=== PATIENT | male | born 1940 | race Caucasian/White ===

== ENCOUNTER 2018-10-19 05:28 | Observation (INO) ==
--- NOTE | 2018-09-23 09:39 | PAT Medication Instructions ---
Medication Instructions Date of Service September 23, 2018 Home Medications Red Raspberry Leaves 2 cap PO DAILY aspirin [Aspir-81] 162 mg PO DAILY finasteride 5 mg PO DAILY glipizide 20 mg PO DAILY lisinopril-hydrochlorothiazide 1 tab PO DAILY metformin 2,000 mg PO DAILY ASK your prescriber and surgeon aspirin [Aspir-81] 162 mg PO DAILY STOP taking 2 weeks before surgery Red Raspberry Leaves 2 cap PO DAILY DO NOT take the morning of surgery glipizide 20 mg PO DAILY lisinopril-hydrochlorothiazide 1 tab PO DAILY metformin 2,000 mg PO DAILY Take morning of surgery With a small sip of water, OTHERWISE NOTHING TO EAT OR DRINK AFTER MIDNIGHT: finasteride 5 mg PO DAILY Other Notes If you have any questions please call us at [phone] or [phone] or [phone] or [phone]
--- NOTE | 2018-09-23 12:35 | Anesthesiology Consultation ---
Date of Service September 23, 2018 Assessment & Plan (1) Encounter for pre-operative examination: - No previous anesthesia records re: intubation. -Patient does have concerns re: transportation. Uses a public medical transportation to get to appointments that would need to have 3 days notice p rior to bringing him to surgery. Explained that surgical schedule would not be ready at that point. Discussed with Maria Luisa Villanueva in Case Management and it was decided that, at patients request, patient would drive himself in the morning of surgery and park in a [employer] parking space. At that point he will call [phone] and notify the groover operator that he is here and someone will be sent to help get him out of his car and into a wheelchair. Patient will have family drive his car home later that day. Patient would like to be discharged to a rehab facility, but I told him this would need to be discussed with surgeon and case management after surgery. - Discussed with patient several times how to call the day before surgery to obtain what time he is to be here the day of surgery. Phone number [phone]) was highlighted for patient, along with the times that he is supposed to call (2-7pm) on 10/18/18. - Patient could be a possible difficult intubation due to thicker neck and shortened thyromental distance. Chart Review Chart Review: Acceptable Risk for Surgery and Patient seen in Pre Admission Testing Consults Requested medical (Dr. Brennan (09/05)) Patient was seen by his PCPs office on 09/05 for preoperative examination. Per note from that visit, patient is "medically cleared for surgery." Teaching & Discussion Pre-Anesthesia Teaching/Discussion Notes: Instructed NPO after midnight before surgery, except medications with 15 cc of water. Medication instructions provided according to the PAT guidelines. History Surgery Operation Date: 10/19/18 08:50 Proposed Procedures p Reconstruction of Right Chronic Quadriceps Rupture with Achilles Tendon Allograft - Jame Trevino MD Height/Weight Height: 5 ft 11 in Allergies Allergy/AdvReac Type Severity Reaction Status Date / Time No Known Allergies Allergy Unverified 09/21/18 10:25 Medications Home Medications Medication Instructions Recorded Confirmed Last Taken Red Armin Leaves 2 cap PO DAILY 09/21/18 09/21/18 Unknown aspirin [Aspir-81] 162 mg PO DAILY 09/21/18 09/21/18 Unknown finasteride 5 mg PO DAILY 09/21/18 09/21/18 Unknown glipizide 20 mg PO DAILY 09/21/18 09/21/18 Unknown lisinopril-hydrochlorothiazide 1 tab PO DAILY 09/21/18 09/21/18 Unknown metformin 2,000 mg PO DAILY 09/21/18 09/21/18 Unknown Past Medical History Medical History Diabetes History of asthma Hypertension Mobility impaired REASON FOR UPCOMING SURGERY Exercise / Class Metabolic Activity IV < 2 Limit ADL/Bedbound (Wheelchair bound. Can self transfer. ) Past Surgical History Surgical History History of appendectomy History of colonoscopy History of tonsillectomy History of total left knee replacement (TKR) Hx of foot surgery BOTH Past Anesthesia History No Hx of Anesthesia Complications and No Family Hx of Anesthesia Complications History of PONV No Hx of PONV and Hx of Motion Sickness Social History Smoking Status: Never smoker Do You Dip or Chew Tobacco: No Hx Alcohol Use: Yes Alcohol type: beer and hard liquor Alcohol Intake Frequency Comment: 1 BEER A WEEK Hx Substance Use: No substance use type: does not use Review of Systems Patient denies chest pain, shortness of breath, dyspnea on exertion, reflux, cough, wheezing, palpitations. +Joint Pain (Knees) Physical Exam Vital Signs BP: 144/89 P: 77 R: 16 T: 97.6 SPO2: 97% on RA Constitutional + morbidly obese ENMT Mouth: + dentures (Full Upper plate) and + poor dentition (on bottom with missing teeth) Thyromental Distance: < 3.5 Finger Breadths (2) Mallampati Class: I Neck normal visual inspection and + shortened thyromental distance Respiratory normal respiratory effort Auscultation: lungs clear to auscultation bilaterally Cardiovascular Rate/Rhythm: regular rate and regular rhythm Heart Sounds: no murmur Vessels: no carotid bruit Neurologic moves all extremities Psychiatric Orientation: alert and oriented x 3 Repeats self often. Easily confused. Testing Laboratory Results 09/23/18 13:23 PT 9.8 Seconds (9.0-12.0) 09/23/18 13:23 INR 1.0 (0.9-1.1) 09/23/18 13:23 APTT 25.2 Seconds (21.0-31.0) 09/23/18 13:23 [facility] 09/05/18 SODIUM: 140 POTASSIUM: 4.2 CHLORIDE: 105 CO2: 28.0 BUN: 16 CREATININE: 0.96 GLUCOSE: 102 H HgBA1C: 6.8 Electrocardiogram Date: 09/23/18 Findings: + NSR @ (75), + NSST changes and + no change from (05/22/15)
[2018-09-23 13:49] LABS: Basophils # (auto) 0.04 K/uL (0-0.2); Basophils % (auto) 0.6 %; Eosinophils # (auto) 0.25 K/uL (0-0.5); Eosinophils % (auto) 3.5 %; Hematocrit (blood only) 36.8 % (42-52); Hemoglobin 12.2 g/dL (14.0-18.0); Immature Granulocytes # (auto) 0.03 K/uL (0.00-0.02); Immature Granulocytes % (auto) 0.4 %; Lymphocytes # (auto) 1.95 K/uL (1.2-3.4); Lymphocytes % (auto) 27.5 %; Mean Corpuscular Hgb Conc 33.2 g/dL (32-36); Mean Corpuscular Volume 87.2 fL (80-100); Mean Platelet Volume 9.1 fL (7.4-10.4); Monocytes # (auto) 0.35 K/uL (0.11-0.59); Monocytes % (auto) 4.9 %; Neutrophils # (auto) 4.48 K/uL (1.4-6.5); Neutrophils % (auto) 63.1 %; Platelet Count 177 K/uL (130-400); RDW Coefficient of Variation 13.7 % (11.5-14.5); RDW Standard Deviation 43.4 fL (36.4-46.3); Red Blood Count 4.22 M/uL (4.7-6.1)
[2018-09-23 14:05] LABS: Partial Thromboplastin Ratio 0.9; Partial Thromboplastin Time 25.2 Seconds (21.0-31.0); Prothrombin Time 9.8 Seconds (9.0-12.0)
--- NOTE | 2018-09-28 19:18 | History and Physical Report ---
DATE OF ADMISSION: 10/19/2018 PATIENT OF: Jame Trevino MD. CHIEF COMPLAINT: Right quadriceps tendon chronic rupture. 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 His knee collapsed at that time and he reportedly had surgery by Dr. Fairchild at that time. He states he never got any better. He has weakness and cannot bear weight on the leg. He states he can drive with it. He has difficulty with motion. He previously spent several months at [facility] to rehabilitate his leg, but it did not get any better. He has been confined to a wheelchair for any significant distance. He is able to use a walker in his house for very short distances. He lives with his daughter and son-in-law. He has had cortisone injections in the past without improvement. He elects to proceed with right quadriceps reconstruction of chronic rupture with Achilles tendon allograft after being educated about the potential risks and outcomes. Preoperative imaging has been obtained. PAST MEDICAL HISTORY: Significant for osteoarthritis, diabetes, hypertension, known quadriceps tendon rupture, history of asthma. PREVIOUS SURGERIES: Tonsillectomy with adenoidectomy, appendectomy, foot surgery, left knee quadriceps tendon repair, right knee quadriceps tendon repair. CURRENT MEDICATIONS: Aspirin daily, finasteride unknown dose daily, glipizide unknown dose daily, lisinopril unknown dose daily, metformin 2 tablets daily unknown dose, red raspberry leaf concentrate daily. ALLERGIES: NKDA. SOCIAL HISTORY: The patient lives with his daughter and son-in-law. No tobacco use. Occasional ETOH use. Single. FAMILY HISTORY: Noncontributory. Parents are . REVIEW OF SYSTEMS: A total of 10 systems are reviewed and are significant only for the above-stated conditions. PHYSICAL EXAMINATION: VITAL SIGNS: Temperature 36.5, BP 150/80, heart rate 75, O2 sat 96% on room air. BMI of 32. GENERAL: A well-developed, well-nourished elderly white male in no acute distress. He is sitting in a wheelchair. Alert and oriented. Seems easily distracted. Conversation wanders. SKIN: Warm and dry with fair turgor. No rashes or lesions. No ecchymosis or erythema. Well-healed surgical scars present on both knees. No significant intraarticular effusion today. Palpable osteophytes. HEENT: Normocephalic, atraumatic. Eyes PERRLA, EOMI. Nares patent bilaterally without turbinate enlargement. Oropharynx without erythema or exudate. No lesions noted. Uvula midline. Oral mucosa moist. Fair dentition. Upper denture plate is noted. Lower fillings are noted. HEART: RRR. No MGR. LUNGS: Clear to auscultation bilaterally. No crackles, rhonchi or wheezing. Good air movement. ABDOMEN: Obese. Bowel sounds present x4, soft, nontender. No organomegaly. No masses. MUSCULOSKELETAL: Right knee has the above-stated scar as stated. Palpable defect in the right quadriceps. Superior migration of the distal quadriceps muscle. Passively, he is able to extend close to 0. Flexion to just past 90. No active extension against gravity. There is discomfort with palpation over the medial joint line. No lateral joint line discomfort. Stable collateral ligaments. NEUROLOGIC: Gross sensation is intact across both lower extremities by soft touch. DATA: Radiographic imaging previously obtained shows moderate medial compartment osteoarthritis of the knee as well as the patellofemoral joint. Periarticular osteophytes and joint space narrowing are present. He has a left total knee. Deficit is noted in the distal quadriceps tendon. IMPRESSION: Right quadriceps chronic rupture. PLAN: Postoperative prescriptions for Percocet and Coumadin will be provided at discharge from the hospital. Anticipate that this will be done under 23-hour observation. Preoperative lab work and EKG have been ordered. Medical clearance has been requested from his PCP. Anticipate discharge to either [facility] or to home. He already has a walker.
[2018-10-19] MEDS ORDERED: LR 15ML/HR IV SCH ×2 (06:00)
[2018-10-19] MEDS ORDERED: CEFAZOLIN 2000MG 2,000 MG/15 ML SYR IV SCH (06:00)
--- NOTE | 2018-10-19 06:31 | History & Physical Bridge Note ---
Date of Service October 19, 2018 History & Physical Bridge Note I have examined the patient, reviewed the History & Physical and in the interval since the performance of the History & Physical I have noted the following changes of clinical significance: consent obtained. no guarentees .no changes noted
[2018-10-19] MEDS ORDERED: ROPIVACAINE 0.5% 5 MG/ML 30 ML VIAL ONE (06:32)
[2018-10-19] MEDS ORDERED: MIDAZOLAM HCL 1 MG/ML 2ML VIAL ONE (07:37)
[2018-10-19] MEDS ORDERED: ATROPINE SULFATE 0.1 MG/ML 10ML SYR IV PRN (08:10)
[2018-10-19] MEDS ORDERED: ePHEDrine sulfate 50 MG/ML AMP IV PRN (08:10)
[2018-10-19] MEDS ORDERED: PROPOFOL IV EMULSION 10 MG/ML 20 ML VIAL IV ONE (08:14)
[2018-10-19] MEDS ORDERED: DEXAMETHASONE SOD INJ 4 MG/ML VIAL ONE (08:14)
[2018-10-19] MEDS ORDERED: fentaNYL citrate 100 MCG/2 ML VIAL ONE (08:14)
[2018-10-19] MEDS ORDERED: ONDANSETRON INJ 2 MG/ML 2 ML VIAL ONE ×2 (08:14→11:52)
[2018-10-19] MEDS ORDERED: LIDOCAINE HCL 2% 2 ML VIAL/AMP(20MG/ML) INFIL ONE (08:14)
[2018-10-19] MEDS ORDERED: BUPIVACAINE/EPINEPHRINE 0.5% MPF 1:200,000 30 ML VIAL ONE (09:22)
[2018-10-19] MEDS ORDERED: GLYCOPYRROLATE 0.2 MG/ML VIAL ONE (09:46)
[2018-10-19] MEDS ORDERED: ePHEDrine sulfate 50 MG/ML SYR ONE (09:46)
[2018-10-19] MEDS ORDERED: ALBUTEROL HFA INHALER 8.5 GM ONE (09:50)
--- NOTE | 2018-10-19 10:54 | Post Operative Brief Note ---
Immediate Post Op Note v1 Date of Surgery October 19, 2018 Pre & Post Diagnosis Operation Date: 10/19/18 08:50 Pre-Op Diagnosis: Right Quadriceps Tendon Chronic Rupture Post-Op Diagnosis: Right Quadriceps Tendon Chronic Rupture Procedure Operation Date: 10/19/18 08:50 Actual Procedures p Reconstruction of Right Chronic Quadriceps Rupture with Achilles Tendon Allograft(Right) - Jame Trevino MD Surgeon Jame Trevino MD Slag Skimmer stuart/tamara Estimated Blood Loss 50 Findings Consistent with Post-Op Diagnosis
--- NOTE | 2018-10-19 11:17 | Operative Report ---
Post Operative Report Pre & Post Diagnosis Operation Date: 10/19/18 08:50 Pre-Op Diagnosis: Right Quadriceps Tendon Chronic Rupture Post-Op Diagnosis: Right Quadriceps Tendon Chronic Rupture Procedure Operation Date: 10/19/18 08:50 Actual Procedures p Reconstruction of Right Chronic Quadriceps Rupture with Achilles Tendon Allograft(Right) - Jame Trevino MD Surgeon Jame Trevino MD Gameplay Engineer vi/tamara Estimated Blood Loss 50 Findings Consistent with Post-Op Diagnosis Specimens None Complications none Disposition Accompanied Patient To Recovery: Yes Disposition: Recovery Room Indications 78/M with failed quads rupture repair has elected to go for allograft reconstruction today Description of Procedure Supine position, standard prep and drape, time out for patient safety, exploration through old incision and quads reconstruction with achilles allograft + calcaneal bone block. Please see Dr Trevino's procedure notes for specific details. I was present throughout the case, assited in wound closure, application of splint and transferred the patient to PACU in stable condition. I attest to the content of the Intraoperative Record and any orders documented therein. Any exceptions are noted below.
[2018-10-19] MEDS: HYDROmorphone INJ 2 MG/ML SYR/VIAL IV PRN ×3 (11:30→11:45)
--- NOTE | 2018-10-19 11:31 | Operative Report ---
DATE OF OPERATION: 10/19/2018 SURGEON: Jame Trevino MD. ASSISTANTS: El is the fellow and Zac is second junior assistant manager PA. PREOPERATIVE DIAGNOSES: Chronic quadriceps rupture with marked deficiency and extensor lag of the right lower extremity, osteoarthritis of the right knee. POSTOPERATIVE DIAGNOSES: Chronic quadriceps rupture with marked deficiency and extensor lag of the right lower extremity, osteoarthritis of the right knee. OPERATION PERFORMED: Reconstruction of the extensor mechanism using Achilles allograft.Right knee. PERIOPERATIVE SITUATION: Medically cleared male who is limited basically to a wheelchair activity based on the fact he has bilateral chronic quadriceps ruptures on the left knee. He has a knee replacement. On the right knee, at this point in time, he wants to try to salvage his own knee by doing an extensor mechanism reconstruction. A fusion was offered to him. He denied that request. He understands that this may not work. DESCRIPTION OF PROCEDURE: The patient was appropriately identified, site verified, consent verified. Antibiotics were confirmed as being given. The right lower extremity was prepped and draped in usual routine fashion. There was no tourniquet applied or utilized. The midline exposure was blocked with 0.5% plain Marcaine and full thickness skin flaps raised. The area of the defect was quite obvious. There was actually a communication directly in the joint. All of this was excised, leaving about 3.5 to 4 cm gap. The adhesions on the undersurface of the quadriceps were then mobilized digitally and with scissors. Care taken to protect any neurovascular structures. Good mobilization was obtained. This got the defect down to about 3 cm once it was mobilized. The patella was then dissected subperiosteally on its dorsal surface anteriorly. A trough was then cut with a power bur and then 2 large JuggerKnot anchors were placed. They were double loaded. They were not palpable into the defect or into the intraarticular side of the joint. Once this was done, the graft was then trimmed to fit into the socket that was made in the dorsal surface of the patella with a power bur, it was roughly a centimeter squared area. This was then also tied in with a smaller JuggerKnot placed distally and then placed through the center of the graft, tied that down nicely and then the soft tissue over the top of the graft was sewn over with a stitch and additional sutures and then proximally, the graft was anchored with the JuggerKnots that were placed in the superior surface of the patella. This fixed the area very very nicely and was able to pull on that with no difficulty and no displacement. Once this was all completed, the graft was then placed and run superiorly with a Fate whipstitch and baseball stitches along the medial and lateral side and then the area was also closed with #2 Vicryl medially and laterally. The graft was then flapped down over itself and closed at the lateral defect lateral retinaculum and then was anchored back down the patella with multiple sutures. The 2 remaining sutures that were left on the double loaded anchors were then tied through all of this and created a tension band over the top of the dorsal surface of the area of the bone block inlay. This allowed excellent repair. The knee could then be placed through a range of motion of 0-40-50 degrees with no difficulty. There was good tension on the extensor mechanism. The wound was then irrigated. EBL was roughly 40-50 mL. Fluid per anesthesia. No pathology pending. Wound was then closed with 2-0 Vicryl and stainless steel clips. Appropriate dressing applied including a splint and a knee immobilizer. He will be kept full weightbearing with no range of motion of the knee for 4-6 weeks. DVT prophylaxis with Coumadin. Overall prognosis for this knee is very guarded. I attest to the content of the Intraoperative Record and any orders documented therein. Any exceptions are noted below. DEMETRIUS
--- NOTE | 2018-10-19 11:51 | XRay Report ---
XR knee RT 2V routine CLINICAL HISTORY: post op R knee COMPARISON STUDY: Right knee 05/24/2018. FINDINGS: Midline anterior skin arabella are in place. Soft tissue swelling and soft tissue gas anteri sami consistent with postoperative change. Moderate tricompartmental osteoarthritis. No erosive horton es identified. IMPRESSION: Anterior soft tissue swelling/gas with anterior skin arabella consistent with the recent postoperative change. Electronically signed by: Deuce Watts M.D. 10/19/2018 11:49 AM
[2018-10-19] MEDS ORDERED: ONDANSETRON INJ 2 MG/ML 2 ML VIAL IV PRN ×2 (11:53→14:02)
--- NOTE | 2018-10-19 11:53 | Progress Note ---
DATE: 10/19/2018 Status post quadriceps reconstruction of his right lower extremity. The patient is doing well, is awake, alert, has no chest pain, shortness of breath, fever, chills, nausea, vomiting or headache. Neurovascular check of right lower extremity reveals active extension and flexion of the toes, there is minimal discomfort. Wound dressing is clean, dry and intact. ASSESSMENT: Doing well status post quadriceps reconstruction. I will have case management see him for potential transfer versus home services. He will need to keep his leg straight without bending it for at least 4 weeks, maybe longer. Status post chronic quadriceps reconstruction procedure. He can be weightbearing, but no bending of the knee. He understands this. Deep venous thrombosis prophylaxis with Coumadin. DEMETRIUS
--- NOTE | 2018-10-19 12:02 | Operative Report ---
Post Operative Report Pre & Post Diagnosis Operation Date: 10/19/18 08:50 Pre-Op Diagnosis: Right Quadriceps Tendon Chronic Rupture Post-Op Diagnosis: Right Quadriceps Tendon Chronic Rupture Procedure Operation Date: 10/19/18 08:50 Actual Procedures p Reconstruction of Right Chronic Quadriceps Rupture with Achilles Tendon Allograft(Right) - Jame Trevino MD Surgeon ZE Trevino MD Clinical Applications Manager vi/tamara Estimated Blood Loss 50 Findings Consistent with Post-Op Diagnosis Specimens None Drains None Complications none Disposition Accompanied Patient To Recovery: Yes Disposition: Recovery Room Indications This 78-year-old white male presented to the office with complaints of right quadricep weakness and inability to ambulate due to his weakness. Patient previously had a quadriceps tendon rupture that was repaired. It has failed. He elected to proceed with surgical intervention after being educated about potential risks and outcomes. Preoperative imaging was obtained. Description of Procedure Patient was administered a regional block and then taken to the operating room where he was given general anesthesia. He was prepped and draped in the usual sterile fashion. Please see Dr. Trevino's operative report for specifics of the procedure. I was present for the entire case from initial patient positioning through final wound closure. Assistance was provided in tissue retraction, hemostasis, graft preparation, graft placement, and final wound closure. Patient was taken to the recovery room in satisfactory condition. I attest to the content of the Intraoperative Record and any orders documented therein. Any exceptions are noted below.
[2018-10-19] MEDS ORDERED: PROMETHAZINE HCL 6.25 MG in SODIUM CHLORIDE 0.9% 50 ML IV STA (12:07)
[2018-10-19] MEDS ORDERED: BISACODYL 10 MG SUPP PR PRN (14:02)
[2018-10-19] MEDS ORDERED: HYDROmorphone INJ 0.5 MG/0.5 ML SYR IV PRN (14:02)
[2018-10-19] MEDS ORDERED: MAGNESIUM HYDROXIDE SUSP 30 ML UDC PO PRN (14:02)
[2018-10-19] MEDS ORDERED: DiphenhydrAMINE HCL 50 MG/ML VIAL IV PRN (14:02)
[2018-10-19] MEDS ORDERED: TRAMADOL HCL 50 MG TABLET PO PRN (14:02)
[2018-10-19] MEDS ORDERED: SODIUM CHLORIDE 0.9% 1000ML 1,000 ML IV SCH (14:02)
[2018-10-19] MEDS ORDERED: TAMSULOSIN HCL 0.4 MG CAP PO PRN (14:02)
[2018-10-19] MEDS ORDERED: METOCLOPRAMIDE HCL INJ 5 MG/ML 2 ML VIAL IV PRN (14:02)
[2018-10-19] MEDS ORDERED: ALUMINUM/MAGNESIUM SUSP 30 ML UDC PO PRN (14:02)
[2018-10-19] MEDS ORDERED: NALOXONE HCL 0.4 MG/1 ML VIAL/CARP IV PRN (14:02)
[2018-10-19] MEDS ORDERED: CARBOHYDRATES FOR HYPOGLYCEMIA PO PRN (14:30)
[2018-10-19] MEDS ORDERED: GLUCAGON FOR INJ 1 MG VIAL IM PRN (14:30)
[2018-10-19] MEDS ORDERED: GLUCOSE 40% GEL 15 GM TUBE PO PRN (14:30)
[2018-10-19] MEDS ORDERED: DEXTROSE 50% 50 ML SYRINGE IV PRN (14:30)
[2018-10-19] MEDS ORDERED: GLUCOSE 10 TABS/TUBE PO PRN (14:30)
[2018-10-19] MEDS: ACETAMINOPHEN 500 MG TAB PO SCH ×2 (14:42→21:17)
[2018-10-19] MEDS: ORTHO WARFARIN NOMOGRAM SCH (14:46)
--- NOTE | 2018-10-19 15:36 | Anesthesiology Progress Note ---
Date of Service October 19, 2018 Anesthesia Post Procedure Vital Signs Vital Signs: Temp Pulse Pulse Pulse Resp BP BP 10/19/18 15:22 36.3 C L 79 16 145/67 H 10/19/18 14:03 36.4 C L 75 12 142/71 H 10/19/18 13:20 36.4 C L 80 8 L 148/73 H 10/19/18 12:57 36.2 C L 10/19/18 12:55 78 14 10/19/18 12:51 68 14 10/19/18 12:50 68 67 14 154/62 H 154/62 H 10/19/18 12:46 69 14 10/19/18 12:45 67 14 150/60 H 10/19/18 12:41 66 14 10/19/18 12:40 63 66 12 156/61 H 156/61 H 10/19/18 12:36 64 14 10/19/18 12:35 64 12 140/60 10/19/18 12:31 56 L 14 10/19/18 12:30 59 L 60 16 151/69 H 151/69 H 10/19/18 12:25 77 17 10/19/18 12:24 75 23 176/78 H 10/19/18 12:21 81 19 10/19/18 12:20 36.8 C 87 88 16 184/78 H 176/78 H 10/19/18 12:16 73 17 10/19/18 12:15 61 17 164/74 H 10/19/18 12:11 73 14 10/19/18 12:10 60 14 169/74 H 10/19/18 12:06 70 12 10/19/18 12:05 78 19 177/88 H 10/19/18 12:01 72 14 10/19/18 12:00 73 25 H 169/80 H 10/19/18 11:58 36.3 C L 10/19/18 11:56 59 L 14 10/19/18 11:55 64 14 164/66 H 10/19/18 11:51 71 13 10/19/18 11:50 75 17 157/88 H 10/19/18 11:46 81 20 10/19/18 11:45 79 19 164/76 H 10/19/18 11:41 77 23 10/19/18 11:40 74 19 159/69 H 10/19/18 11:36 73 14 10/19/18 11:35 77 13 161/73 H 10/19/18 11:31 77 18 10/19/18 11:30 76 13 161/78 H 10/19/18 11:26 80 13 10/19/18 11:25 78 19 156/80 H 10/19/18 11:21 79 18 10/19/18 11:20 80 20 152/72 H 10/19/18 11:16 88 18 10/19/18 11:15 88 17 159/72 H 10/19/18 11:14 36.1 C L 89 87 16 157/63 H 157/63 H 10/19/18 09:05 59 L 18 155/74 H 10/19/18 08:55 62 18 152/75 H 10/19/18 08:45 56 L 18 146/87 H 10/19/18 08:35 76 18 151/76 H 10/19/18 08:25 81 18 153/79 H 10/19/18 08:15 70 18 172/96 H 10/19/18 06:42 36.7 C 76 18 143/73 H Pulse Ox 10/19/18 15:22 96 10/19/18 14:03 97 10/19/18 13:20 97 10/19/18 12:57 98 10/19/18 12:55 94 10/19/18 12:51 95 10/19/18 12:50 96 10/19/18 12:46 97 10/19/18 12:45 96 10/19/18 12:41 98 10/19/18 12:40 98 10/19/18 12:36 98 10/19/18 12:35 98 10/19/18 12:31 98 10/19/18 12:30 98 10/19/18 12:25 96 10/19/18 12:24 95 10/19/18 12:21 96 10/19/18 12:20 96 10/19/18 12:16 96 10/19/18 12:15 95 10/19/18 12:11 95 10/19/18 12:10 95 10/19/18 12:06 94 10/19/18 12:05 96 10/19/18 12:01 98 10/19/18 12:00 98 10/19/18 11:58 99 10/19/18 11:56 94 10/19/18 11:55 93 10/19/18 11:51 95 10/19/18 11:50 90 10/19/18 11:46 95 10/19/18 11:45 95 10/19/18 11:41 100 10/19/18 11:40 100 10/19/18 11:36 100 10/19/18 11:35 100 10/19/18 11:31 100 10/19/18 11:30 99 10/19/18 11:26 100 10/19/18 11:25 99 10/19/18 11:21 100 10/19/18 11:20 100 10/19/18 11:16 91 10/19/18 11:15 93 10/19/18 11:14 93 10/19/18 09:05 100 10/19/18 08:55 100 10/19/18 08:45 100 10/19/18 08:35 100 10/19/18 08:25 100 10/19/18 08:15 99 10/19/18 06:42 93 Pain Intensity Right Upper Leg: Pain Intensity: 4 Transfer of Care Handoff Completed per policy Notes Mental Status: alert / awake / arousable Patient Amnestic to Procedure: Yes Nausea / Vomiting: adequately controlled Pain: adequately controlled Airway Patency, RR, SpO2: stable & adequate BP & HR: stable & adequate Hydration State: stable & adequate Anesthetic Complications: no major complications apparent and Pt Satisfied with anesthetic care
[2018-10-19] MEDS ORDERED: WARFARIN SOD 5 MG TAB PO ONE (16:00)
[2018-10-19] MEDS: KETOROLAC TROMETHAMINE 15 MG/ML VIAL IV SCH ×2 (16:40→22:30)
[2018-10-19] MEDS: CEFAZOLIN 2000MG 2,000 MG/15 ML SYR IV SCH (17:56)
[2018-10-19] MEDS: INSULIN ASPART 100 UNITS/ML 3 ML PEN SC SCH ×2 (18:39→21:20)
[2018-10-19] MEDS ORDERED: SENNA 8.6 MG TAB PO SCH (21:00)
[2018-10-19] MEDS: DOCUSATE SODIUM 100 MG CAP PO SCH (21:17)
[2018-10-20] MEDS: CEFAZOLIN 2000MG 2,000 MG/15 ML SYR IV SCH (02:01)
[2018-10-20] MEDS: KETOROLAC TROMETHAMINE 15 MG/ML VIAL IV SCH ×2 (05:02→09:04)
[2018-10-20 05:21] LABS: Hematocrit (blood only) 29.2 % (42-52); Hemoglobin 9.8 g/dL (14.0-18.0); Mean Corpuscular Hgb Conc 33.6 g/dL (32-36); Mean Corpuscular Volume 87.2 fL (80-100); Mean Platelet Volume 8.4 fL (7.4-10.4); Platelet Count 128 K/uL (130-400); RDW Coefficient of Variation 13.8 % (11.5-14.5); RDW Standard Deviation 43.9 fL (36.4-46.3); Red Blood Count 3.35 M/uL (4.7-6.1); White Blood Count 7.46 K/uL (4.8-10.8)
[2018-10-20 05:31] LABS: Prothrombin Time 10.4 Seconds (9.0-12.0)
[2018-10-20 05:50] LABS: BUN Creatinine Ratio 24.4 (10-20); Calcium 8.1 mg/dl (8.5-10.1); Est GFR (African American) 71.5; Est GFR (Non-African American) 61.7; Potassium 3.8 mmol/L (3.5-5.1)
[2018-10-20] MEDS: ACETAMINOPHEN 500 MG TAB PO SCH ×2 (06:38→12:58)
--- NOTE | 2018-10-20 07:41 | Progress Note ---
DATE: 10/20/2018 SUBJECTIVE: Status post extensor mechanism reconstruction, right lower extremity. At this point in time, the patient is doing well with no major issues. He was able to get up out of bed. He denies any severe pain. He is sitting up comfortably. He denies chest pain, shortness of breath, fever, chills, nausea, vomiting, or headache. OBJECTIVE: VITAL SIGNS: Stable. He is afebrile. NEUROLOGIC: Neurovascular check, femoral sciatic nerve is normal. LABORATORY DATA: Hematocrit stable at 29.2. White count 7.46. INR is 1.0. Glucoses are back down into the 90 range. ASSESSMENT AND PLAN: Doing well. At this point in time, he is stable medically to be discharged. He will need to be placed due to his poor orthopedic function of both lower extremities involvement and having a reconstruction of his extensor mechanism although still having a significant defect in his extensor mechanism. He is having some issues with understanding placement requirements. Case management is working with him diligently. Hopefully, they will be able to come to a mutually agreeable decision. He can be discharged again today. DEMETRIUS
--- NOTE | 2018-10-20 07:51 | Discharge Summary ---
CHIEF COMPLAINT: Right leg weakness. 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 He had a repair done over 3 years ago. At this point in time, options were discussed with the patient for potential knee fusion versus extensor mechanism disruption. He also has arthritis in that knee and was also requesting a knee replacement, but in the face of extensor mechanism deficiency that is not possible. At this point in time, he wants to try to give his knee the best shot possible and wants to have the extensor mechanism reconstructed that was performed yesterday. PAST MEDICAL HISTORY: Remarkable for osteoarthritis, diabetes, hypertension, chronic quad ruptures bilaterally, and history of asthma. PAST SURGICAL HISTORY: Includes tonsillectomy, adenoidectomy, appendectomy, foot surgery, left knee quadriceps tendon repair, right knee quadriceps tendon repair, left knee replacement. MEDICATIONS: Previous medications prior to admission include aspirin, finasteride, glipizide, lisinopril, metformin, red raspberry. ALLERGIES: None. SOCIAL HISTORY: Reveals he lives with his daughter and son-in-law. No tobacco or major alcohol use. He is single. FAMILY HISTORY: Noncontributory. Parents are . REVIEW OF SYSTEMS: Noncontributory. ASSESSMENT: Status post extensor mechanism rupture repair and reconstruction with Achilles allograft. At this point in time, the patient did well overnight. He has minimal pain. His neurovascular check of femoral sciatic nerve is normal. He can do a straight leg raise with his splint and his knee immobilizer on. He can do ankle pumps. He has been up out of bed with a walker. Main issue is going to be placement. He has a significant misunderstanding of what this process involves. Case management is working with him to have him understand. We hopefully get him placed today. He is ready for discharge from a medical perspective. He will need functional rehabilitation due to his general deconditioning of both lower extremities. His knee is to be made safe. Follow up with me in 2 weeks. Do not remove the right leg splint, dressing or knee immobilizer, which need to be on at all times / until further seen. We will keep him immobilized for probably 6 weeks.
--- NOTE | 2018-10-20 08:23 | Anesthesiology Progress Note ---
Date of Service October 20, 2018 Anesthesia Post Procedure Vital Signs Vital Signs: Temp Pulse Pulse Pulse Resp BP BP 10/20/18 07:04 36.5 C 79 18 146/71 H 10/20/18 03:49 36.5 C 72 16 123/71 10/19/18 23:16 36.5 C 89 16 158/71 H 10/19/18 19:48 36.4 C L 87 16 163/74 H 10/19/18 16:50 36.5 C 78 16 129/68 10/19/18 15:22 36.3 C L 79 16 145/67 H 10/19/18 14:03 36.4 C L 75 12 142/71 H 10/19/18 13:20 36.4 C L 80 8 L 148/73 H 10/19/18 12:57 36.2 C L 10/19/18 12:55 78 14 10/19/18 12:51 68 14 10/19/18 12:50 68 67 14 154/62 H 154/62 H 10/19/18 12:46 69 14 10/19/18 12:45 67 14 150/60 H 10/19/18 12:41 66 14 10/19/18 12:40 63 66 12 156/61 H 156/61 H 10/19/18 12:36 64 14 10/19/18 12:35 64 12 140/60 10/19/18 12:31 56 L 14 10/19/18 12:30 59 L 60 16 151/69 H 151/69 H 10/19/18 12:25 77 17 10/19/18 12:24 75 23 176/78 H 10/19/18 12:21 81 19 10/19/18 12:20 36.8 C 87 88 16 184/78 H 176/78 H 10/19/18 12:16 73 17 10/19/18 12:15 61 17 164/74 H 10/19/18 12:11 73 14 10/19/18 12:10 60 14 169/74 H 10/19/18 12:06 70 12 10/19/18 12:05 78 19 177/88 H 10/19/18 12:01 72 14 10/19/18 12:00 73 25 H 169/80 H 10/19/18 11:58 36.3 C L 10/19/18 11:56 59 L 14 10/19/18 11:55 64 14 164/66 H 10/19/18 11:51 71 13 10/19/18 11:50 75 17 157/88 H 10/19/18 11:46 81 20 10/19/18 11:45 79 19 164/76 H 10/19/18 11:41 77 23 10/19/18 11:40 74 19 159/69 H 10/19/18 11:36 73 14 10/19/18 11:35 77 13 161/73 H 10/19/18 11:31 77 18 10/19/18 11:30 76 13 161/78 H 10/19/18 11:26 80 13 10/19/18 11:25 78 19 156/80 H 10/19/18 11:21 79 18 10/19/18 11:20 80 20 152/72 H 10/19/18 11:16 88 18 10/19/18 11:15 88 17 159/72 H 10/19/18 11:14 36.1 C L 89 87 16 157/63 H 157/63 H 10/19/18 09:05 59 L 18 155/74 H 10/19/18 08:55 62 18 152/75 H 10/19/18 08:45 56 L 18 146/87 H 10/19/18 08:35 76 18 151/76 H 10/19/18 08:25 81 18 153/79 H Pulse Ox 10/20/18 07:04 95 10/20/18 03:49 97 10/19/18 23:16 96 10/19/18 19:48 97 10/19/18 16:50 93 10/19/18 15:22 96 10/19/18 14:03 97 10/19/18 13:20 97 10/19/18 12:57 98 10/19/18 12:55 94 10/19/18 12:51 95 10/19/18 12:50 96 10/19/18 12:46 97 10/19/18 12:45 96 10/19/18 12:41 98 10/19/18 12:40 98 10/19/18 12:36 98 10/19/18 12:35 98 10/19/18 12:31 98 10/19/18 12:30 98 10/19/18 12:25 96 10/19/18 12:24 95 08/28/19 12:21 96 10/19/18 12:20 96 10/19/18 12:16 96 10/19/18 12:15 95 10/19/18 12:11 95 10/19/18 12:10 95 10/19/18 12:06 94 10/19/18 12:05 96 10/19/18 12:01 98 10/19/18 12:00 98 10/19/18 11:58 99 10/19/18 11:56 94 10/19/18 11:55 93 10/19/18 11:51 95 10/19/18 11:50 90 10/19/18 11:46 95 10/19/18 11:45 95 10/19/18 11:41 100 10/19/18 11:40 100 10/19/18 11:36 100 10/19/18 11:35 100 10/19/18 11:31 100 10/19/18 11:30 99 10/19/18 11:26 100 10/19/18 11:25 99 10/19/18 11:21 100 10/19/18 11:20 100 10/19/18 11:16 91 10/19/18 11:15 93 10/19/18 11:14 93 10/19/18 09:05 100 10/19/18 08:55 100 10/19/18 08:45 100 10/19/18 08:35 100 10/19/18 08:25 100 Pain Intensity Right Upper Leg: Pain Intensity: 4 Right Leg: Pain Intensity: 2 Notes Mental Status: alert / awake / arousable and participated in evaluation Patient Amnestic to Procedure: Yes Nausea / Vomiting: adequately controlled Pain: adequately controlled Airway Patency, RR, SpO2: stable & adequate BP & HR: stable & adequate Hydration State: stable & adequate Neuraxial Anesthesia: sensory block resolved Anesthetic Complications: Pt Satisfied with anesthetic care
[2018-10-20] MEDS ORDERED: FINASTERIDE 5 MG TAB PO SCH (09:00)
[2018-10-20] MEDS ORDERED: LISINOPRIL/HCTZ 20/12.5MG 1 TAB TAB PO SCH (09:00)
[2018-10-20] MEDS ORDERED: MULTIVITAMIN TAB PO SCH (09:00)
[2018-10-20] MEDS ORDERED: ASPIRIN 81 MG ECTAB PO SCH (09:00)
[2018-10-20] MEDS: DOCUSATE SODIUM 100 MG CAP PO SCH (09:03)
[2018-10-20] MEDS: INSULIN ASPART 100 UNITS/ML 3 ML PEN SC SCH ×2 (09:05→12:58)
[2018-10-20] MEDS: ORTHO WARFARIN NOMOGRAM SCH (12:30)
[2018-10-20] MEDS ORDERED: WARFARIN SOD 5 MG TAB PO SCH (16:00)
== END 2018-10-20 16:15 ==
LOC: ASU 05:28 → 3E 05:28

== ENCOUNTER 2018-11-02 22:42 | Inpatient (IN) ==
[2018-11-02] MEDS ORDERED: SODIUM CHLORIDE 0.9% 500 ML IV SCH (23:00)
[2018-11-02] MEDS ORDERED: SODIUM CHLORIDE 0.9% 250 ML IV PRN (23:16)
[2018-11-02] MEDS ORDERED: SODIUM CHLORIDE 0.9% 1000ML 500 ML IV ONE (23:18)
[2018-11-02 23:23] LABS: iSTAT Creatinine 1.4 mg/dl (0.6-1.3); iSTAT Hemoglobin 6.1 g/dl (14.0-18.0); iSTAT Ionized Calcium 1.02 mmol/l (1.12-1.32); iSTAT Potassium 4.7 mEq/L (3.3-5.0)
--- NOTE | 2018-11-02 23:33 | Emergency Department Note ---
Entered by Grace Reardon acting as a scribe for History of Present Illness General Chief complaint: Syncope Stated complaint: FALL, HYPOTENSION, SYNCOPE Source: patient History of Present Illness Onset (ago): unknown Location: head, upper extremity and lower extremity Quality: + other (syncope) Associated symptoms: + other (Positive dizziness. Negative hx of stroke, hx of brain bleeds, prior blood transfusion, hx of a stomach bleed); no chest pain and no shortness of breath The patient is a 78 year old male who presents to the ED complaining of a syncopal episode with an unknown onset. He states he is dizzy and feels like the room is spinning. He states he has never had anything like this in the past. Pt denies any chest pain, SOB, hx of stroke, hx of brain bleeds, prior blood transfusion, hx of a stomach bleed. He is repeatedly stating he is "going to pass out." Pt is on coumadin. Home Medications Home Medications Medication Instructions Recorded Confirmed Type aspirin [Aspir-81] 162 mg PO QAM 09/21/18 11/02/18 History finasteride [Proscar] 5 mg PO QAM 09/21/18 11/02/18 History glipizide 20 mg PO QAM 09/21/18 11/02/18 History metformin 1,000 mg PO QAM 09/21/18 11/02/18 History oxycodone-acetaminophen [Percocet] 2 tab PO Q4H PRN #30 tab MDD 3GM 10/20/18 11/02/18 Rx APAP acetaminophen [Tylenol] 650 mg PO Q4H PRN MDD 3G 11/02/18 11/02/18 History ferrous sulfate 325 mg PO TID 11/02/18 11/02/18 History ondansetron HCl [Zofran] 4 mg PO Q6H PRN 11/02/18 11/02/18 History polyethylene glycol 3350 [Miralax] 17 g PO QAM 11/02/18 11/02/18 History warfarin 2 mg PO HS 11/02/18 11/02/18 History lisinopril-hydrochlorothiazide 1 tab PO QAM 11/03/18 11/03/18 History sennosides 8.6 mg PO QAM 11/03/18 11/03/18 History Allergies Allergy/AdvReac Type Severity Reaction Status Date / Time No Known Allergies Allergy Unverified 11/02/18 23:57 Past Med/Surg History Medical History Diabetes History of asthma Hypertension Mobility impaired REASON FOR UPCOMING SURGERY Surgical History History of appendectomy History of colonoscopy History of tonsillectomy History of total left knee replacement (TKR) Hx of foot surgery BOTH Family History Other Family history non-contributory Social History Preferred Language: Malian Communication Ability: Effective Flume Worker Required: No Beliefs That Will Affect Care: Sabianist Sabianist Beliefs: JAIN Current Living Situation: Family Feels Safe at Home: Yes Smoking Status: Never smoker Hx Alcohol Use: Yes Alcohol type: beer and hard liquor Hx Substance Use: No Review of Systems See HPI for pertinent positives & negatives. and A total of 10 systems reviewed and were otherwise negative Physical Exam Vital Signs Vital Signs - 24 hr 11/02/18 22:45 11/02/18 22:48 11/02/18 22:57 Temperature 36.5 C Temperature Source Oral Sepsis Recent Fever Within 48 Hours No Sepsis New/Unexplained Change in Mental Status No Sepsis Action Taken by Nursing No Action Required Pulse Rate 104 H 104 H 103 H Pulse Rate from SpO2 Sensor 104 H 105 H Respiratory Rate 29 H 23 23 Respiratory Effort / Characteristics Non-Labored Respiratory Depth Normal Respiratory Pattern Regular Blood Pressure 113/53 L 113/53 L Blood Pressure Mean 73 73 Pulse Oximetry 96 98 98 Oxygen Delivery Method Room Air Nasal Cannula Nasal Cannula Oxygen Flow Rate 4 4 11/02/18 23:00 11/02/18 23:05 11/02/18 23:10 Temperature Temperature Source Sepsis Recent Fever Within 48 Hours Sepsis New/Unexplained Change in Mental Status Sepsis Action Taken by Nursing Pulse Rate 102 H 104 H 100 H Pulse Rate from SpO2 Sensor 101 H 104 H 101 H Respiratory Rate 25 H 25 H 21 Respiratory Effort / Characteristics Respiratory Depth Respiratory Pattern Blood Pressure Blood Pressure Mean Pulse Oximetry 97 98 98 Oxygen Delivery Method Nasal Cannula Nasal Cannula Nasal Cannula Oxygen Flow Rate 4 4 4 11/02/18 23:15 11/02/18 23:20 11/02/18 23:25 Temperature Temperature Source Sepsis Recent Fever Within 48 Hours Sepsis New/Unexplained Change in Mental Status Sepsis Action Taken by Nursing Pulse Rate 100 H 100 H 98 H Pulse Rate from SpO2 Sensor 98 H 102 H 99 H Respiratory Rate 19 24 26 H Respiratory Effort / Characteristics Respiratory Depth Respiratory Pattern Blood Pressure Blood Pressure Mean Pulse Oximetry 93 96 98 Oxygen Delivery Method Nasal Cannula Nasal Cannula Nasal Cannula Oxygen Flow Rate 4 4 4 11/02/18 23:30 11/02/18 23:35 11/02/18 23:40 Temperature Temperature Source Sepsis Recent Fever Within 48 Hours Sepsis New/Unexplained Change in Mental Status Sepsis Action Taken by Nursing Pulse Rate 100 H 110 H 107 H Pulse Rate from SpO2 Sensor 100 H Respiratory Rate 29 H 16 24 Respiratory Effort / Characteristics Respiratory Depth Respiratory Pattern Blood Pressure Blood Pressure Mean Pulse Oximetry 95 Oxygen Delivery Method Nasal Cannula Nasal Cannula Nasal Cannula Oxygen Flow Rate 4 4 4 11/02/18 23:45 11/02/18 23:50 11/02/18 23:55 Temperature Temperature Source Sepsis Recent Fever Within 48 Hours Sepsis New/Unexplained Change in Mental Status Sepsis Action Taken by Nursing Pulse Rate 99 H 98 H 99 H Pulse Rate from SpO2 Sensor 97 H 98 H 98 H Respiratory Rate 28 H 27 H 22 Respiratory Effort / Characteristics Respiratory Depth Respiratory Pattern Blood Pressure 93/46 L Blood Pressure Mean 61 Pulse Oximetry 97 100 98 Oxygen Delivery Method Nasal Cannula Nasal Cannula Nasal Cannula Oxygen Flow Rate 4 4 4 11/03/18 00:00 11/03/18 00:01 11/03/18 00:05 Temperature Temperature Source Sepsis Recent Fever Within 48 Hours Sepsis New/Unexplained Change in Mental Status Sepsis Action Taken by Nursing Pulse Rate 100 H 106 H 102 H Pulse Rate from SpO2 Sensor 99 H 105 H 102 H Respiratory Rate 28 H 25 H 25 H Respiratory Effort / Characteristics Respiratory Depth Respiratory Pattern Blood Pressure 75/56 L Blood Pressure Mean 74 62 Pulse Oximetry 99 96 100 Oxygen Delivery Method Nasal Cannula Nasal Cannula Nasal Cannula Oxygen Flow Rate 4 4 4 11/03/18 00:18 11/03/18 00:19 11/03/18 00:20 Temperature 36.5 C Temperature Source Oral Sepsis Recent Fever Within 48 Hours Sepsis New/Unexplained Change in Mental Status Sepsis Action Taken by Nursing Pulse Rate 98 H 97 H 95 H Pulse Rate from SpO2 Sensor Respiratory Rate 22 22 24 Respiratory Effort / Characteristics Respiratory Depth Respiratory Pattern Blood Pressure 98/48 L 87/44 L 87/44 L Blood Pressure Mean 64 58 58 Pulse Oximetry 96 Oxygen Delivery Method Oxygen Flow Rate 4 11/03/18 00:25 11/03/18 00:30 11/03/18 00:31 Temperature Temperature Source Sepsis Recent Fever Within 48 Hours Sepsis New/Unexplained Change in Mental Status Sepsis Action Taken by Nursing Pulse Rate 94 H 102 H 102 H Pulse Rate from SpO2 Sensor 103 H Respiratory Rate 21 18 19 Respiratory Effort / Characteristics Respiratory Depth Respiratory Pattern Blood Pressure 84/52 L 81/67 L Blood Pressure Mean 62 71 Pulse Oximetry 100 Oxygen Delivery Method Nasal Cannula Oxygen Flow Rate 4 11/03/18 00:35 11/03/18 00:36 11/03/18 00:37 Temperature 36.4 C L Temperature Source Oral Sepsis Recent Fever Within 48 Hours Sepsis New/Unexplained Change in Mental Status Sepsis Action Taken by Nursing Pulse Rate 102 H 101 H 102 H Pulse Rate from SpO2 Sensor 104 H 101 H Respiratory Rate 24 15 24 Respiratory Effort / Characteristics Respiratory Depth Respiratory Pattern Blood Pressure 110/59 L 110/59 L Blood Pressure Mean 76 76 Pulse Oximetry 99 100 100 Oxygen Delivery Method Nasal Cannula Nasal Cannula Oxygen Flow Rate 4 4 11/03/18 00:40 11/03/18 00:46 11/03/18 00:50 Temperature Temperature Source Sepsis Recent Fever Within 48 Hours Sepsis New/Unexplained Change in Mental Status Sepsis Action Taken by Nursing Pulse Rate 102 H 102 H 103 H Pulse Rate from SpO2 Sensor 102 H 103 H 103 H Respiratory Rate 20 26 H 25 H Respiratory Effort / Characteristics Respiratory Depth Respiratory Pattern Blood Pressure 122/61 86/66 L 70/52 L Blood Pressure Mean 81 72 58 Pulse Oximetry 98 100 99 Oxygen Delivery Method Nasal Cannula Nasal Cannula Nasal Cannula Oxygen Flow Rate 4 4 4 11/03/18 00:52 11/03/18 00:55 Temperature 36.4 C L Temperature Source Oral Sepsis Recent Fever Within 48 Hours Sepsis New/Unexplained Change in Mental Status Sepsis Action Taken by Nursing Pulse Rate 101 H 100 H Pulse Rate from SpO2 Sensor 102 H Respiratory Rate 23 21 Respiratory Effort / Characteristics Respiratory Depth Respiratory Pattern Blood Pressure 110/54 L 110/54 L Blood Pressure Mean 72 72 Pulse Oximetry 100 100 Oxygen Delivery Method Nasal Cannula Oxygen Flow Rate 4 4 GENERAL: The patient is awake and alert. He is very anxious appearing and appears to be in moderate distress. EYES: The conjunctivae are pale. The pupils are round and reactive. EARS, NOSE, MOUTH AND THROAT: The nose is without any evidence of any deformity. Mucous membranes are dry NECK: The neck is nontender and supple. RESPIRATORY: Normal respiratory effort is noted there is no evidence of wheezing rhonchi or rales CARDIOVASCULAR: Tachycardic rate with regular rhythm was noted. There is no definite murmur. GASTROINTESTINAL: The abdomen is soft. Abdomen is nontender. Rectal exam revealed gross blood. MUSCULOSKELETAL/EXTREMITIES: There is an immobilizer in the right lower extremity consistent with patient's recent postoperative state. SKIN: Pedal edema was noted bilaterally right greater than left. NEUROLOGIC: Patient is awake to verbal commands and oriented to person place and situation. Course 2100: Past medical records reviewed. The patient was evaluated in room B5. A complete history and physical exam was performed. 0010: Discussed the patient's case with Dr. Rockwell, [facility] Hospitalist. The patient will be evaluated by him for further management. Administered Medications Pantoprazole Sodium 40 mg/ (Dextrose) 100 mls @ 20 mls/hr IV Q5H LES Stop: 12/03/18 01:59 Last Admin: 11/03/18 18:08 Dose: 20 mls/hr Documented by: [id number] Infusion: 11/03/18 17:28 Dose: 20 mls/hr Documented by: [id number] Admin: 11/03/18 12:28 Dose: 20 mls/hr Documented by: [id number] Infusion: 11/03/18 12:28 Dose: 20 mls/hr Documented by: [id number] Admin: 11/03/18 07:45 Dose: 20 mls/hr Documented by: [id number] Infusion: 11/03/18 07:45 Dose: 20 mls/hr Documented by: [id number] Admin: 11/03/18 02:50 Dose: 20 mls/hr Documented by: [id number] Parenteral Electrolytes (Normosol-R) 1,000 mls @ 125 mls/hr IV .Q8H LES Stop: 12/03/18 08:29 Last Admin: 11/03/18 08:54 Dose: 125 mls/hr Documented by: [id number] Discontinued Medications Fentanyl Citrate (Fentanyl Citrate) Confirm Administered Dose 100 mcg .ROUTE .STK-MED ONE Stop: 11/03/18 17:33 Last Increment: 11/03/18 18:04 Dose: 87.5 mcg Documented by: [id number] Sodium Chloride (Nss) 500 mls @ 999 mls/hr IV .Q31M LES Stop: 11/02/18 23:30 Last Infusion: 11/03/18 00:27 Dose: 0 mls/hr Documented by: [id number] Admin: 11/02/18 23:42 Dose: 999 mls/hr Documented by: [id number] Sodium Chloride (Nss 1000ml) 500 mls @ 999 mls/hr IV .Q31M ONE Stop: 11/02/18 23:48 Last Infusion: 11/03/18 01:13 Dose: 0 mls/hr Documented by: [id number] Admin: 11/03/18 00:07 Dose: 999 mls/hr Documented by: [id number] Piperacillin Sod/Tazobactam Sod (Zosyn) 4.5 gm in 120 mls @ 240 mls/hr IV NOW ONE Stop: 11/03/18 00:51 Last Infusion: 11/03/18 02:52 Dose: 0 mls/hr Documented by: [id number] Admin: 11/03/18 01:19 Dose: 240 mls/hr Documented by: [id number] Pantoprazole Sodium 80 mg/ (Dextrose) 120 mls @ 480 mls/hr IV NOW STA Stop: 11/03/18 02:01 Last Infusion: 11/03/18 02:49 Dose: 0 mls/hr Documented by: [id number] Admin: 11/03/18 02:25 Dose: 480 mls/hr Documented by: [id number] Piperacillin Sod/Tazobactam (Sod 3.375 gm/ Dextrose) 115 mls @ 28.75 mls/hr IV Q8H LES; Protocol Stop: 11/13/18 05:59 Last Infusion: 11/03/18 10:24 Dose: 0 mls/hr Documented by: [id number] Infusion: 11/03/18 09:17 Dose: 0 mls/hr Documented by: [id number] Admin: 11/03/18 05:35 Dose: 28.8 mls/hr Documented by: [id number] Calcium Gluconate 1,000 mg/ (Sodium Chloride) 60 mls @ 240 mls/hr IV NOW STA Stop: 11/03/18 05:07 Last Infusion: 11/03/18 06:10 Dose: 0 mls/hr Documented by: [id number] Admin: 11/03/18 05:26 Dose: 240 mls/hr Documented by: [id number] Calcium Gluconate 1,000 mg/ (Sodium Chloride) 60 mls @ 240 mls/hr IV NOW [facility] Stop: 11/03/18 07:19 Last Infusion: 11/03/18 07:46 Dose: 0 mls/hr Documented by: [id number] Admin: 11/03/18 07:31 Dose: 240 mls/hr Documented by: [id number] Sodium Chloride (Nss 1000ml) 1,000 mls @ 125 mls/hr IV .Q8H [facility] Stop: 12/03/18 08:14 Last Admin: 11/03/18 08:30 Dose: Not Given Documented by: [id number] Magnesium Sulfate/Dextrose (Magnesium Sulfate / D5w) 1 gm in 100 mls @ 100 mls/hr IV Q1H [facility] Stop: 11/03/18 10:59 Last Infusion: 11/03/18 11:15 Dose: 0 mls/hr Documented by: [id number] Admin: 11/03/18 10:14 Dose: 100 mls/hr Documented by: [id number] Infusion: 11/03/18 09:54 Dose: 100 mls/hr Documented by: [id number] Admin: 11/03/18 08:54 Dose: 100 mls/hr Documented by: [id number] Insulin Human Regular 250 (units/ Sodium Chloride) 250 mls @ 0 mls/hr IV .Q0M [facility]; Protocol Stop: 12/03/18 08:59 Last Titration: 11/03/18 12:34 Dose: 0 units/hr, 0 mls/hr Documented by: [id number] Cosigned by: [id number] Titration: 11/03/18 11:39 Dose: 2.3 units/hr, 2.3 mls/hr Documented by: [id number] Cosigned by: [id number] Titration: 11/03/18 10:11 Dose: 2.3 units/hr, 2.3 mls/hr Documented by: [id number] Cosigned by: [id number] Admin: 11/03/18 09:10 Dose: 2.3 units/hr, 2.3 mls/hr Documented by: [id number] Cosigned by: [id number] Phytonadione 2.5 mg/ Sodium (Chloride) 50.25 mls @ 100.5 mls/hr IV ONE ONE Stop: 11/03/18 09:14 Last Infusion: 11/03/18 09:23 Dose: 0 mls/hr Documented by: [id number] Admin: 11/03/18 08:53 Dose: 100.5 mls/hr Documented by: [id number] Insulin Aspart (Novolog Flexpen) 0 units SC ACHS LES Stop: 12/03/18 11:29 Last Admin: 11/03/18 18:07 Dose: Not Given Documented by: [id number] Cosigned by: [id number] Admin: 11/03/18 11:35 Dose: Not Given Documented by: [id number] Cosigned by: [id number] Miscellaneous (Insulin Protocol Goal Range) 1 ea N/A ONE ONE Stop: 11/03/18 08:34 Last Admin: 11/03/18 11:40 Dose: Not Given Documented by: [id number] Miscellaneous (Insulin Protocol Moderate Stress Level) 1 ea N/A ONE ONE Stop: 11/03/18 08:34 Last Admin: 11/03/18 11:40 Dose: Not Given Documented by: [id number] Ondansetron HCl (Zofran) 4 mg IV NOW STA Stop: 11/02/18 23:59 Last Admin: 11/03/18 00:01 Dose: 4 mg Documented by: [id number] Ondansetron HCl (Zofran) Confirm Administered Dose 4 mg .ROUTE .STK-MED ONE Stop: 11/03/18 02:12 Last Admin: 11/03/18 02:15 Dose: 4 mg Documented by: [id number] Ondansetron HCl (Zofran) Confirm Administered Dose 4 mg .ROUTE .STK-MED ONE Stop: 11/03/18 17:52 Last Admin: 11/03/18 18:03 Dose: 4 mg Documented by: [id number] Propofol (Diprivan) Confirm Administered Dose 1,000 mg IV .STK-MED ONE Stop: 11/03/18 16:28 Last Admin: 11/03/18 18:03 Dose: 80 mg Documented by: [id number] Cosigned by: [id number] Medical Decision Making Differential Diagnosis Differential diagnosis: Etiologies such as diverticulosis, AVM, coagulopathy, colitis, inflammatory bowel disease, malignancy, Rosamaria-Jackson tear, esophagitis, peptic ulcer disease, variceal bleed, gastritis, epistaxis, fissure, hemorrhoids, aswell as others were entertained. Medical Records Attestation: I reviewed the patient's medical records. Home Medications Current Medication List: was personally reviewed by me Laboratory Data Attestation: I reviewed the patient's lab results. Result diagrams: 11/03/18 19:47 11/03/18 03:33 Lab Results 11/02/18 11/02/18 11/02/18 Range/Units 22:57 22:57 22:57 WBC 24.70 H (4.8-10.8) K/uL RBC 2.22 L (4.7-6.1) M/uL Hgb 6.4 L* (14.0-18.0) g/dL POC Hgb (14.0-18.0) g/dl Hct 20.5 L* (42-52) % POC Hct (42-52) % MCV 92.3 (80-100) fL MCH 28.8 (25-34) pg MCHC 31.2 L (32-36) g/dL RDW Std Deviation 51.0 H (36.4-46.3) fL RDW Coeff of Dayo 15.4 H (11.5-14.5) % Plt Count 502 H (130-400) K/uL MPV 8.5 (7.4-10.4) fL Immature Gran % (Auto) 1.0 % Neut % (Auto) 88.4 % Lymph % (Auto) 7.9 % Edgar % (Auto) 2.5 % Eos % (Auto) 0.1 % Baso % (Auto) 0.1 % Immature Gran # (Auto) 0.24 H (0.00-0.02) K/uL Neut # (Auto) 21.85 H (1.4-6.5) K/uL Lymph # (Auto) 1.94 (1.2-3.4) K/uL Edgar # (Auto) 0.62 H (0.11-0.59) K/uL Eos # (Auto) 0.03 (0-0.5) K/uL Baso # (Auto) 0.02 (0-0.2) K/uL Polychromasia 1+ Ovalocytes 1+ Echinocytes 1+ PT 23.9 H (9.0-12.0) Seconds INR 2.5 H (0.9-1.1) APTT 32.5 H (21.0-31.0) Seconds PTT Ratio 1.2 POC Sodium (135-144) mEq/L Sodium 147 H (136-145) mmol/L POC Potassium (3.3-5.0) mEq/L Potassium 4.6 (3.5-5.1) mmol/L POC Chloride (101-112) mEq/L Chloride 113 H (98-107) mmol/L Carbon Dioxide 16 L (21-32) mmol/L POC Total CO2 (24-31) mEq/l Anion Gap 18.0 H (3-11) POC Anion Gap (16-25) mmol/L POC BUN (7-18) mg/dl BUN 66 H (7-18) mg/dl Creatinine 1.62 H (0.6-1.4) mg/dl POC Creatinine (0.6-1.3) mg/dl Est Cr Clr Drug Dosing 43.6 ml/min Est GFR ( Amer) 45.8 Est GFR (Non-Af Amer) 39.5 BUN/Creatinine Ratio 40.5 H (10-20) Glucose 245 H (70-99) mg/dl POC Glucose (other) (70-99) mg/dl Calcium 8.0 L (8.5-10.1) mg/dl POC Ioniz Calcium Asael (1.12-1.32) mmol/l Total Bilirubin 0.3 (0.2-1) mg/dl AST 22 (15-37) U/L ALT 38 (12-78) U/L Alkaline Phosphatase 87 (45-117) U/L Troponin I 0.037 (0-0.045) ng/ml Total Protein 5.8 L (6.4-8.2) gm/dl Albumin 2.6 L (3.4-5.0) gm/dl Globulin 3.2 (2.5-4.0) gm/dl Albumin/Globulin Ratio 0.8 L (0.9-2) Lipase 355 (73-393) U/L Blood Type Antibody Screen Crossmatch 11/02/18 11/02/18 Range/Units 22:57 23:07 WBC (4.8-10.8) K/uL RBC (4.7-6.1) M/uL Hgb (14.0-18.0) g/dL POC Hgb 6.1 L* (14.0-18.0) g/dl Hct (42-52) % POC Hct 18 L* (42-52) % MCV (80-100) fL MCH (25-34) pg MCHC (32-36) g/dL RDW Std Deviation (36.4-46.3) fL RDW Coeff of Dayo (11.5-14.5) % Plt Count (130-400) K/uL MPV (7.4-10.4) fL Immature Gran % (Auto) % Neut % (Auto) % Lymph % (Auto) % Edgar % (Auto) % Eos % (Auto) % Baso % (Auto) % Immature Gran # (Auto) (0.00-0.02) K/uL Neut # (Auto) (1.4-6.5) K/uL Lymph # (Auto) (1.2-3.4) K/uL Edgar # (Auto) (0.11-0.59) K/uL Eos # (Auto) (0-0.5) K/uL Baso # (Auto) (0-0.2) K/uL Polychromasia Ovalocytes Echinocytes PT (9.0-12.0) Seconds INR (0.9-1.1) APTT (21.0-31.0) Seconds PTT Ratio POC Sodium 141 (135-144) mEq/L Sodium (136-145) mmol/L POC Potassium 4.7 (3.3-5.0) mEq/L Potassium (3.5-5.1) mmol/L POC Chloride 113 H (101-112) mEq/L Chloride (98-107) mmol/L Carbon Dioxide (21-32) mmol/L POC Total CO2 15 L (24-31) mEq/l Anion Gap (3-11) POC Anion Gap 19.0 (16-25) mmol/L POC BUN 71 H (7-18) mg/dl BUN (7-18) mg/dl Creatinine (0.6-1.4) mg/dl POC Creatinine 1.4 H (0.6-1.3) mg/dl Est Cr Clr Drug Dosing ml/min Est GFR ( Amer) Est GFR (Non-Af Amer) BUN/Creatinine Ratio (10-20) Glucose (70-99) mg/dl POC Glucose (other) 245 H (70-99) mg/dl Calcium (8.5-10.1) mg/dl POC Ioniz Calcium Asael 1.02 L (1.12-1.32) mmol/l Total Bilirubin (0.2-1) mg/dl AST (15-37) U/L ALT (12-78) U/L Alkaline Phosphatase (45-117) U/L Troponin I (0-0.045) ng/ml Total Protein (6.4-8.2) gm/dl Albumin (3.4-5.0) gm/dl Globulin (2.5-4.0) gm/dl Albumin/Globulin Ratio (0.9-2) Lipase (73-393) U/L Blood Type A Negative Antibody Screen NEGATIVE Crossmatch See Detail Imaging Data Attestation: I personally reviewed and interpreted this imaging study as follows: My Impression: Radiology results as stated below per my review and interpretation: CHEST XRAY Cardiomegaly. Small right pleural effusion is suggested. No definite infiltrate. No acute disease. Blunting of the right costophrenic angle. No change when compared to 05/22/15 ECG Data Attestation: I personally reviewed and interpreted this ECG as follows: Indication: syncope Rate (beats per minute): 98 Rhythm: sinus rhythm Findings: + ST depression (Lateral, inferior ); no ectopy Comparison ECG Date: from (09/23/18) Change: no significant change Blood Pressure Blood Pressure Findings: Low blood pressure Blood Pressure Disposition: further management by hospitalist [facility] Narrative The patient is an 78-year-old male who presented to the emergency department for an evaluation of weakness and dizziness. The patient was pale and appeared very unstable. Rectal exam revealed gross blood per rectum and maroon stool. The patient was immediately typed and crossed and started on a blood transfusion. The patient was also given fresh frozen plasma. He was also given a small fluid bolus. I discussed the patient's laboratory and radiographic studies with him. I also discussed his case with the on-call [facility] hospitalist group. They have agreed to evaluate the patient in the emergency department for further management disposition. The patient was reevaluated multiple times. His condition slowly improved. Impression & Plan Near syncope, Dizziness, Lower gastrointestinal bleeding, Anemia, Adequate anticoagulation on anticoagulant therapy Critical Care Time Critical Care Time: Yes Total Critical Care Time: 65 I have personally spent greater than 65 minutes of critical care time in the direct management of this patient. This includes bedside care, interpretation o f diagnostic studies, and testing, discussion with consultants, patient, and family members, and other required patient management activities. This 65 minutes is in excess of all separately billable procedures. Discharge Plan Visit Data *Final* Discharge Date/Time: 11/03/18 01:35 Chief Complaint: Syncope Stated Complaint: FALL, HYPOTENSION, SYNCOPE ED Provider: Binu Olivera Discharge Problem: Near syncope, Dizziness, Lower gastrointestinal bleeding, Anemia, Adequate anticoagulation on anticoagulant therapy Patient Disposition: Admitted As Inpatient Discharge Instructions Interventions: ED Discharge Assessment Last Done: 11/03/18 01:35 Discharge Problem: Anemia Qualifiers: Anemia type: unspecified type Qualified Code(s): D64.9 - Anemia, unspecified The scribe's documentation has been prepared under my direction and personally reviewed by me in its entirety. I confirm that the note above accurately reflects all work, treatment, procedures, and medical decision making performed by me.
[2018-11-02 23:34] LABS: INR 2.5 (0.9-1.1); Partial Thromboplastin Ratio 1.2; Partial Thromboplastin Time 32.5 Seconds (21.0-31.0); Prothrombin Time 23.9 Seconds (9.0-12.0)
[2018-11-02 23:42] LABS: Hematocrit (blood only) 20.5 % (42-52); Hemoglobin 6.4 g/dL (14.0-18.0); Mean Corpuscular Hemoglobin 28.8 pg (25-34); Mean Corpuscular Hgb Conc 31.2 g/dL (32-36); Mean Corpuscular Volume 92.3 fL (80-100); Mean Platelet Volume 8.5 fL (7.4-10.4); Platelet Count 502 K/uL (130-400); RDW Coefficient of Variation 15.4 % (11.5-14.5); Red Blood Count 2.22 M/uL (4.7-6.1)
[2018-11-02 23:44] LABS: Albumin Level 2.6 gm/dl (3.4-5.0); BUN Creatinine Ratio 40.5 (10-20); Creatinine Clr Calc Pharmacy 43.6 ml/min; Est GFR (African American) 45.8; Est GFR (Non-African American) 39.5; Potassium 4.6 mmol/L (3.5-5.1)
[2018-11-02 23:49] LABS: Albumin Globulin Ratio 0.8 (0.9-2); Basophils # (auto) 0.02 K/uL (0-0.2); Basophils % (auto) 0.1 %; Bilirubin,Total 0.3 mg/dl (0.2-1); Echinocytes 1+; Eosinophils # (auto) 0.03 K/uL (0-0.5); Eosinophils % (auto) 0.1 %; Globulin 3.2 gm/dl (2.5-4.0); Immature Granulocytes # (auto) 0.24 K/uL (0.00-0.02); Lymphocytes # (auto) 1.94 K/uL (1.2-3.4); Lymphocytes % (auto) 7.9 %; Monocytes # (auto) 0.62 K/uL (0.11-0.59); Monocytes % (auto) 2.5 %; Neutrophils # (auto) 21.85 K/uL (1.4-6.5); Neutrophils % (auto) 88.4 %; Ovalocytes 1+; Polychromasia 1+; Total Protein 5.8 gm/dl (6.4-8.2); Troponin I 0.037 ng/ml (0-0.045)
[2018-11-02] MEDS ORDERED: ONDANSETRON INJ 2 MG/ML 2 ML VIAL IV STA (23:58)
[2018-11-03] MEDS ORDERED: PIPERACILL/TAZOBAC CONSULT ACTIVE PRN (00:22)
[2018-11-03] MEDS ORDERED: PIPERACILLIN/TAZOBACTAM 4.5 GM/120 ML BAG IV ONE (00:22)
--- NOTE | 2018-11-03 01:01 | History & Physical Report ---
Date of Service November 03, 2018 Assessment & Plan (1) Syncope: Mr. Carlson is an 78 year old male with a past medical history of type 2 diabetes mellitus, hypertension, asthma, recent surgery on 10/11 (a right leg quadriceps repair) who presents to the emergency department from [facility] after a syncopal episode. In addition, he has had a 1 day history of abdominal pain, and bloody diarrhea. On presentation to the ED, he was found to be confused, tachycardic, hypotensive and mottled. ED course: 1 L normal saline bolus, 4.5 g IV Zosyn, 4 mg IV Zofran, 2 units packed red blood cells Sepsis -Patient meets criteria for sepsis with tachycardia, tachypnea, elevated white cell count, with unconfirmed source at this time - presumed to be GI -bcx ordered x 2 and pending -UA ordered -CXR w/out evidence of infection -pt significantly hypotensive on arrival, with BPs as low as 70s/40s - receiving NS boluses -received a dose of IV Zosyn in the ER - further abx per ICU Lower GI Bleeding -pt with several bloody BMs whilst in ED, no hx of prior GI bleeding. Past colonoscopies normal. -CT abdomen & pelvis ordered -INR 2.5 on admission (secondary to warfarin usage) - 2 units FFP ordered & transfused -hold warfarin - pt does not know why he is on it. No record in notes - potentially for DVT prophylaxis given recent surgery? -GI consulted, thank you for assistance Acute Blood Loss Anemia -secondary to lower GI bleed -Hgb 6.4 on admission, a significant drop from 9.8 on 10/20 -transfused 2 units of prbcs -trend CBC Acute kidney injury -Creatinine elevated at 1.62, baseline appears to be approx 1 -Suspect prerenal etiology, continue IVF -trend BMP Hypertension -hold home antihypertensives Diabetes Mellitus -hold home metformin and glipizide -BSG and ISS per ICU protocol Code status: FULL DVT Prophylaxis: contraindicated in the setting of a GI bleed Disposition: admitted to ICU (2) Lower gastrointestinal bleeding: (3) Anemia: (4) Sepsis: (5) Hypertension: (6) Diabetes mellitus: History of Present Illness Chief Complaint: Lower GI Bleed Primary Care Provider: Glynn Brennan Mr. Carlson is an 78 year old male with a past medical history of type 2 diabetes mellitus, hypertension, asthma, recent surgery on 10/11 (a right leg quadriceps repair) who presents to the emergency department from [facility] after a syncopal episode. Since yesterday, he reports he has not been feeling well. He has been nauseous, with an episode of vomiting. He endorses abdominal pain that began today, and has been having several bloody bowel movements. He states that his syncopal episode occurred while he was on the commode. He states his abdominal pain was severe, and is now down to a 6/10. He denies fever, chills, chest pain, cough, or shortness of breath. He reports that he is on Coumadin, but is unsure why. He states that he does not have a history of atrial fibrillation or DVT/PE. He reports that he does not have a history of blood in his bowel movements, and states that all of his prior colonoscopies have been normal. He does state his last colonoscopy was 10 years ago. Past medical history: Hypertension, type 2 diabetes mellitus, asthma, osteoarthritis Past surgical history: Appendectomy, foot surgery, tonsillectomy, left total knee replacement, right leg quadriceps repair Medications: Aspirin, ferrous sulfate, finasteride, glipizide, lisinoprilhydrochlorothiazide, metformin, Percocet, warfarin Allergies: No known drug allergies Social history: Currently living at [facility]. No tobacco use, occasional alcohol use. Allergies Allergy/AdvReac Type Severity Reaction Status Date / Time No Known Allergies Allergy Unverified 11/02/18 23:57 Home Medications Home Medications Medication Instructions Recorded Confirmed Type aspirin [Aspir-81] 162 mg PO QAM 09/21/18 11/02/18 History finasteride [Proscar] 5 mg PO QAM 09/21/18 11/02/18 History glipizide 20 mg PO QAM 09/21/18 11/02/18 History metformin 1,000 mg PO QAM 09/21/18 11/02/18 History oxycodone-acetaminophen [Percocet] 2 tab PO Q4H PRN #30 tab MDD 3GM 10/20/18 11/02/18 Rx APAP acetaminophen [Tylenol] 650 mg PO Q4H PRN MDD 3G 11/02/18 11/02/18 History ferrous sulfate 325 mg PO TID 11/02/18 11/02/18 History ondansetron HCl [Zofran] 4 mg PO Q6H PRN 11/02/18 11/02/18 History polyethylene glycol 3350 [Miralax] 17 g PO QAM 11/02/18 11/02/18 History warfarin 2 mg PO HS 11/02/18 11/02/18 History lisinopril-hydrochlorothiazide 1 tab PO QAM 11/03/18 11/03/18 History sennosides 8.6 mg PO QAM 11/03/18 11/03/18 History Past Med/Surg History Medical History Diabetes History of asthma Hypertension Mobility impaired REASON FOR UPCOMING SURGERY Surgical History History of appendectomy History of colonoscopy History of tonsillectomy History of total left knee replacement (TKR) Hx of foot surgery BOTH Family History Other Family history non-contributory Social History Preferred Language: Upper Sorbian Communication Ability: Effective Molded Goods Operator Required: No Beliefs That Will Affect Care: Evangelical Evangelical Beliefs: NONDENOMINATIONAL Current Living Situation: Family Feels Safe at Home: Yes Smoking Status: Never smoker Hx Alcohol Use: Yes Alcohol type: beer and hard liquor Hx Substance Use: No Review of Systems Constitutional: + fatigue and + weakness; no fever and no chills Respiratory: no cough, no dyspnea and no wheezing Cardiovascular: + lightheadedness and + syncope; no chest pain, no palpitations, no edema and no calf pain Gastrointestinal: + abdominal pain, + nausea, + vomiting, + change in bowel habits, + diarrhea/loose stools and + blood in stools Genitourinary: no dysuria, no difficulty urinating, no urinary frequency and no urinary incontinence Integumentary: no rash Physical Exam Constitutional: WD/WN, vitals as above pale, mottled (noted throughout abdomen and b/l legs) Eyes: PERRL, conjunctivae normal, anicteric sclerae ENMT: external ear and nose normal, oropharynx normal Respiratory: normal respiratory effort, lungs clear to auscultation Cardiovascular: Rate/Rhythm: regular rhythm and + tachycardic Extremities: no calf tenderness and no pedal edema Gastrointestinal (Abdomen): Percussion/Palpation: + abdomen tender (tender throughout abdomen, worst in LLQ) and abdomen soft; no guarding and abdomen not rigid Musculoskeletal: right leg immobilized Skin: + mottling Neurologic: patellar DTR's 2+ bilat, sensation intact and PERRL, EOMI, accommodation nl, no face palsy, no dysarthria power 5/5 in UE and LE Psychiatric: A+Ox3, euthymic affect Genitourinary: no flank tenderness Results & Data Vital Signs (Past 12 Hours) Vital Signs Temp Pulse Resp BP Pulse Ox 11/03/18 00:52 36.4 C L 101 H 23 110/54 L 100 11/03/18 00:37 36.4 C L 102 H 24 110/59 L 100 11/03/18 00:19 36.5 C 97 H 22 87/44 L 96 11/02/18 22:45 36.5 C 104 H 29 H 113/53 L 96 Code Status & VTE Plan VTE Prophylaxis Plan VTE Prophylaxis will be ordered: No Supervising Physician Co-Signing Physician Notes Patient was seen and examined by me personally. I reviewed the chart, the orders and discussed the case in detail with Dr. Tom Dey MD. . I read this H&P and agree with its contents to entirety. PG Care Time/CCT Total # of Minutes Spent Total Time Spent with Patient: Total time spent is greater than 50% in coordination of care (as documented) at patient's floor/unit and/or counseling patient: Resident Activity Tracking Resident Involvement: Resident Care Provided Care Provided: Adult Hospital Medicine (1) Anemia Anemia type: unspecified type Qualified Code(s): D64.9 - Anemia, unspecified
[2018-11-03] MEDS ORDERED: ICU PROTOCOL FOR HYPERGLYCEMIA PRN (01:44)
[2018-11-03] MEDS ORDERED: PANTOprazole 80 MG in DEXTROSE 5% 100 ML IV STA (01:47)
[2018-11-03] MEDS ORDERED: ONDANSETRON INJ 2 MG/ML 2 ML VIAL ONE ×2 (02:11→17:51)
[2018-11-03 02:48] LABS: Gastric Occult Blood Positive (Negative); pH Gastric Fluid 2
[2018-11-03] MEDS ORDERED: SODIUM CHLORIDE 0.9% 250 ML IV PRN ×2 (02:50→13:41)
[2018-11-03] MEDS: PANTOprazole 40 MG in DEXTROSE 5% 100 ML IV SCH ×5 (02:50→23:07)
--- NOTE | 2018-11-03 02:56 | Critical Care Consultation ---
Date of Consultation November 03, 2018 Assessment & Plan (1) Admitted to intensive care unit: Reason Critically Ill: 78-year-old male with symptomatic anemia in the setting of GI bleed requiring close hemodynamic monitoring and need for transfusion of multiple blood products. NEURO - * CAM ICU: NEGATIVE * Pain: Consider PRN IV dosing for RIGHT lower extremity pain in the setting of n.p.o. status. CARDIAC/VASCULAR - * Hypotension and tachycardia: * In the setting of profound anemia. * We will continue to trend troponins as we really expect troponin leaking in the setting of global ischemia. * EKG without concerning findings, thankfully. * Hold antihypertensives at this time. * Support with blood products. * Pressors if needed. * EKG: SR@98bmp. No ST/T-Wave changes. QTc 441ms. * Monitor on telemetry. RESPIRATORY - * No history of pulmonary disease. * Monitor closely for signs/symptoms of transfusion related pulmonary injuries. GI/NUTRITION - * GI bleed: * While initially presumed to be lower alone, patient did have gastric occult positive vomiting upon arrival in ICU. * Given his recent administration of Coumadin in the setting of chronic aspirin therapy, and concern for possible upper GI source at this time. * No reported zack red blood per rectum. * Received Protonix bolus followed by drip. * Appreciate GI recommendations. * Follow-up with CT of abdomen/pelvis. * N.p.o. status RENAL/LYTES - * BENEDICT: * Likely in the setting of poor perfusion with hypotension on arrival. * Continue to support with blood products as well as fluids. * IVF: NSS at 125mL/hr - * No concerns at this time. ENDO - * DMII * BSGs per unit protocol. ISS --> gtt per unit policy. HEME - * Acute blood loss anemia/Symptomatic anemia: * In the setting of GIB. * Received 2U PRBCs. * Received 2U FFP - patient currently on Coumadin for DVT prophylaxis for extended postoperative immobilization. * Repeat INR. * Transfused products as needed. * Will trend Lactate. ID - * ??Infectious diarrheal illness: * Presented w/ abd pain, hypotension, tachycardia. * Covered w/ Zosyn. * Stool cultures/C. diff ordered. LINES/IV ACCESS - * PIVs x3 DVT PROPHYLAXIS - * Hold in the setting of symptomatic anemia and GIB. * SCDs I have personally spent 60 minutes of critical care time in the direct management of this patient. This is a life/limb threatening event. This includes time spent evaluating patient, direct bedside care, chart review, placing orders, interpretation of diagnostic studies, discussion with consultants, patient, and family members, as well as other required patient management activities. This time is exclusive of all separately billable procedures, and teaching time and separate from and in addition to any other critical care service time. Thank you for allowing us to participate in the care of this patient. Please refer to my attending physician's documentation for any further recommendations. (2) GI bleeding: (3) Symptomatic anemia: (4) Adequate anticoagulation on anticoagulant therapy: (5) Hypertension: (6) Diabetes mellitus: (7) Anemia: (8) Near syncope: (9) Dizziness: Supervising Physician Co-Signing Physician Notes I have personally evaluated and examined this patient. I agree with assessment and plan of Vidya Reis PA-C. Care was transitioned to ut at 7 AM, I personally evaluated the patient he was without significant complaint beyond wanting to sleep as he was awoken several times through the night. He is unclear why he is on systemic anticoagulation, he does not ever heard of atrial fibrillation and denies having a blood clot. We are operating under the working diagnosis of acute blood loss anemia secondary to stress gastritis with gastropathy secondary to systemic anticoagulation. At this time he is required 1/3 unit of packed red blood cells, he is coagulopathy was corrected with FFP but that is transitory so we are giving 2.5 mg of IV vitamin K. I will be attempting to contact orthopedic surgery later to reevaluate his anticoagulation needs however at this time I believe anticoagulation risks outweigh the benefits of ongoing blood loss. I discussed with GI possibility of a EGD which would certainly be beneficial if the patient requires ongoing systemic anticoagulation. This time the patient is nonweightbearing and has a significant knee immobilizer of the right lower extremity. With regards to concerns for sepsis, certainly the patient can have loose stools from gastrointestinal bleeding, cultures are pending, the lactic acidosis resolved and again I believe the lactic acidosis was secondary to hypoperfusion due to acute blood loss anemia secondary to GI losses. At this time we will discontinue the Zosyn as I feel the clinical scenario is most consistent with rapid GI transit secondary to blood loss, the CT scan did not show significant colonic thickening suggestive of infectious diarrhea. Patient does carry the diagnosis of diabetes he is on oral agents, his repeat blood glucoses have been rather elevated and he has not received steroids. We will check a hemoglobin A1c and start an insulin infusion to better control his blood sugars as certainly he has risk factors for infections. A C. difficile was sent however he was not currently receiving therapy. Patient will be n.p.o. until his EGD. I have personally spent 30 minutes of critical care time in the direct management of this patient. This is a life/limb threatening event. This includes time spent evaluating patient, direct bedside care, chart review, placing orders, interpretation of diagnostic studies, discussion with consultants, patient, and/or family members regarding treatment decisions, as well as other required patient management activities. This time is exclusive of all separately billable procedures, and teaching time and separate from and in addition to any other critical care service time. 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 Surgery was uneventful. The patient was subsequently sent to a rehabilitation facility. He had been doing well up until this past week. He was complaining of waxing and waning abdominal pain as well as diarrheal illness. Over the last 72 to 48 hours, he reports that there is been darkening of his stool. Over the last 24 hours, however, he had worsening black stools and a near syncope episode which prompted transfer to the emergency department. Upon arrival, the patient was hypotensive and tachycardic. He received IV fluids. He was found to be moderately anemic with a hemoglobin of 6.4 and hematocrit of 20.5. He received 2 units PRBCs as well as 1 unit FFP prior to arrival in the ICU. The patient is on Coumadin as well as aspirin. Coumadin is for DVT prophylaxis status post surgical intervention. Aspirin is a daily medication. Upon arrival in the ICU, the patient is awake, alert, and oriented. Shortly after arrival, he complained of intense nausea followed by dark brown watery vomiting. He denies abdominal pain with this, but does report a sensation of epigastric discomfort. He denies any chest pain at this time. The patient felt much better after vomiting. At this point, he denies any headaches, dizziness, chest pain, palpitations, pleuritic pain, or abdominal pain. Allergies Allergy/AdvReac Type Severity Reaction Status Date / Time No Known Allergies Allergy Unverified 11/02/18 23:57 Home Medications Home Medications Medication Instructions Recorded Confirmed Type aspirin [Aspir-81] 162 mg PO QAM 09/21/18 11/02/18 History finasteride [Proscar] 5 mg PO QAM 09/21/18 11/02/18 History glipizide 20 mg PO QAM 09/21/18 11/02/18 History metformin 1,000 mg PO QAM 09/21/18 11/02/18 History oxycodone-acetaminophen [Percocet] 2 tab PO Q4H PRN #30 tab MDD 3GM 10/20/18 11/02/18 Rx APAP acetaminophen [Tylenol] 650 mg PO Q4H PRN MDD 3G 11/02/18 11/02/18 History ferrous sulfate 325 mg PO TID 11/02/18 11/02/18 History ondansetron HCl [Zofran] 4 mg PO Q6H PRN 11/02/18 11/02/18 History polyethylene glycol 3350 [Miralax] 17 g PO QAM 11/02/18 11/02/18 History warfarin 2 mg PO HS 11/02/18 11/02/18 History lisinopril-hydrochlorothiazide 1 tab PO QAM 11/03/18 11/03/18 History sennosides 8.6 mg PO QAM 11/03/18 11/03/18 History Patient History Medical History Diabetes History of asthma Hypertension Mobility impaired REASON FOR UPCOMING SURGERY Surgical History History of appendectomy History of colonoscopy History of tonsillectomy History of total left knee replacement (TKR) Hx of foot surgery BOTH Family History Other Family history non-contributory Social History Preferred Language: Urdu Communication Ability: Effective Network Engineer Administrator Required: No Beliefs That Will Affect Care: Episcopalian Episcopalian Beliefs: CAODAISM Current Living Situation: Family Feels Safe at Home: Yes Smoking Status: Never smoker Hx Alcohol Use: Yes Alcohol type: beer and hard liquor Hx Substance Use: No Review of Systems Review of Systems: A complete 10 point review of systems was reviewed with the patient with pertinent positives and negatives as per history of present illness. All else were negative. Physical Exam Physical Exam: VITAL SIGNS - Vital signs and nursing notes were reviewed. GENERAL - 78-year-old male appearing his stated age who is in no acute distress. Communicates well with provider and answers questions appropriately. SKIN - Pale appearing. HEAD - NC/AT. EYES - PERRL with EOMI bilaterally. Sclera anicteric. Palpebral conjunctiva pink and moist. Pale conjunctiva. EARS - No deformities of external structures noted on gross examination bilaterally. NOSE - Midline and without cyanosis. No epistaxis or purulent drainage noted. MOUTH/OROPHARYNX - Without perioral cyanosis. Buccal mucosa pink and moist and without leukoplakia. Tongue midline with equal elevation of palate bilaterally. NECK - Neck with FROM. Supple to palpation. No nuchal rigidity. LUNGS - Chest wall symmetric without accessory muscle use, intercostals retractions, or central cyanosis. Normal vesicular breath sounds CTA B/L. No wheezes, rales, or rhonchi appreciated. CARDIAC - RRR with S1/S2. No murmur, rubs, or gallops appreciated. ABDOMEN - Abdominal contour flat without pulsations or visible masses. Negative Musselshell's or Monten[place]ro Valdovinos's Signs. BS normoactive all four quadrants. Mild tenderness to palpation appreciated throughout the lower abdomen. No guarding. No Rebound Tenderness. Negative Vovsing's. Negative Cool's. No palpable masses, hepatosplenomegaly, or ascites noted. EXTREMITIES - Splint in place to the RIGHT lower extremity. No pretibial edema present. +3/5 radial and dorsalis pedis pulses palpated throughout. NEUROLOGIC - Cranial nerves II through XII grossly intact. Sensory intact to light touch throughout. PSYCH - A&Ox3 and cooperates fully with examiner. Pt is very pleasant and interacts well with examiner. Results & Data Vital Signs (Past 12 Hours) Vital Signs Temp Pulse Resp BP Pulse Ox 11/03/18 01:36 36.7 C 102 H 23 127/73 100 11/03/18 01:23 36.8 C 99 H 17 107/67 100 11/03/18 01:22 99 H 24 107/67 11/03/18 01:21 36.8 C 97 H 19 107/67 98 11/03/18 01:15 99 H 19 120/72 100 11/03/18 01:10 98 H 20 132/78 95 11/03/18 01:06 101 H 21 110/46 L 100 11/03/18 01:05 98 H 18 97 11/03/18 01:03 36.5 C 99 H 21 93/61 L 95 11/03/18 01:00 100 H 15 93/61 L 100 11/03/18 00:55 100 H 21 110/54 L 100 11/03/18 00:52 36.4 C L 101 H 23 110/54 L 100 11/03/18 00:50 103 H 25 H 70/52 L 99 11/03/18 00:46 102 H 26 H 86/66 L 100 11/03/18 00:40 102 H 20 122/61 98 11/03/18 00:37 36.4 C L 102 H 24 110/59 L 100 11/03/18 00:36 101 H 15 110/59 L 100 11/03/18 00:35 102 H 24 99 11/03/18 00:31 102 H 19 81/67 L 100 11/03/18 00:30 102 H 18 11/03/18 00:25 94 H 21 84/52 L 11/03/18 00:20 95 H 24 87/44 L 11/03/18 00:19 36.5 C 97 H 22 87/44 L 96 11/03/18 00:18 98 H 22 98/48 L 11/03/18 00:05 102 H 25 H 75/56 L 100 11/03/18 00:01 106 H 25 H 96 11/03/18 00:00 100 H 28 H 99 11/02/18 23:55 99 H 22 98 11/02/18 23:50 98 H 27 H 100 11/02/18 23:45 99 H 28 H 93/46 L 97 11/02/18 23:40 107 H 24 11/02/18 23:35 110 H 16 11/02/18 23:30 100 H 29 H 95 11/02/18 23:25 98 H 26 H 98 11/02/18 23:20 100 H 24 96 11/02/18 23:15 100 H 19 93 11/02/18 23:10 100 H 21 98 11/02/18 23:05 104 H 25 H 98 11/02/18 23:00 102 H 25 H 97 11/02/18 22:57 103 H 23 98 11/02/18 22:48 104 H 23 113/53 L 98 11/02/18 22:45 36.5 C 104 H 29 H 113/53 L 96 PG Care Time/CCT Total # of Minutes Spent Total Time Spent with Patient: Total time spent is greater than 50% in coordination of care (as documented) at patient's floor/unit and/or counseling patient: Critical Care Time: Yes Total Critical Care Time: 60 (1) Anemia Anemia type: unspecified type Qualified Code(s): D64.9 - Anemia, unspecified
--- NOTE | 2018-11-03 02:57 | Procedure Note ---
Procedure Note Date of Service November 03, 2018 Procedure: Second Cutter Indwelling Peripherally Inserted IV Catheter Placement Attending: Dr. Ruggiero APC: Sánchez Reis PA-C Indication: Need for IV Access, Poor Vascular Access Anesthesia: None Verbal consent was obtained from patient prior to performing the procedure. A time-out was completed verifying correct patient, procedure, site, positioning, and implant(s) or special equipment if applicable. Utilizing bedside ultrasound, vascularity of the RIGHT upper extremity was assessed. Vessel size was noted for appropriate catheter selection and skin was marked with gentle pressure. Patients RIGHT upper extremity was prepped and draped in the usual sterile fashion utilizing chlorhexidine. Ultrasound guidance was used to aid needle placement. A 20 g Endurance Catheter was introduced into the RIGHT Brachial vein under direct ultrasound guidance. Guide wire was easily deployed without resistance. Catheter was threaded over the guide wire without resistance and the entire apparatus was removed intact. Good venous blood return was noted in the catheter. The IV catheter was easily flushed with sterile saline flush. Sterile clave was attached to the end of the catheter and good blood return was again noted. Tourniquet was released. StatLock device and sterile dressing were applied. The patient tolerated the procedure well. Blood Loss: Minimal Complications: None Procedural Ultrasound Guidance: Procedure Date: 11/03/2018 Indication: Poor Vascular Access Attending: Dr. Ruggiero APC: Sánchez Reis PA-C Artery/Veins Identified: YES Access confirmed in Vein with ultrasound: YES Complications: NONE Patient tolerated procedure: WELL Coding
[2018-11-03 04:18] LABS: Hematocrit (blood only) 24.3 % (42-52); Mean Corpuscular Hemoglobin 28.7 pg (25-34); Mean Corpuscular Hgb Conc 32.9 g/dL (32-36); Mean Corpuscular Volume 87.1 fL (80-100); Mean Platelet Volume 8.2 fL (7.4-10.4); Platelet Count 268 K/uL (130-400); RDW Standard Deviation 54.1 fL (36.4-46.3); Red Blood Count 2.79 M/uL (4.7-6.1)
[2018-11-03 04:19] LABS: Basophils # (auto) 0.01 K/uL (0-0.2); Basophils % (auto) 0.1 %; Immature Granulocytes # (auto) 0.09 K/uL (0.00-0.02); Immature Granulocytes % (auto) 0.7 %; Lymphocytes # (auto) 1.11 K/uL (1.2-3.4); Lymphocytes % (auto) 8.1 %; Monocytes # (auto) 0.52 K/uL (0.11-0.59); Monocytes % (auto) 3.8 %; Neutrophils # (auto) 11.97 K/uL (1.4-6.5); Neutrophils % (auto) 87.3 %; Polychromasia 1+
[2018-11-03 04:32] LABS: Albumin Globulin Ratio 0.8 (0.9-2); Albumin Level 2.2 gm/dl (3.4-5.0); BUN Creatinine Ratio 38.9 (10-20); Bilirubin,Total 0.8 mg/dl (0.2-1); Calcium 6.5 mg/dl (8.5-10.1); Creatinine Clr Calc Pharmacy 44.2 ml/min; Est GFR (African American) 46.5; Est GFR (Non-African American) 40.1; Globulin 2.7 gm/dl (2.5-4.0); Magnesium 1.7 mg/dl (1.8-2.4); Phosphorus 3.6 mg/dl (2.5-4.9); Total Protein 4.9 gm/dl (6.4-8.2); Troponin I 0.067 ng/ml (0-0.045)
[2018-11-03] MEDS ORDERED: PNEUMOCOCCAL POLYSACCHARIDES 25 MCG/0.5 ML VIAL/SYR IM ONE (04:45)
[2018-11-03] MEDS ORDERED: PNEUMOCOCCAL ADMINISTRATION CHARGE ONE (04:45)
[2018-11-03] MEDS ORDERED: CALCIUM GLUCONATE 10% 1,000 MG in SODIUM CHLORIDE 0.9% 50 ML IV STA ×2 (04:53→07:05)
[2018-11-03] MEDS ORDERED: PIPERACILLIN/TAZOBACTAM 3.375 GM in DEXTROSE 5% 100 ML IV SCH (06:00)
[2018-11-03 06:24] LABS: Appearance Urine Turbid (Clear); Bacteria Urine Automated Negative (Negative); Bilirubin Urine Negative (Negative); Blood Urine Trace (Negative); Color Urine Yellow; Epithelial Cell Urine Auto >30 /lpf (0-5); Glucose Urine UA Negative (Negative); Ketones Urine Negative (Negative); Leukocyte Esterase Urine Negative (Negative); Nitrite Urine Negative (Negative); Protein Urine Trace (Negative); Specific Gravity Urine 1.027 (1.000-1.030); Urobilinogen Urine Negative (Negative)
[2018-11-03 06:34] LABS: Calcium Oxalate Crystals Urine Present (None Prsent); RBC Urine Automated 0-4 /hpf (0-4)
--- NOTE | 2018-11-03 06:51 | XRay Report ---
XR chest 1V portable CLINICAL HISTORY: weakness COMPARISON STUDY: 05/22/2015 FINDINGS: The heart is the upper limits of normal in size. There is no failure. There is no focal pul monary consolidation. There are no pleural effusions.[ IMPRESSION: No active disease in the chest. Electronically signed by: Chase Hernandez M.D. 11/03/2018 6:50 AM
--- NOTE | 2018-11-03 07:11 | CT Scan Report ---
CT OF THE ABDOMEN AND PELVIS WITHOUT CONTRAST CLINICAL HISTORY: Blood in stools, LLQ abdominal pain, septic. COMPARISON STUDY: No previous studies for comparison. TECHNIQUE: Axial images of the abdomen and pelvis were obtained without IV contrast. Images were revi ewed in the axial, sagittal, and coronal planes. Automated exposure control was utilized for the cathy dy. A dose lowering technique was utilized adhering to the principles of ALARA. FINDINGS: A small hiatal hernia is noted. There is a trace pericardial effusion. Stomach is mildly di stended. No pneumatosis, free air or portal venous gas is present. Evaluation of the abdomen and pelv is is suboptimal on this unenhanced exam. A lateral segment hepatic lesion measures water attenuation and favors a cyst. Unenhanced images of the spleen, adrenal glands and right kidney are unremarkable . There are several left-sided parapelvic cysts and a 4 mm calculus within lower pole of the left kid jose luis. There are no ureteral calculi. There is no hydronephrosis or hydroureter. No evidence for a breanna l obstruction. Colonic diverticulosis is noted without evidence for acute diverticulitis. No bowel wa ll thickening is identified on this unenhanced exam. There is no lymphadenopathy. No suspicious osseo us lesions are noted. IMPRESSION: 1. No bowel obstruction. No bowel wall thickening. Decreased sensitivity for detection mucosal lesion s given CT technique. 2. 4 mm left renal calculus. No ureteral calculi. 3. Small hiatal hernia. Mildly distended stomach. 4. Mild colonic diverticulosis without evidence for acute diverticulitis. Electronically signed by: Wai Alvares M.D. 11/03/2018 7:09 AM
[2018-11-03 07:46] LABS: Hematocrit (blood only) 22.1 % (42-52); Hemoglobin 7.2 g/dL (14.0-18.0)
[2018-11-03 08:02] LABS: INR 1.8 (0.9-1.1); Prothrombin Time 17.5 Seconds (9.0-12.0)
[2018-11-03] MEDS ORDERED: SODIUM CHLORIDE 0.9% 1000ML 1,000 ML IV SCH (08:15)
[2018-11-03] MEDS ORDERED: MODERATE STRESS LEVEL ONE (08:33)
[2018-11-03] MEDS ORDERED: INSULIN PROTOCOL GOAL RANGE ONE (08:33)
[2018-11-03] MEDS ORDERED: GLUCOSE 10 TABS/TUBE PO PRN ×2 (08:45→18:42)
[2018-11-03] MEDS ORDERED: PHYTONADIONE 2.5 MG in SODIUM CHLORIDE 0.9% 50 ML IV ONE (08:45)
[2018-11-03] MEDS ORDERED: CARBOHYDRATES FOR HYPOGLYCEMIA PO PRN ×2 (08:45→18:42)
[2018-11-03] MEDS ORDERED: DEXTROSE 50% 50 ML SYRINGE IV PRN ×2 (08:45→18:42)
[2018-11-03] MEDS ORDERED: GLUCOSE 40% GEL 15 GM TUBE PO PRN ×2 (08:45→18:42)
[2018-11-03] MEDS ORDERED: GLUCAGON FOR INJ 1 MG VIAL IM PRN (08:45)
[2018-11-03] MEDS: NORMOSOL-R 1,000 ML IV SCH ×2 (08:54→20:58)
[2018-11-03] MEDS: MAGNESIUM SULFATE / D5W 1 GM/100 ML BAG IV SCH ×2 (08:54→10:14)
[2018-11-03] MEDS ORDERED: INSULIN REGULAR 250 UNITS in SODIUM CHLORIDE 0.9% 247.5 ML IV SCH (09:00)
--- NOTE | 2018-11-03 09:14 | Gastrointestinal Consultation ---
Date of Consultation November 03, 2018 Assessment & Plan (1) GI bleeding: (2) Symptomatic anemia: Pt is a 78 y/o male admitted presented w syncopal episode and noted to have acute anemia, and symptoms of coffee ground emesis, dark stools. He was on Coumadin, INR 2.5 on admission. Overnight given PPI bolus and gtt, 2U PRBC transfusion - Keep NPO - Continue PPI gtt - Plan for EGD evaluation today by Dr. Rico - Monitor H/H and transfuse prn Supervising Physician Co-Signing Physician Notes I performed a history and physical examination of the patient, including specifically on physical exam - soft, nontender abdomen. I have discussed the patient's management with Duyen. Please refer to the nurse practitioner's note for the documented findings and plan of care. 78 years old male patient s/p recent orthopedic surgery, now admitted with drop in H/H and melena, concern for UGI bleed. Plan: EGD today. IV PPI. History of Present Illness Reason for Consultation: GI bleeding Requesting Physician: Dr. Brian Ruggiero Attending Physician: Dr. Jessica Rico History of Present Illness Pt is a 78 y/o male, resident of [facility] who presented yesterday after a syncopal episode. He is s/p R leg quadriceps repair. Was on Coumadin. He was noted to have syncopal episode while on commode. Had been c/o abd pain, n/v. Stools been dark and emesis w coffee grounds. He tested guaiac positive. Upon eval, noted to be anemic. Hgb 7, baseline 12. INR 2.5 on admission. BUN up 62. He was given PPI bolus and gtt, 2U PRBC transfusion. Unsure when his last colonoscopy or EGD. He denies tobaacco, ETOH abuse, regular uses of NSAIDs Allergies Allergy/AdvReac Type Severity Reaction Status Date / Time No Known Allergies Allergy Unverified 11/02/18 23:57 Home Medications Home Medications Medication Instructions Recorded Confirmed Type aspirin [Aspir-81] 162 mg PO QAM 09/21/18 11/02/18 History finasteride [Proscar] 5 mg PO QAM 09/21/18 11/02/18 History glipizide 20 mg PO QAM 09/21/18 11/02/18 History metformin 1,000 mg PO QAM 09/21/18 11/02/18 History oxycodone-acetaminophen [Percocet] 2 tab PO Q4H PRN #30 tab MDD 3GM 10/20/18 11/02/18 Rx APAP acetaminophen [Tylenol] 650 mg PO Q4H PRN MDD 3G 11/02/18 11/02/18 History ferrous sulfate 325 mg PO TID 11/02/18 11/02/18 History ondansetron HCl [Zofran] 4 mg PO Q6H PRN 11/02/18 11/02/18 History polyethylene glycol 3350 [Miralax] 17 g PO QAM 11/02/18 11/02/18 History warfarin 2 mg PO HS 11/02/18 11/02/18 History lisinopril-hydrochlorothiazide 1 tab PO QAM 11/03/18 11/03/18 History sennosides 8.6 mg PO QAM 11/03/18 11/03/18 History Patient History Medical History Diabetes History of asthma Hypertension Mobility impaired REASON FOR UPCOMING SURGERY Surgical History History of appendectomy History of colonoscopy History of tonsillectomy History of total left knee replacement (TKR) Hx of foot surgery BOTH Family History Other Family history non-contributory Social History Preferred Language: Faroese Communication Ability: Effective Plumbing Service Technician Required: No Beliefs That Will Affect Care: Sikhism Sikhism Beliefs: MUSLIM Current Living Situation: Family Feels Safe at Home: Yes Smoking Status: Never smoker Hx Alcohol Use: Yes Alcohol type: beer and hard liquor Hx Substance Use: No Review of Systems Review of Systems: All systems reviewed & are unremarkable except as noted in HPI & below Physical Exam Constitutional: WD/WN, vitals as above well groomed, cooperative and comfortable Eyes: PERRL, conjunctivae normal, anicteric sclerae ENMT: external ear and nose normal, oropharynx normal Respiratory: no respiratory distress and does not use accessory muscles Auscultation: + diminished lung sounds Cardiovascular: RRR, no murmur, no edema Gastrointestinal (Abdomen): Inspection/Auscultation: + hypoactive bowel sounds Percussion/Palpation: abdomen soft; abdomen nontender Skin: no rashes, warm and dry no jaundice Psychiatric: A+Ox3, euthymic affect Results & Data Vital Signs (Past 12 Hours) Vital Signs Temp Pulse Pulse Resp BP BP Pulse Ox 11/03/18 06:20 78 22 121/46 L 100 11/03/18 06:15 80 25 H 132/47 L 100 11/03/18 06:10 78 21 121/48 L 100 11/03/18 06:05 76 20 132/49 L 100 11/03/18 06:00 77 17 138/51 L 100 11/03/18 05:55 78 20 154/54 H 100 11/03/18 05:50 81 18 156/62 H 100 11/03/18 05:48 78 17 146/49 H 100 11/03/18 05:45 78 19 146/49 H 100 11/03/18 05:40 82 16 168/71 H 100 11/03/18 05:35 82 19 150/54 H 100 11/03/18 05:34 36.8 C 80 22 151/60 H 100 11/03/18 05:30 86 22 151/60 H 100 11/03/18 05:25 76 18 141/70 H 100 11/03/18 05:20 86 130/53 L 100 11/03/18 05:16 87 123/69 100 11/03/18 05:10 87 131/60 100 11/03/18 05:05 88 148/83 H 100 11/03/18 05:00 90 127/75 76 L 11/03/18 04:56 92 H 134/67 100 11/03/18 04:50 92 H 109/42 L 100 11/03/18 04:45 91 H 134/55 L 100 11/03/18 04:35 36.6 C 91 H 125/59 L 100 11/03/18 04:30 92 H 137/53 L 100 11/03/18 04:25 92 H 132/50 L 100 11/03/18 04:22 91 H 145/36 H 100 11/03/18 04:15 90 12 129/62 100 11/03/18 04:10 89 19 119/49 L 100 11/03/18 04:05 36.7 C 88 21 119/48 L 100 11/03/18 04:00 89 20 94/54 L 100 11/03/18 03:55 92 H 17 131/57 L 100 11/03/18 03:50 36.8 C 91 H 20 132/49 L 100 11/03/18 03:45 92 H 19 112/53 L 100 11/03/18 03:40 93 H 21 132/57 L 100 11/03/18 03:35 90 20 118/57 L 100 11/03/18 03:30 90 14 116/56 L 100 11/03/18 03:29 36.7 C 22 115/59 L 100 11/03/18 03:25 93 H 19 115/59 L 99 11/03/18 03:20 94 H 22 115/57 L 97 11/03/18 03:15 95 H 19 122/49 L 99 11/03/18 03:10 97 H 13 132/67 100 11/03/18 03:07 100 H 25 H 118/72 100 11/03/18 02:57 98 H 21 104/65 11/03/18 02:50 36.7 C 93 H 99 H 20 118/62 113/79 99 11/03/18 02:46 97 H 23 110/54 L 100 11/03/18 02:40 95 H 20 132/43 L 100 11/03/18 02:35 96 H 22 115/53 L 100 11/03/18 02:31 97 H 16 134/75 100 11/03/18 02:26 97 H 20 144/99 H 100 11/03/18 02:21 99 H 19 113/79 100 11/03/18 02:17 99 H 29 H 72/62 L 100 11/03/18 01:36 36.7 C 102 H 23 127/73 100 11/03/18 01:23 36.8 C 99 H 17 107/67 100 11/03/18 01:22 99 H 24 107/67 11/03/18 01:21 36.8 C 97 H 19 107/67 98 11/03/18 01:15 99 H 19 120/72 100 11/03/18 01:10 98 H 20 132/78 95 11/03/18 01:06 101 H 21 110/46 L 100 11/03/18 01:05 98 H 18 97 09/12/19 01:03 36.5 C 99 H 21 93/61 L 95 11/03/18 01:00 100 H 15 93/61 L 100 11/03/18 00:55 100 H 21 110/54 L 100 11/03/18 00:52 36.4 C L 101 H 23 110/54 L 100 11/03/18 00:50 103 H 25 H 70/52 L 99 11/03/18 00:46 102 H 26 H 86/66 L 100 11/03/18 00:40 102 H 20 122/61 98 11/03/18 00:37 36.4 C L 102 H 24 110/59 L 100 11/03/18 00:36 101 H 15 110/59 L 100 11/03/18 00:35 102 H 24 99 11/03/18 00:31 102 H 19 81/67 L 100 11/03/18 00:30 102 H 18 11/03/18 00:25 94 H 21 84/52 L 11/03/18 00:20 95 H 24 87/44 L 11/03/18 00:19 36.5 C 97 H 22 87/44 L 96 11/03/18 00:18 98 H 22 98/48 L 11/03/18 00:05 102 H 25 H 75/56 L 100 11/03/18 00:01 106 H 25 H 96 11/03/18 00:00 100 H 28 H 99 11/02/18 23:55 99 H 22 98 11/02/18 23:50 98 H 27 H 100 11/02/18 23:45 99 H 28 H 93/46 L 97 11/02/18 23:40 107 H 24 11/02/18 23:35 110 H 16 11/02/18 23:30 100 H 29 H 95 11/02/18 23:25 98 H 26 H 98 11/02/18 23:20 100 H 24 96 11/02/18 23:15 100 H 19 93 11/02/18 23:10 100 H 21 98 11/02/18 23:05 104 H 25 H 98 11/02/18 23:00 102 H 25 H 97 11/02/18 22:57 103 H 23 98 11/02/18 22:48 104 H 23 113/53 L 98 11/02/18 22:45 36.5 C 104 H 29 H 113/53 L 96
[2018-11-03 09:54] LABS: Estimated Average Glucose 120 mg/dl; Hemoglobin A1C 5.8 % (4.5-5.6)
--- NOTE | 2018-11-03 11:12 | Pre Anesthesia Assessment ---
Date of Service November 03, 2018 Pre Sedation Assessment Vital Signs Temp Pulse Pulse Resp BP BP Pulse Ox 11/03/18 06:20 78 22 121/46 L 100 11/03/18 06:15 80 25 H 132/47 L 100 11/03/18 06:10 78 21 121/48 L 100 11/03/18 06:05 76 20 132/49 L 100 11/03/18 06:00 77 17 138/51 L 100 11/03/18 05:55 78 20 154/54 H 100 11/03/18 05:50 81 18 156/62 H 100 11/03/18 05:48 78 17 146/49 H 100 11/03/18 05:45 78 19 146/49 H 100 11/03/18 05:40 82 16 168/71 H 100 11/03/18 05:35 82 19 150/54 H 100 11/03/18 05:34 36.8 C 80 22 151/60 H 100 11/03/18 05:30 86 22 151/60 H 100 11/03/18 05:25 76 18 141/70 H 100 11/03/18 05:20 86 130/53 L 100 11/03/18 05:16 87 123/69 100 11/03/18 05:10 87 131/60 100 11/03/18 05:05 88 148/83 H 100 11/03/18 05:00 90 127/75 76 L 11/03/18 04:56 92 H 134/67 100 11/03/18 04:50 92 H 109/42 L 100 11/03/18 04:45 91 H 134/55 L 100 11/03/18 04:35 36.6 C 91 H 125/59 L 100 11/03/18 04:30 92 H 137/53 L 100 11/03/18 04:25 92 H 132/50 L 100 11/03/18 04:22 91 H 145/36 H 100 11/03/18 04:15 90 12 129/62 100 11/03/18 04:10 89 19 119/49 L 100 11/03/18 04:05 36.7 C 88 21 119/48 L 100 11/03/18 04:00 89 20 94/54 L 100 11/03/18 03:55 92 H 17 131/57 L 100 11/03/18 03:50 36.8 C 91 H 20 132/49 L 100 11/03/18 03:45 92 H 19 112/53 L 100 11/03/18 03:40 93 H 21 132/57 L 100 11/03/18 03:35 90 20 118/57 L 100 11/03/18 03:30 90 14 116/56 L 100 11/03/18 03:29 36.7 C 22 115/59 L 100 11/03/18 03:25 93 H 19 115/59 L 99 11/03/18 03:20 94 H 22 115/57 L 97 11/03/18 03:15 95 H 19 122/49 L 99 11/03/18 03:10 97 H 13 132/67 100 11/03/18 03:07 100 H 25 H 118/72 100 11/03/18 02:57 98 H 21 104/65 11/03/18 02:50 36.7 C 93 H 99 H 20 118/62 113/79 99 11/03/18 02:46 97 H 23 110/54 L 100 11/03/18 02:40 95 H 20 132/43 L 100 11/03/18 02:35 96 H 22 115/53 L 100 11/03/18 02:31 97 H 16 134/75 100 11/03/18 02:26 97 H 20 144/99 H 100 11/03/18 02:21 99 H 19 113/79 100 11/03/18 02:17 99 H 29 H 72/62 L 100 11/03/18 01:36 36.7 C 102 H 23 127/73 100 11/03/18 01:23 36.8 C 99 H 17 107/67 100 11/03/18 01:22 99 H 24 107/67 11/03/18 01:21 36.8 C 97 H 19 107/67 98 11/03/18 01:15 99 H 19 120/72 100 11/03/18 01:10 98 H 20 132/78 95 11/03/18 01:06 101 H 21 110/46 L 100 11/03/18 01:05 98 H 18 97 11/03/18 01:03 36.5 C 99 H 21 93/61 L 95 11/03/18 01:00 100 H 15 93/61 L 100 11/03/18 00:55 100 H 21 110/54 L 100 11/03/18 00:52 36.4 C L 101 H 23 110/54 L 100 11/03/18 00:50 103 H 25 H 70/52 L 99 11/03/18 00:46 102 H 26 H 86/66 L 100 11/03/18 00:40 102 H 20 122/61 98 11/03/18 00:37 36.4 C L 102 H 24 110/59 L 100 11/03/18 00:36 101 H 15 110/59 L 100 11/03/18 00:35 102 H 24 99 11/03/18 00:31 102 H 19 81/67 L 100 11/03/18 00:30 102 H 18 11/03/18 00:25 94 H 21 84/52 L 11/03/18 00:20 95 H 24 87/44 L 11/03/18 00:19 36.5 C 97 H 22 87/44 L 96 11/03/18 00:18 98 H 22 98/48 L 11/03/18 00:05 102 H 25 H 75/56 L 100 11/03/18 00:01 106 H 25 H 96 11/03/18 00:00 100 H 28 H 99 11/02/18 23:55 99 H 22 98 11/02/18 23:50 98 H 27 H 100 11/02/18 23:45 99 H 28 H 93/46 L 97 11/02/18 23:40 107 H 24 11/02/18 23:35 110 H 16 11/02/18 23:30 100 H 29 H 95 11/02/18 23:25 98 H 26 H 98 11/02/18 23:20 100 H 24 96 11/02/18 23:15 100 H 19 93 11/02/18 23:10 100 H 21 98 11/02/18 23:05 104 H 25 H 98 11/02/18 23:00 102 H 25 H 97 11/02/18 22:57 103 H 23 98 11/02/18 22:48 104 H 23 113/53 L 98 11/02/18 22:45 36.5 C 104 H 29 H 113/53 L 96 Cardiovascular RRR, no murmur, no edema Respiratory normal respiratory effort, lungs clear to auscultation Pre-Sedation Airway Assessment Smoking Status: Never smoker Hx Sleep Apnea: No Hx Difficult Intubation: No Short, Thick Neck: No Thyromental Distance: > or= 3.5 Finger Breadths Oral Cavity: + Dental Abnormalities (partial in mouth) Mallampati Class: II ASA: ASA2 NPO Status Date of Last Intake of Fluids: 11/02/18 Date of Last Intake of Solid Food: 11/02/18 Procedure Planning Contraindications for Sedation: none Current Medications Reviewed: Yes Notes The planned sedation has been discussed with the patient. Informed Consent was obtained. I have identified the patient, determined the appropriateness of sedation and have assessed the patient immediately prior to the procedure. All medicine(s) and interventions are by my order. Plan moderate sedation during upper endoscopy.
[2018-11-03] MEDS: INSULIN ASPART 100 UNITS/ML 3 ML PEN SC SCH ×3 (11:35→20:58)
[2018-11-03 13:34] LABS: Hematocrit (blood only) 20.7 % (42-52); Hemoglobin 6.9 g/dL (14.0-18.0)
[2018-11-03] MEDS ORDERED: PROPOFOL IV EMULSION 10 MG/ML 100 ML VIAL IV ONE (16:27)
[2018-11-03] MEDS ORDERED: fentaNYL citrate 100 MCG/2 ML VIAL ONE (17:32)
[2018-11-03] MEDS ORDERED: fentaNYL citrate 100 MCG/2 ML VIAL IV STA (17:56)
--- NOTE | 2018-11-03 18:03 | Post Anesthesia Assessment ---
Date of Service November 03, 2018 Post Sedation Assessment Vital Signs Temp Pulse Pulse Resp BP BP Pulse Ox 11/03/18 17:29 81 16 126/85 98 11/03/18 16:23 36.7 C 67 17 154/55 H 96 11/03/18 15:21 36.7 C 67 17 154/55 H 96 11/03/18 14:36 36.7 C 73 22 129/60 100 11/03/18 14:13 81 25 H 143/55 H 92 11/03/18 06:20 78 22 121/46 L 100 11/03/18 06:15 80 25 H 132/47 L 100 11/03/18 06:10 78 21 121/48 L 100 11/03/18 06:05 76 20 132/49 L 100 11/03/18 06:00 77 17 138/51 L 100 11/03/18 05:55 78 20 154/54 H 100 11/03/18 05:50 81 18 156/62 H 100 11/03/18 05:48 78 17 146/49 H 100 11/03/18 05:45 78 19 146/49 H 100 11/03/18 05:40 82 16 168/71 H 100 11/03/18 05:35 82 19 150/54 H 100 11/03/18 05:34 36.8 C 80 22 151/60 H 100 11/03/18 05:30 86 22 151/60 H 100 11/03/18 05:25 76 18 141/70 H 100 11/03/18 05:20 86 130/53 L 100 11/03/18 05:16 87 123/69 100 11/03/18 05:10 87 131/60 100 11/03/18 05:05 88 148/83 H 100 11/03/18 05:00 90 127/75 76 L 11/03/18 04:56 92 H 134/67 100 11/03/18 04:50 92 H 109/42 L 100 11/03/18 04:45 91 H 134/55 L 100 11/03/18 04:35 36.6 C 91 H 125/59 L 100 11/03/18 04:30 92 H 137/53 L 100 11/03/18 04:25 92 H 132/50 L 100 11/03/18 04:22 91 H 145/36 H 100 11/03/18 04:15 90 12 129/62 100 11/03/18 04:10 89 19 119/49 L 100 11/03/18 04:05 36.7 C 88 21 119/48 L 100 11/03/18 04:00 89 20 94/54 L 100 11/03/18 03:55 92 H 17 131/57 L 100 11/03/18 03:50 36.8 C 91 H 20 132/49 L 100 11/03/18 03:45 92 H 19 112/53 L 100 11/03/18 03:40 93 H 21 132/57 L 100 11/03/18 03:35 90 20 118/57 L 100 11/03/18 03:30 90 14 116/56 L 100 11/03/18 03:29 36.7 C 22 115/59 L 100 11/03/18 03:25 93 H 19 115/59 L 99 11/03/18 03:20 94 H 22 115/57 L 97 11/03/18 03:15 95 H 19 122/49 L 99 11/03/18 03:10 97 H 13 132/67 100 11/03/18 03:07 100 H 25 H 118/72 100 11/03/18 02:57 98 H 21 104/65 11/03/18 02:50 36.7 C 93 H 99 H 20 118/62 113/79 99 11/03/18 02:46 97 H 23 110/54 L 100 11/03/18 02:40 95 H 20 132/43 L 100 11/03/18 02:35 96 H 22 115/53 L 100 11/03/18 02:31 97 H 16 134/75 100 11/03/18 02:26 97 H 20 144/99 H 100 11/03/18 02:21 99 H 19 113/79 100 11/03/18 02:17 99 H 29 H 72/62 L 100 11/03/18 01:36 36.7 C 102 H 23 127/73 100 11/03/18 01:23 36.8 C 99 H 17 107/67 100 11/03/18 01:22 99 H 24 107/67 11/03/18 01:21 36.8 C 97 H 19 107/67 98 11/03/18 01:15 99 H 19 120/72 100 11/03/18 01:10 98 H 20 132/78 95 11/03/18 01:06 101 H 21 110/46 L 100 11/03/18 01:05 98 H 18 97 11/03/18 01:03 36.5 C 99 H 21 93/61 L 95 11/03/18 01:00 100 H 15 93/61 L 100 11/03/18 00:55 100 H 21 110/54 L 100 11/03/18 00:52 36.4 C L 101 H 23 110/54 L 100 11/03/18 00:50 103 H 25 H 70/52 L 99 11/03/18 00:46 102 H 26 H 86/66 L 100 11/03/18 00:40 102 H 20 122/61 98 11/03/18 00:37 36.4 C L 102 H 24 110/59 L 100 11/03/18 00:36 101 H 15 110/59 L 100 11/03/18 00:35 102 H 24 99 11/03/18 00:31 102 H 19 81/67 L 100 11/03/18 00:30 102 H 18 11/03/18 00:25 94 H 21 84/52 L 11/03/18 00:20 95 H 24 87/44 L 11/03/18 00:19 36.5 C 97 H 22 87/44 L 96 11/03/18 00:18 98 H 22 98/48 L 11/03/18 00:05 102 H 25 H 75/56 L 100 11/03/18 00:01 106 H 25 H 96 11/03/18 00:00 100 H 28 H 99 11/02/18 23:55 99 H 22 98 11/02/18 23:50 98 H 27 H 100 11/02/18 23:45 99 H 28 H 93/46 L 97 11/02/18 23:40 107 H 24 11/02/18 23:35 110 H 16 11/02/18 23:30 100 H 29 H 95 11/02/18 23:25 98 H 26 H 98 11/02/18 23:20 100 H 24 96 11/02/18 23:15 100 H 19 93 11/02/18 23:10 100 H 21 98 11/02/18 23:05 104 H 25 H 98 11/02/18 23:00 102 H 25 H 97 11/02/18 22:57 103 H 23 98 11/02/18 22:48 104 H 23 113/53 L 98 11/02/18 22:45 36.5 C 104 H 29 H 113/53 L 96 Recovery Score Activity: Moves 0 extremities Respiration: Dyspnea/Limited Breathing Circulation: +/-50% PreAnes Value Consciousness: Arouseable (by name) Oxygen Saturation: O2 needed for >90% Post Anesthesia Score: 3 Post Sedation Plan On clinical assessment, the patient appears to have tolerated the sedation without complications. Patient is recovering as anticipated. Patient will remain in ICU. Procedural start time: 1730 Procedural end time: 1750 Total propofol given: 80 mg via 10 mg aliquots Total fentanyl given: 87.5 mcg via 25 mcg aliquots with a single 12.5 mcg aliquot near the end of the procedure I personally administered the medications. Patient's blood pressure mildly elevated during the procedure if this is clinically consistent with epinephrine given into gastric ulcer base.
[2018-11-03] MEDS ORDERED: GLUCAGON FOR INJ 1 MG VIAL SQ PRN (18:42)
--- NOTE | 2018-11-03 19:38 | GI REPORT ---
Patient Name: Zana Carlson Procedure Date: 11/03/2018 5:34 PM Date of : 1940 Admit Type: Inpatient Age: 78 Gender: Male Attending MD: Jessica Rico MD Procedure: Upper GI endoscopy Providers: Jessica Rico MD Referring MD: Brian De La Fuente d.o., Dennis S. Probst Indications: Melena Medicines: Monitored Anesthesia Care Complications: No immediate complications. Estimated Blood Loss: Estimated blood loss: none. Procedure: Pre-Anesthesia Assessment: - Prior to the procedure, a History and Physical was performed, and patient medications and allergies were reviewed. The patient is competent. The risks and benefits of the procedure and the sedation options and risks were discussed with the patient. All questions were answered and informed consent was obtained. Patient identification and proposed procedure were verified by the physician and the nurse in the procedure room. Mental Status Examination: alert and oriented. Airway Examination: normal oropharyngeal airway and neck mobility. Respiratory Examination: clear to auscultation. CV Examination: normal. ASA Grade Assessment: III - A patient with severe systemic disease. After reviewing the risks and benefits, the patient was deemed in satisfactory condition to undergo the procedure. The anesthesia plan was to use monitored anesthesia care (MAC). Immediately prior to administration of medications, the patient was re-assessed for adequacy to receive sedatives. The heart rate, respiratory rate, oxygen saturations, blood pressure, adequacy of pulmonary ventilation, and response to care were monitored throughout the procedure. The physical status of the patient was re-assessed after the procedure. After obtaining informed consent, the endoscope was passed under direct vision. Throughout the procedure, the patient's blood pressure, pulse, and oxygen saturations were monitored continuously. The Endoscope was introduced through the mouth, and advanced to the second part of duodenum. The upper GI endoscopy was accomplished without difficulty. The patient tolerated the procedure well. Findings: LA Grade A (one or more mucosal breaks less than 5 mm, not extending between tops of 2 mucosal folds) esophagitis with no bleeding was found at the gastroesophageal junction. Five non-bleeding cratered gastric ulcers, two of them with a visible vessel were found in the gastric body and in the gastric antrum. The largest lesion was 15 mm in largest dimension. Area was successfully injected with 5 mL of a 1:10,000 solution of epinephrine for hemostasis. Coagulation for hemostasis using bipolar probe was successful. Multipel superficial gastric ulcers seen with no bleeding. The duodenal bulb and second portion of the duodenum were normal. Impression: - LA Grade A reflux esophagitis. - Multiple non-bleeding gastric ulcers with a visible vessel. Injected. Treated with bipolar cautery. - Normal duodenal bulb and second portion of the duodenum. - No specimens collected. Recommendation: - Clear liquid diet. - Follow an antireflux regimen. - Use a proton pump inhibitor IV daily for 2 days then switch to a proton pump inhibitor 40 mg PO BID for 2 months. - Repeat upper endoscopy in 2 months to check healing. - Check stool H.Pylori Ag. - Avoid NSAIDs. - Monitor H/H. - Can resume anticoagulation in 2 days if no evidence of rebleeding. Jessica Rico MD 11/03/2018 7:38:02 PM This report has been signed electronically. Note Initiated On: 11/03/2018 5:34 PM Number of Addenda: 0 I attest to the content of the Intraoperative Record and orders documented therein, exceptions below {[id number]}
[2018-11-03 20:09] LABS: Hematocrit (blood only) 24.8 % (42-52); Hemoglobin 8.1 g/dL (14.0-18.0)
[2018-11-03] MEDS: SUCRALFATE 1 GM/10 ML UDC PO SCH (20:58)
--- NOTE | 2018-11-03 21:04 | Hospitalist Progress Note ---
Date of Service November 03, 2018 Assessment & Plan (1) Upper GI bleeding: Pt with syncope due to severe acute blood loss anemia due to upper GI bleeding. s/p EGD today with multiple gastric ulcers (including 1 with visible vessel) and esophagitis. This is in the setting of recent asa and coumadin use s/p right quadriceps tendon repair in late September. s/p 3 units PRBCs since admission and 2 units FFP due to therapeutic INR from coumadin at presentation. Cont PPI drip. Serial H/H's. Defer diet to GI. Appreciate GI/critical care assistance. (2) Acute kidney injury: likely 2nd to hypotension/acute GI bleeding. Supportive care. BMP am. (3) Acute blood loss anemia: 2nd to upper GI bleeding/ulcers/esophagitis. Serial H/H's. Will need Fe at discharge. (4) Gastric ulcer with hemorrhage: PPI drip x 48 hours then PPI BID. Send h pylori stool ag. (5) Esophagitis: (6) Hypotension: resolved. last 2-3 hours at admission then normalized. 2nd to acute bleeding. (7) Syncope: 2nd to hypotension in setting of GI bleeding. (8) Hypertension: Holding home meds (9) Diabetes mellitus: pharmacy glycemic management appreciated (10) Patellar tendon rupture: s/p repair - Dr Trevino - September 2018. (11) BPH (benign prostatic hyperplasia): no issues (12) DVT prophylaxis: SCDs chemical means contraindicated in light of above encouraged patient to focus on acute issues (GI bleeding, etc) and will figure out disposition as time goes on Subjective saw patient post-EGD; he was resting in the ICU during my assessment. easily awoke. he did not want to talk about anything except his disposition. he recently underwent right knee quadriceps tendon repair and following such went to [facility]. he used curse words to describe his experience and stated "I'm going home; I'm not going back to rehab." he lives w/ his daughter in [place]. she apparently had told him today that he "couldn't go home" [following this hospital stay] and this makes him upset. denied any abd pain, nausea, emesis. Review of Systems Constitutional: no fever Respiratory: no cough and no dyspnea Cardiovascular: no chest pain Gastrointestinal: no abdominal pain Physical Exam Constitutional: no acute distress and no altered mental status ENMT: external ear and nose normal, oropharynx normal Respiratory: normal respiratory effort, lungs clear to auscultation Cardiovascular: Rate/Rhythm: regular rate and regular rhythm Heart Sounds: normal S1 and normal S2; no murmur Vessels: posterior tibial pulses present and dorsalis pedis pulses present; no JVD Extremities: no edema Gastrointestinal (Abdomen): normal bowel sounds, soft, nontender, no hepatosplenomegaly Musculoskeletal: right leg in large splint Psychiatric: Orientation: alert and oriented x 3 Affect: + irritable affect Results & Data Vital Signs (Past 12 Hours) Vital Signs Temp Pulse Pulse Resp BP BP Pulse Ox 11/03/18 17:55 77 23 188/78 H 99 11/03/18 17:50 75 22 177/76 H 100 11/03/18 17:46 85 20 174/76 H 100 11/03/18 17:45 73 21 174/75 H 100 11/03/18 17:40 76 17 158/59 H 100 11/03/18 17:35 73 18 116/76 100 11/03/18 17:30 81 20 154/95 H 98 11/03/18 17:29 81 16 126/85 98 11/03/18 17:00 76 20 99 11/03/18 16:23 36.7 C 67 17 154/55 H 96 11/03/18 16:00 36.7 C 77 23 151/55 H 97 11/03/18 15:21 36.7 C 67 17 154/55 H 96 11/03/18 15:00 68 18 131/46 L 99 11/03/18 14:36 36.7 C 73 22 129/60 100 11/03/18 14:13 81 25 H 143/55 H 92 11/03/18 14:00 77 20 143/55 H 100 11/03/18 13:00 72 21 133/44 L 98 11/03/18 12:00 36.7 C 70 21 135/53 L 100 11/03/18 11:00 74 20 127/54 L 100 11/03/18 10:00 73 20 130/45 L 100 Laboratory Results Laboratory Results - last 24 hr 11/02/18 11/02/18 11/02/18 22:57 22:57 22:57 WBC 24.70 H RBC 2.22 L Hgb 6.4 L* POC Hgb Hct 20.5 L* POC Hct MCV 92.3 MCH 28.8 MCHC 31.2 L RDW Std Deviation 51.0 H RDW Coeff of Dayo 15.4 H Plt Count 502 H MPV 8.5 Immature Gran % (Auto) 1.0 Neut % (Auto) 88.4 Lymph % (Auto) 7.9 [place] % (Auto) 2.5 Eos % (Auto) 0.1 Baso % (Auto) 0.1 Immature Gran # (Auto) 0.24 H Neut # (Auto) 21.85 H Lymph # (Auto) 1.94 [place] # (Auto) 0.62 H Eos # (Auto) 0.03 Baso # (Auto) 0.02 Polychromasia 1+ Ovalocytes 1+ Echinocytes 1+ PT 23.9 H INR 2.5 H APTT 32.5 H PTT Ratio 1.2 POC Sodium Sodium 147 H POC Potassium Potassium 4.6 POC Chloride Chloride 113 H Carbon Dioxide 16 L POC Total CO2 Anion Gap 18.0 H POC Anion Gap POC BUN BUN 66 H Creatinine 1.62 H POC Creatinine Est Cr Clr Drug Dosing 43.6 Est GFR ( Amer) 45.8 Est GFR (Non-Af Amer) 39.5 BUN/Creatinine Ratio 40.5 H Glucose 245 H POC Glucose POC Glucose (other) Estimat Average Glucose Hemoglobin A1c Lactate Calcium 8.0 L POC Ioniz Calcium Asael Phosphorus Magnesium Total Bilirubin 0.3 AST 22 ALT 38 Alkaline Phosphatase 87 Troponin I 0.037 Total Protein 5.8 L Albumin 2.6 L Globulin 3.2 Albumin/Globulin Ratio 0.8 L Lipase 355 Urine Color Urine Appearance Urine pH Ur Specific [place] Urine Protein Urine Glucose (UA) Urine Ketones Urine Blood Urine Nitrite Urine Bilirubin Urine Urobilinogen Ur Leukocyte Esterase Urine WBC (Auto) Urine RBC (Auto) U Hyaline Cast (Auto) U Epithel Cells (Auto) Urine Bacteria (Auto) Calcium Oxalate [place] Urine Yeast Nasal Screen MRSA (PCR) Gastric Fluid pH Gastric Occult Blood Stl C. diff Tox B Gene Blood Type Blood Type Recheck Antibody Screen Crossmatch 11/02/18 11/02/18 11/03/18 22:57 23:07 02:10 WBC RBC Hgb POC Hgb 6.1 L* Hct POC Hct 18 L* MCV MCH MCHC RDW Std Deviation RDW Coeff of Dayo Plt Count MPV Immature Gran % (Auto) Neut % (Auto) Lymph % (Auto) [place] % (Auto) Eos % (Auto) Baso % (Auto) Immature Gran # (Auto) Neut # (Auto) Lymph # (Auto) [place] # (Auto) Eos # (Auto) Baso # (Auto) Polychromasia Ovalocytes Echinocytes PT INR APTT PTT Ratio POC Sodium 141 Sodium POC Potassium 4.7 Potassium POC Chloride 113 H Chloride Carbon Dioxide POC Total CO2 15 L Anion Gap POC Anion Gap 19.0 POC BUN 71 H BUN Creatinine POC Creatinine 1.4 H Est Cr Clr Drug Dosing Est GFR ( Amer) Est GFR (Non-Af Amer) BUN/Creatinine Ratio Glucose POC Glucose POC Glucose (other) 245 H Estimat Average Glucose Hemoglobin A1c Lactate Calcium POC Ioniz Calcium Asael 1.02 L Phosphorus Magnesium Total Bilirubin AST ALT Alkaline Phosphatase Troponin I Total Protein Albumin Globulin Albumin/Globulin Ratio Lipase Urine Color Urine Appearance Urine pH Ur Specific [place] Urine Protein Urine Glucose (UA) Urine Ketones Urine Blood Urine Nitrite Urine Bilirubin Urine Urobilinogen Ur Leukocyte Esterase Urine WBC (Auto) Urine RBC (Auto) U Hyaline Cast (Auto) U Epithel Cells (Auto) Urine Bacteria (Auto) Calcium Oxalate [place] Urine Yeast Nasal Screen MRSA (PCR) Gastric Fluid pH 2 Gastric Occult Blood Positive A Stl C. diff Tox B Gene Blood Type A Negative Blood Type Recheck Antibody Screen NEGATIVE Crossmatch See Detail 11/03/18 11/03/18 11/03/18 02:15 02:40 03:29 WBC 13.70 H D RBC 2.79 L Hgb 8.0 L POC Hgb Hct 24.3 L POC Hct MCV 87.1 D MCH 28.7 MCHC 32.9 RDW Std Deviation 54.1 H RDW Coeff of Dayo 17.0 H Plt Count 268 MPV 8.2 Immature Gran % (Auto) 0.7 Neut % (Auto) 87.3 Lymph % (Auto) 8.1 [place] % (Auto) 3.8 Eos % (Auto) 0.0 Baso % (Auto) 0.1 Immature Gran # (Auto) 0.09 H Neut # (Auto) 11.97 H Lymph # (Auto) 1.11 L [place] # (Auto) 0.52 Eos # (Auto) 0.00 Baso # (Auto) 0.01 Polychromasia 1+ Ovalocytes Echinocytes PT INR APTT PTT Ratio POC Sodium Sodium POC Potassium Potassium POC Chloride Chloride Carbon Dioxide POC Total CO2 Anion Gap POC Anion Gap POC BUN BUN Creatinine POC Creatinine Est Cr Clr Drug Dosing Est GFR ( Amer) Est GFR (Non-Af Amer) BUN/Creatinine Ratio Glucose POC Glucose POC Glucose (other) Estimat Average Glucose Hemoglobin A1c Lactate 4.5 H* Calcium POC Ioniz Calcium Asael Phosphorus Magnesium Total Bilirubin AST ALT Alkaline Phosphatase Troponin I Total Protein Albumin Globulin Albumin/Globulin Ratio Lipase Urine Color Urine Appearance Urine pH Ur Specific [place] Urine Protein Urine Glucose (UA) Urine Ketones Urine Blood Urine Nitrite Urine Bilirubin Urine Urobilinogen Ur Leukocyte Esterase Urine WBC (Auto) Urine RBC (Auto) U Hyaline Cast (Auto) U Epithel Cells (Auto) Urine Bacteria (Auto) Calcium Oxalate [place] Urine Yeast Nasal Screen MRSA (PCR) Negative Gastric Fluid pH Gastric Occult Blood Stl C. diff Tox B Gene Blood Type Blood Type Recheck Antibody Screen Crossmatch 11/03/18 11/03/18 11/03/18 03:29 03:33 05:10 WBC RBC Hgb POC Hgb Hct POC Hct MCV MCH MCHC RDW Std Deviation RDW Coeff of Dayo Plt Count MPV Immature Gran % (Auto) Neut % (Auto) Lymph % (Auto) [place] % (Auto) Eos % (Auto) Baso % (Auto) Immature Gran # (Auto) Neut # (Auto) Lymph # (Auto) [place] # (Auto) Eos # (Auto) Baso # (Auto) Polychromasia Ovalocytes Echinocytes PT INR APTT PTT Ratio POC Sodium Sodium 148 H POC Potassium Potassium 4.0 POC Chloride Chloride 116 H Carbon Dioxide 22 POC Total CO2 Anion Gap 10.0 POC Anion Gap POC BUN BUN 62 H Creatinine 1.60 H POC Creatinine Est Cr Clr Drug Dosing 44.2 Est GFR ( Amer) 46.5 Est GFR (Non-Af Amer) 40.1 BUN/Creatinine Ratio 38.9 H Glucose 250 H POC Glucose POC Glucose (other) Estimat Average Glucose 120 Hemoglobin A1c 5.8 H Lactate Calcium 6.5 L D POC Ioniz Calcium Asael Phosphorus 3.6 Magnesium 1.7 L Total Bilirubin 0.8 D AST 25 ALT 31 Alkaline Phosphatase 66 Troponin I 0.067 H* Total Protein 4.9 L Albumin 2.2 L Globulin 2.7 Albumin/Globulin Ratio 0.8 L Lipase Urine Color Yellow Urine Appearance Turbid A Urine pH 5.0 Ur Specific [place] 1.027 Urine Protein Trace H Urine Glucose (UA) Negative Urine Ketones Negative Urine Blood Trace H Urine Nitrite Negative Urine Bilirubin Negative Urine Urobilinogen Negative Ur Leukocyte Esterase Negative Urine WBC (Auto) 10-30 H Urine RBC (Auto) 0-4 U Hyaline Cast (Auto) 1-5 U Epithel Cells (Auto) >30 H Urine Bacteria (Auto) Negative Calcium Oxalate [place] Present A Urine Yeast Not Reportable Nasal Screen MRSA (PCR) Gastric Fluid pH Gastric Occult Blood Stl C. diff Tox B Gene Blood Type Blood Type Recheck Antibody Screen Crossmatch 11/03/18 11/03/18 11/03/18 07:32 07:32 07:38 WBC RBC Hgb 7.2 L POC Hgb Hct 22.1 L POC Hct MCV MCH MCHC RDW Std Deviation RDW Coeff of Dayo Plt Count MPV Immature Gran % (Auto) Neut % (Auto) Lymph % (Auto) [place] % (Auto) Eos % (Auto) Baso % (Auto) Immature Gran # (Auto) Neut # (Auto) Lymph # (Auto) [place] # (Auto) Eos # (Auto) Baso # (Auto) Polychromasia Ovalocytes Echinocytes PT 17.5 H INR 1.8 H APTT PTT Ratio POC Sodium Sodium POC Potassium Potassium POC Chloride Chloride Carbon Dioxide POC Total CO2 Anion Gap POC Anion Gap POC BUN BUN Creatinine POC Creatinine Est Cr Clr Drug Dosing Est GFR ( Amer) Est GFR (Non-Af Amer) BUN/Creatinine Ratio Glucose POC Glucose POC Glucose (other) Estimat Average Glucose Hemoglobin A1c Lactate 2.0 Calcium POC Ioniz Calcium Asael Phosphorus Magnesium Total Bilirubin AST ALT Alkaline Phosphatase Troponin I Total Protein Albumin Globulin Albumin/Globulin Ratio Lipase Urine Color Urine Appearance Urine pH Ur Specific [place] Urine Protein Urine Glucose (UA) Urine Ketones Urine Blood Urine Nitrite Urine Bilirubin Urine Urobilinogen Ur Leukocyte Esterase Urine WBC (Auto) Urine RBC (Auto) U Hyaline Cast (Auto) U Epithel Cells (Auto) Urine Bacteria (Auto) Calcium Oxalate [place] Urine Yeast Nasal Screen MRSA (PCR) Gastric Fluid pH Gastric Occult Blood Stl C. diff Tox B Gene Blood Type Blood Type Recheck Antibody Screen Crossmatch 11/03/18 11/03/18 11/03/18 08:06 09:07 09:25 WBC RBC Hgb POC Hgb Hct POC Hct MCV MCH MCHC RDW Std Deviation RDW Coeff of Dayo Plt Count MPV Immature Gran % (Auto) Neut % (Auto) Lymph % (Auto) [place] % (Auto) Eos % (Auto) Baso % (Auto) Immature Gran # (Auto) Neut # (Auto) Lymph # (Auto) [place] # (Auto) Eos # (Auto) Baso # (Auto) Polychromasia Ovalocytes Echinocytes PT INR APTT PTT Ratio POC Sodium Sodium POC Potassium Potassium POC Chloride Chloride Carbon Dioxide POC Total CO2 Anion Gap POC Anion Gap POC BUN BUN Creatinine POC Creatinine Est Cr Clr Drug Dosing Est GFR ( Amer) Est GFR (Non-Af Amer) BUN/Creatinine Ratio Glucose POC Glucose 236 H 216 H POC Glucose (other) Estimat Average Glucose Hemoglobin A1c Lactate Calcium POC Ioniz Calcium Asael Phosphorus Magnesium Total Bilirubin AST ALT Alkaline Phosphatase Troponin I Total Protein Albumin Globulin Albumin/Globulin Ratio Lipase Urine Color Urine Appearance Urine pH Ur Specific [place] Urine Protein Urine Glucose (UA) Urine Ketones Urine Blood Urine Nitrite Urine Bilirubin Urine Urobilinogen Ur Leukocyte Esterase Urine WBC (Auto) Urine RBC (Auto) U Hyaline Cast (Auto) U Epithel Cells (Auto) Urine Bacteria (Auto) Calcium Oxalate [place] Urine Yeast Nasal Screen MRSA (PCR) Gastric Fluid pH Gastric Occult Blood Stl C. diff Tox B Gene Negative Cdiff Gene Blood Type Blood Type Recheck Antibody Screen Crossmatch 11/03/18 11/03/18 11/03/18 10:10 10:59 11:31 WBC RBC Hgb POC Hgb Hct POC Hct MCV MCH MCHC RDW Std Deviation RDW Coeff of Dayo Plt Count MPV Immature Gran % (Auto) Neut % (Auto) Lymph % (Auto) [place] % (Auto) Eos % (Auto) Baso % (Auto) Immature Gran # (Auto) Neut # (Auto) Lymph # (Auto) [place] # (Auto) Eos # (Auto) Baso # (Auto) Polychromasia Ovalocytes Echinocytes PT INR APTT PTT Ratio POC Sodium Sodium POC Potassium Potassium POC Chloride Chloride Carbon Dioxide POC Total CO2 Anion Gap POC Anion Gap POC BUN BUN Creatinine POC Creatinine Est Cr Clr Drug Dosing Est GFR ( Amer) Est GFR (Non-Af Amer) BUN/Creatinine Ratio Glucose POC Glucose 191 H 161 H POC Glucose (other) Estimat Average Glucose Hemoglobin A1c Lactate Calcium POC Ioniz Calcium Asael Phosphorus Magnesium Total Bilirubin AST ALT Alkaline Phosphatase Troponin I 0.147 H* Total Protein Albumin Globulin Albumin/Globulin Ratio Lipase Urine Color Urine Appearance Urine pH Ur Specific [place] Urine Protein Urine Glucose (UA) Urine Ketones Urine Blood Urine Nitrite Urine Bilirubin Urine Urobilinogen Ur Leukocyte Esterase Urine WBC (Auto) Urine RBC (Auto) U Hyaline Cast (Auto) U Epithel Cells (Auto) Urine Bacteria (Auto) Calcium Oxalate [place] Urine Yeast Nasal Screen MRSA (PCR) Gastric Fluid pH Gastric Occult Blood Stl C. diff Tox B Gene Blood Type Blood Type Recheck Antibody Screen Crossmatch 11/03/18 11/03/18 11/03/18 12:30 12:49 13:03 WBC RBC Hgb POC Hgb Hct POC Hct MCV MCH MCHC RDW Std Deviation RDW Coeff of Dayo Plt Count MPV Immature Gran % (Auto) Neut % (Auto) Lymph % (Auto) [place] % (Auto) Eos % (Auto) Baso % (Auto) Immature Gran # (Auto) Neut # (Auto) Lymph # (Auto) [place] # (Auto) Eos # (Auto) Baso # (Auto) Polychromasia Ovalocytes Echinocytes PT INR APTT PTT Ratio POC Sodium Sodium POC Potassium Potassium POC Chloride Chloride Carbon Dioxide POC Total CO2 Anion Gap POC Anion Gap POC BUN BUN Creatinine POC Creatinine Est Cr Clr Drug Dosing Est GFR ( Amer) Est GFR (Non-Af Amer) BUN/Creatinine Ratio Glucose POC Glucose 98 90 84 POC Glucose (other) Estimat Average Glucose Hemoglobin A1c Lactate Calcium POC Ioniz Calcium Asael Phosphorus Magnesium Total Bilirubin AST ALT Alkaline Phosphatase Troponin I Total Protein Albumin Globulin Albumin/Globulin Ratio Lipase Urine Color Urine Appearance Urine pH Ur Specific [place] Urine Protein Urine Glucose (UA) Urine Ketones Urine Blood Urine Nitrite Urine Bilirubin Urine Urobilinogen Ur Leukocyte Esterase Urine WBC (Auto) Urine RBC (Auto) U Hyaline Cast (Auto) U Epithel Cells (Auto) Urine Bacteria (Auto) Calcium Oxalate [place] Urine Yeast Nasal Screen MRSA (PCR) Gastric Fluid pH Gastric Occult Blood Stl C. diff Tox B Gene Blood Type Blood Type Recheck Antibody Screen Crossmatch 11/03/18 11/03/18 11/03/18 13:17 13:17 13:20 WBC RBC Hgb 6.9 L* POC Hgb Hct 20.7 L* POC Hct MCV MCH MCHC RDW Std Deviation RDW Coeff of Dayo Plt Count MPV Immature Gran % (Auto) Neut % (Auto) Lymph % (Auto) [place] % (Auto) Eos % (Auto) Baso % (Auto) Immature Gran # (Auto) Neut # (Auto) Lymph # (Auto) [place] # (Auto) Eos # (Auto) Baso # (Auto) Polychromasia Ovalocytes Echinocytes PT INR APTT PTT Ratio POC Sodium Sodium POC Potassium Potassium POC Chloride Chloride Carbon Dioxide POC Total CO2 Anion Gap POC Anion Gap POC BUN BUN Creatinine POC Creatinine Est Cr Clr Drug Dosing Est GFR ( Amer) Est GFR (Non-Af Amer) BUN/Creatinine Ratio Glucose POC Glucose 94 POC Glucose (other) Estimat Average Glucose Hemoglobin A1c Lactate Calcium POC Ioniz Calcium Asael Phosphorus Magnesium Total Bilirubin AST ALT Alkaline Phosphatase Troponin I Total Protein Albumin Globulin Albumin/Globulin Ratio Lipase Urine Color Urine Appearance Urine pH Ur Specific [place] Urine Protein Urine Glucose (UA) Urine Ketones Urine Blood Urine Nitrite Urine Bilirubin Urine Urobilinogen Ur Leukocyte Esterase Urine WBC (Auto) Urine RBC (Auto) U Hyaline Cast (Auto) U Epithel Cells (Auto) Urine Bacteria (Auto) Calcium Oxalate [place] Urine Yeast Nasal Screen MRSA (PCR) Gastric Fluid pH Gastric Occult Blood Stl C. diff Tox B Gene Blood Type Blood Type Recheck A Negative Antibody Screen Crossmatch 11/03/18 11/03/18 11/03/18 13:40 14:02 14:24 WBC RBC Hgb POC Hgb Hct POC Hct MCV MCH MCHC RDW Std Deviation RDW Coeff of Dayo Plt Count MPV Immature Gran % (Auto) Neut % (Auto) Lymph % (Auto) [place] % (Auto) Eos % (Auto) Baso % (Auto) Immature Gran # (Auto) Neut # (Auto) Lymph # (Auto) [place] # (Auto) Eos # (Auto) Baso # (Auto) Polychromasia Ovalocytes Echinocytes PT INR APTT PTT Ratio POC Sodium Sodium POC Potassium Potassium POC Chloride Chloride Carbon Dioxide POC Total CO2 Anion Gap POC Anion Gap POC BUN BUN Creatinine POC Creatinine Est Cr Clr Drug Dosing Est GFR ( Amer) Est GFR (Non-Af Amer) BUN/Creatinine Ratio Glucose POC Glucose 83 92 87 POC Glucose (other) Estimat Average Glucose Hemoglobin A1c Lactate Calcium POC Ioniz Calcium Asael Phosphorus Magnesium Total Bilirubin AST ALT Alkaline Phosphatase Troponin I Total Protein Albumin Globulin Albumin/Globulin Ratio Lipase Urine Color Urine Appearance Urine pH Ur Specific [place] Urine Protein Urine Glucose (UA) Urine Ketones Urine Blood Urine Nitrite Urine Bilirubin Urine Urobilinogen Ur Leukocyte Esterase Urine WBC (Auto) Urine RBC (Auto) U Hyaline Cast (Auto) U Epithel Cells (Auto) Urine Bacteria (Auto) Calcium Oxalate [place] Urine Yeast Nasal Screen MRSA (PCR) Gastric Fluid pH Gastric Occult Blood Stl C. diff Tox B Gene Blood Type Blood Type Recheck Antibody Screen Crossmatch 11/03/18 11/03/18 11/03/18 14:44 17:01 17:23 WBC RBC Hgb POC Hgb Hct POC Hct MCV MCH MCHC RDW Std Deviation RDW Coeff of Dayo Plt Count MPV Immature Gran % (Auto) Neut % (Auto) Lymph % (Auto) [place] % (Auto) Eos % (Auto) Baso % (Auto) Immature Gran # (Auto) Neut # (Auto) Lymph # (Auto) [place] # (Auto) Eos # (Auto) Baso # (Auto) Polychromasia Ovalocytes Echinocytes PT INR APTT PTT Ratio POC Sodium Sodium POC Potassium Potassium POC Chloride Chloride Carbon Dioxide POC Total CO2 Anion Gap POC Anion Gap POC BUN BUN Creatinine POC Creatinine Est Cr Clr Drug Dosing Est GFR ( Amer) Est GFR (Non-Af Amer) BUN/Creatinine Ratio Glucose POC Glucose 90 91 POC Glucose (other) Estimat Average Glucose Hemoglobin A1c Lactate Calcium POC Ioniz Calcium Asael Phosphorus Magnesium Total Bilirubin AST ALT Alkaline Phosphatase Troponin I 0.134 H* Total Protein Albumin Globulin Albumin/Globulin Ratio Lipase Urine Color Urine Appearance Urine pH Ur Specific [place] Urine Protein Urine Glucose (UA) Urine Ketones Urine Blood Urine Nitrite Urine Bilirubin Urine Urobilinogen Ur Leukocyte Esterase Urine WBC (Auto) Urine RBC (Auto) U Hyaline Cast (Auto) U Epithel Cells (Auto) Urine Bacteria (Auto) Calcium Oxalate [place] Urine Yeast Nasal Screen MRSA (PCR) Gastric Fluid pH Gastric Occult Blood Stl C. diff Tox B Gene Blood Type Blood Type Recheck Antibody Screen Crossmatch 11/03/18 11/03/18 19:47 20:56 WBC RBC Hgb 8.1 L POC Hgb Hct 24.8 L POC Hct MCV MCH MCHC RDW Std Deviation RDW Coeff of Dayo Plt Count MPV Immature Gran % (Auto) Neut % (Auto) Lymph % (Auto) [place] % (Auto) Eos % (Auto) Baso % (Auto) Immature Gran # (Auto) Neut # (Auto) Lymph # (Auto) [place] # (Auto) Eos # (Auto) Baso # (Auto) Polychromasia Ovalocytes Echinocytes PT INR APTT PTT Ratio POC Sodium Sodium POC Potassium Potassium POC Chloride Chloride Carbon Dioxide POC Total CO2 Anion Gap POC Anion Gap POC BUN BUN Creatinine POC Creatinine Est Cr Clr Drug Dosing Est GFR ( Amer) Est GFR (Non-Af Amer) BUN/Creatinine Ratio Glucose POC Glucose 125 H POC Glucose (other) Estimat Average Glucose Hemoglobin A1c Lactate Calcium POC Ioniz Calcium Asael Phosphorus Magnesium Total Bilirubin AST ALT Alkaline Phosphatase Troponin I Total Protein Albumin Globulin Albumin/Globulin Ratio Lipase Urine Color Urine Appearance Urine pH Ur Specific [place] Urine Protein Urine Glucose (UA) Urine Ketones Urine Blood Urine Nitrite Urine Bilirubin Urine Urobilinogen Ur Leukocyte Esterase Urine WBC (Auto) Urine RBC (Auto) U Hyaline Cast (Auto) U Epithel Cells (Auto) Urine Bacteria (Auto) Calcium Oxalate [place] Urine Yeast Nasal Screen MRSA (PCR) Gastric Fluid pH Gastric Occult Blood Stl C. diff Tox B Gene Blood Type Blood Type Recheck Antibody Screen Crossmatch PG Care Time/CCT Total # of Minutes Spent Total Time Spent with Patient: Total time spent is greater than 50% in coordination of care (as documented) at patient's floor/unit and/or counseling patient: (1) Diabetes mellitus Diabetes mellitus type: type 2 Diabetes mellitus correction insulin use: without tank terminal gauger use Diabetes mellitus complication status: without complication Qualified Code(s): E11.9 - Type 2 diabetes mellitus without complications (2) Syncope Syncope type: unspecified Qualified Code(s): R55 - Syncope and collapse (3) Hypertension Hypertension type: essential hypertension Qualified Code(s): I10 - Essential (primary) hypertension (4) Patellar tendon rupture Encounter type: subsequent encounter Laterality: right Qualified Code(s): S86.811D - Strain of other muscle(s) and tendon(s) at lower leg level, right leg, subsequent encounter (5) Hypotension Hypotension type: other hypotension type Qualified Code(s): I95.89 - Other hypotension (6) Gastric ulcer with hemorrhage Gastric ulcer chronicity: acute Qualified Code(s): K25.0 - Acute gastric ulcer with hemorrhage (7) BPH (benign prostatic hyperplasia) Lower urinary tract symptom presence: symptoms absent Qualified Code(s): N40.0 - Benign prostatic hyperplasia without lower urinary tract symptoms
[2018-11-04 04:07] LABS: Hematocrit (blood only) 22.5 % (42-52); Hemoglobin 7.4 g/dL (14.0-18.0); Mean Corpuscular Hgb Conc 32.9 g/dL (32-36); Mean Corpuscular Volume 88.2 fL (80-100); Mean Platelet Volume 7.6 fL (7.4-10.4); Platelet Count 207 K/uL (130-400); RDW Coefficient of Variation 17.2 % (11.5-14.5); RDW Standard Deviation 55.3 fL (36.4-46.3); Red Blood Count 2.55 M/uL (4.7-6.1); White Blood Count 8.78 K/uL (4.8-10.8)
[2018-11-04] MEDS: PANTOprazole 40 MG in DEXTROSE 5% 100 ML IV SCH ×4 (04:16→21:05)
[2018-11-04 04:32] LABS: Magnesium 2.8 mg/dl (1.8-2.4); Phosphorus 2.8 mg/dl (2.5-4.9)
[2018-11-04] MEDS: NORMOSOL-R 1,000 ML IV SCH ×2 (04:54→12:40)
[2018-11-04] MEDS: INSULIN ASPART 100 UNITS/ML 3 ML PEN SC SCH ×4 (05:52→21:08)
[2018-11-04] MEDS: SUCRALFATE 1 GM/10 ML UDC PO SCH ×4 (08:51→21:09)
[2018-11-04 09:10] LABS: INR 1.2 (0.9-1.1); Prothrombin Time 11.9 Seconds (9.0-12.0)
[2018-11-04 09:28] LABS: BUN Creatinine Ratio 36.1 (10-20); Calcium 7.6 mg/dl (8.5-10.1); Creatinine Clr Calc Pharmacy 49.4 ml/min; Est GFR (African American) 55.6; Est GFR (Non-African American) 47.9
--- NOTE | 2018-11-04 09:35 | Gastroenterology Progress Note ---
Date of Service November 04, 2018 Assessment & Plan (1) GI bleeding: (2) Symptomatic anemia: Pt is a 78 y/o male admitted presented w syncopal episode and noted to have acute anemia, and symptoms of coffee ground emesis, dark stools. He was on Coumadin, INR 2.5 on admission. He has received total of 3U PRBC transfusion during this admission. EGD on 11/03 showed LA Grade A reflux esophagitis, multiple non bleeding gastric ulcers w visible vessels (injected and treated w bipolar cautery). Duodenum normal. No BMs overnight but this AM had one episode of melena. H/H dropped slightly from overnight - Keep on CL diet - PPI gtt x 1 more day then can convert to PO BID dose x 2 months then once daily - Repeat EGD in 2 months' time to eval for ulcer healing - Avoid NSAIDs - Check stool Hpylori Ag. - Continue to monitor for s/s of GI bleeding and serial H/H checks. If no further s/s of bleeding may resume anticoagulation in 2 day's time. Supervising Physician Co-Signing Physician Notes I performed a history and physical examination of the patient, including specifically on physical exam - soft, nontender abdomen. I have discussed the patient's management with Duyen. Please refer to the nurse practitioner's note for the documented findings and plan of care. Max dose PPI. Avoid NSAIDs. Repeat EGD in 2 months. Can start AC tomorrow. Recall GI if any evidence of rebleeding. Subjective Pt had no BMs overnight but this AM had melena. Feels well, denies any abd pain, n/v, CP, SOB. H/H w mild drop from overnight. Review of Systems Review of Systems: All systems reviewed & are unremarkable except as noted in HPI & below Physical Exam Constitutional: WD/WN, vitals as above well groomed, cooperative and comfortable Eyes: PERRL, conjunctivae normal, anicteric sclerae ENMT: external ear and nose normal, oropharynx normal Respiratory: normal respiratory effort, lungs clear to auscultation Cardiovascular: RRR, no murmur, no edema Gastrointestinal (Abdomen): Inspection/Auscultation: normal bowel sounds Percussion/Palpation: abdomen soft; abdomen nontender Skin: no rashes, warm and dry no jaundice Psychiatric: A+Ox3, euthymic affect Results & Data Vital Signs (Past 12 Hours) Vital Signs Temp Pulse Pulse Resp BP BP Pulse Ox 11/04/18 06:00 72 23 146/62 H 99 11/04/18 05:09 73 75 23 136/58 L 136/58 L 97 11/04/18 04:01 78 18 144/52 H 98 11/04/18 04:00 37.2 C 79 17 90 11/04/18 03:00 68 19 119/51 L 98 11/04/18 02:00 75 19 100/46 L 96 11/04/18 01:00 85 20 136/53 L 69 L 11/04/18 00:00 36.4 C L 126/50 L 99 11/03/18 23:00 125/49 L 96 11/03/18 22:25 77 21 110/53 L 98 11/03/18 22:20 128/52 L 97 11/03/18 22:15 132/53 L 96 11/03/18 22:10 77 19 126/53 L 96 11/03/18 22:05 76 126/63 96 11/03/18 22:00 74 28 H 123/54 L 98 11/03/18 21:55 76 20 130/56 L 96 11/03/18 21:50 67 19 102/45 L 96 11/03/18 21:45 65 22 117/49 L 95 11/03/18 21:40 65 19 113/47 L 96 11/03/18 21:35 67 19 116/48 L 95
--- NOTE | 2018-11-04 10:23 | Hospitalist Progress Note ---
Date of Service November 04, 2018 Assessment & Plan (1) Upper GI bleeding: Pt with syncope due to severe acute blood loss anemia due to upper GI bleeding. s/p EGD with multiple gastric ulcers (including 1 with visible vessel) and esophagitis. This is in the setting of recent asa and coumadin use s/p right quadriceps tendon repair in late September. s/p 3 units PRBCs since admission and 2 units FFP due to therapeutic INR from coumadin at presentation. Cont PPI drip another 24 hours -- then oral PPI twice daily thereafter. Serial H/H's. Defer diet to GI. Appreciate GI/critical care assistance. (2) Acute kidney injury: likely 2nd to hypotension/acute GI bleeding. resolving. BMP am. (3) Acute blood loss anemia: 2nd to upper GI bleeding/ulcers/esophagitis. Serial H/H's. Will need Fe at discharge. H/H stable today. Tx if Hb <7. (4) Gastric ulcer with hemorrhage: PPI drip x another 24 hours then PPI BID. Send h pylori stool ag. (5) Esophagitis: PPI (6) Hypotension: resolved. (7) Syncope: 2nd to hypotension in setting of GI bleeding. (8) Hypertension: Holding home meds (9) Diabetes mellitus: pharmacy glycemic management appreciated defer management to them (10) Patellar tendon rupture: RIGHT. s/p repair - Dr Trevino - September 2018. cont immobilizer WBAT to RLE with immobilizer on at all times (11) BPH (benign prostatic hyperplasia): no issues (12) DVT prophylaxis: SCDs cautiously starting SC heparin due to high risk of DVT in setting of recent ortho surgery spoke with Madonna Carlson from case management -- dispo planning Pt, Ot evals transfer to tele today Subjective pt denies any abd pain, nausea tolerating clears staff report patient desatted during the night-time - mouth breathing noted patient still quite upset about his disposition stating "I'm going home - I'm not going to any alf" he lives with his daughter but states that "she won't tell me what to do" denies dyspnea Review of Systems Constitutional: no fever and no chills Respiratory: no cough and no dyspnea Cardiovascular: no chest pain Gastrointestinal: no abdominal pain, no nausea and no vomiting Physical Exam Constitutional: no acute distress and no altered mental status ENMT: external ear and nose normal, oropharynx normal Respiratory: normal respiratory effort, lungs clear to auscultation Cardiovascular: Rate/Rhythm: regular rate and regular rhythm Heart Sounds: normal S1 and normal S2; no murmur Vessels: posterior tibial pulses present and dorsalis pedis pulses present; no JVD Extremities: no edema Gastrointestinal (Abdomen): normal bowel sounds, soft, nontender, no hepatosplenomegaly Musculoskeletal: right knee/leg in immobilizer Skin: + pallor Psychiatric: Orientation: alert and oriented x 3 Affect: + irritable affect Results & Data Vital Signs (Past 12 Hours) Vital Signs Temp Pulse Pulse Resp BP BP Pulse Ox 11/04/18 06:00 72 23 146/62 H 99 11/04/18 05:09 73 75 23 136/58 L 136/58 L 97 11/04/18 04:01 78 18 144/52 H 98 11/04/18 04:00 37.2 C 79 17 90 11/04/18 03:00 68 19 119/51 L 98 11/04/18 02:00 75 19 100/46 L 96 11/04/18 01:00 85 20 136/53 L 69 L 11/04/18 00:00 36.4 C L 126/50 L 99 11/03/18 23:00 125/49 L 96 11/03/18 22:25 77 21 110/53 L 98 Laboratory Results Laboratory Results - last 24 hr 11/02/18 11/03/18 11/03/18 22:57 09:25 10:10 WBC RBC Hgb Hct MCV MCH MCHC RDW Std Deviation RDW Coeff of Dayo Plt Count MPV PT INR Sodium Potassium Chloride Carbon Dioxide Anion Gap BUN Creatinine Est Cr Clr Drug Dosing Est GFR ( Amer) Est GFR (Non-Af Amer) BUN/Creatinine Ratio Glucose POC Glucose 191 H Calcium Phosphorus Magnesium Troponin I Stl C. diff Tox B Gene Negative Cdiff Gene Blood Type A Negative Blood Type Recheck Antibody Screen NEGATIVE Crossmatch See Detail 11/03/18 11/03/18 11/03/18 10:59 11:31 12:30 WBC RBC Hgb Hct MCV MCH MCHC RDW Std Deviation RDW Coeff of Dayo Plt Count MPV PT INR Sodium Potassium Chloride Carbon Dioxide Anion Gap BUN Creatinine Est Cr Clr Drug Dosing Est GFR ( Amer) Est GFR (Non-Af Amer) BUN/Creatinine Ratio Glucose POC Glucose 161 H 98 Calcium Phosphorus Magnesium Troponin I 0.147 H* Stl C. diff Tox B Gene Blood Type Blood Type Recheck Antibody Screen Crossmatch 11/03/18 11/03/18 11/03/18 12:49 13:03 13:17 WBC RBC Hgb 6.9 L* Hct 20.7 L* MCV MCH MCHC RDW Std Deviation RDW Coeff of Dayo Plt Count MPV PT INR Sodium Potassium Chloride Carbon Dioxide Anion Gap BUN Creatinine Est Cr Clr Drug Dosing Est GFR ( Amer) Est GFR (Non-Af Amer) BUN/Creatinine Ratio Glucose POC Glucose 90 84 Calcium Phosphorus Magnesium Troponin I Stl C. diff Tox B Gene Blood Type Blood Type Recheck Antibody Screen Crossmatch 11/03/18 11/03/18 11/03/18 13:17 13:20 13:40 WBC RBC Hgb Hct MCV MCH MCHC RDW Std Deviation RDW Coeff of Dayo Plt Count MPV PT INR Sodium Potassium Chloride Carbon Dioxide Anion Gap BUN Creatinine Est Cr Clr Drug Dosing Est GFR ( Amer) Est GFR (Non-Af Amer) BUN/Creatinine Ratio Glucose POC Glucose 94 83 Calcium Phosphorus Magnesium Troponin I Stl C. diff Tox B Gene Blood Type Blood Type Recheck A Negative Antibody Screen Crossmatch 11/03/18 11/03/18 11/03/18 14:02 14:24 14:44 WBC RBC Hgb Hct MCV MCH MCHC RDW Std Deviation RDW Coeff of Dayo Plt Count MPV PT INR Sodium Potassium Chloride Carbon Dioxide Anion Gap BUN Creatinine Est Cr Clr Drug Dosing Est GFR ( Amer) Est GFR (Non-Af Amer) BUN/Creatinine Ratio Glucose POC Glucose 92 87 90 Calcium Phosphorus Magnesium Troponin I Stl C. diff Tox B Gene Blood Type Blood Type Recheck Antibody Screen Crossmatch 11/03/18 11/03/18 11/03/18 17:01 17:23 19:47 WBC RBC Hgb 8.1 L Hct 24.8 L MCV MCH MCHC RDW Std Deviation RDW Coeff of Dayo Plt Count MPV PT INR Sodium Potassium Chloride Carbon Dioxide Anion Gap BUN Creatinine Est Cr Clr Drug Dosing Est GFR ( Amer) Est GFR (Non-Af Amer) BUN/Creatinine Ratio Glucose POC Glucose 91 Calcium Phosphorus Magnesium Troponin I 0.134 H* Stl C. diff Tox B Gene Blood Type Blood Type Recheck Antibody Screen Crossmatch 11/03/18 11/04/18 11/04/18 20:56 03:58 03:58 WBC 8.78 RBC 2.55 L Hgb 7.4 L Hct 22.5 L MCV 88.2 MCH 29.0 MCHC 32.9 RDW Std Deviation 55.3 H RDW Coeff of Dayo 17.2 H Plt Count 207 MPV 7.6 PT INR Sodium Potassium Chloride Carbon Dioxide Anion Gap BUN Creatinine Est Cr Clr Drug Dosing Est GFR ( Amer) Est GFR (Non-Af Amer) BUN/Creatinine Ratio Glucose POC Glucose 125 H Calcium Phosphorus 2.8 Magnesium 2.8 H Troponin I Stl C. diff Tox B Gene Blood Type Blood Type Recheck Antibody Screen Crossmatch 11/04/18 11/04/18 11/04/18 05:50 08:44 08:44 WBC RBC Hgb Hct MCV MCH MCHC RDW Std Deviation RDW Coeff of Dayo Plt Count MPV PT 11.9 INR 1.2 H Sodium 147 H Potassium 4.0 Chloride 115 H Carbon Dioxide 28 Anion Gap 4.0 BUN 50 H Creatinine 1.38 Est Cr Clr Drug Dosing 49.4 Est GFR ( Amer) 55.6 Est GFR (Non-Af Amer) 47.9 BUN/Creatinine Ratio 36.1 H Glucose 136 H POC Glucose 150 H Calcium 7.6 L D Phosphorus Magnesium Troponin I Stl C. diff Tox B Gene Blood Type Blood Type Recheck Antibody Screen Crossmatch 11/04/18 08:48 WBC RBC Hgb Hct MCV MCH MCHC RDW Std Deviation RDW Coeff of Dayo Plt Count MPV PT INR Sodium Potassium Chloride Carbon Dioxide Anion Gap BUN Creatinine Est Cr Clr Drug Dosing Est GFR ( Amer) Est GFR (Non-Af Amer) BUN/Creatinine Ratio Glucose POC Glucose 149 H Calcium Phosphorus Magnesium Troponin I Stl C. diff Tox B Gene Blood Type Blood Type Recheck Antibody Screen Crossmatch PG Care Time/CCT Total # of Minutes Spent Total Time Spent with Patient: Total time spent is greater than 50% in coordination of care (as documented) at patient's floor/unit and/or counseling patient: (1) BPH (benign prostatic hyperplasia) Lower urinary tract symptom presence: symptoms absent Qualified Code(s): N40.0 - Benign prostatic hyperplasia without lower urinary tract symptoms (2) Diabetes mellitus Diabetes mellitus complication status: without complication Diabetes mellitus termite treater insulin use: without [place] [facility] use Diabetes mellitus type: type 2 Qualified Code(s): E11.9 - Type 2 diabetes mellitus without complications (3) Syncope Syncope type: unspecified Qualified Code(s): R55 - Syncope and collapse (4) Gastric ulcer with hemorrhage Gastric ulcer chronicity: acute Qualified Code(s): K25.0 - Acute gastric ulcer with hemorrhage (5) Hypertension Hypertension type: essential hypertension Qualified Code(s): I10 - Essential (primary) hypertension (6) Hypotension Hypotension type: other hypotension type Qualified Code(s): I95.89 - Other hypotension (7) Patellar tendon rupture Encounter type: subsequent encounter Laterality: right Qualified Code(s): S86.811D - Strain of other muscle(s) and tendon(s) at lower leg level, right leg, subsequent encounter
--- NOTE | 2018-11-04 10:47 | Critical Care Progress Note ---
Date of Service November 04, 2018 Assessment & Plan (1) Admitted to intensive care unit: Reason Critically Ill: 78-year-old male with symptomatic anemia in the setting of GI bleed requiring close hemodynamic monitoring and need for transfusion of multiple blood products. NEURO - CAM ICU: NEGATIVE Pain: Well-controlled consider PRN IV dosing for RIGHT lower extremity pain in the setting of n.p.o. status. CARDIAC/VASCULAR - Hypotension and tachycardia:In the setting of profound anemia. Resolved status post transfusion -Patient has a normal heart rate, slightly hypertensive. Anti-hypertensive will be resumed per the primary team On telemetry monitoring No concerns at present RESPIRATORY - No history of pulmonary disease. Monitor closely for signs/symptoms of transfusion related pulmonary injuries. GI/NUTRITION - GI bleed: While initially presumed to be lower alone, patient did have gastric occult positive vomiting upon arrival in ICU.Given his recent administration of Coumadin in the setting of chronic aspirin therapy, and concern for possible upper GI source at this time. No reported zack red blood per rectum. Had an episode of hematemesis in the early hours of 11/03 with Gastroccult positive. Was given a port Protonix bolus and placed on a drip. CT abdomen pelvis demonstrated mild colonic diverticulosis without acute evidence of diverticulitis. Patient received an EGD on 11/03 that demonstrated esophagitis with no bleeding, nonbleeding cratered gastric ulcers, 2 with a visible vessel in the gastric body in the gastric antrum there was successfully injected with 5 mils of epinephrine, electrocautery was used for hemostasis. -Consulted GI following recommendations -Clear liquid diet with antireflux regimen -Use PPI IV daily for 2 days then switch to PPI 40 mg p.o. twice daily for 2 months -Repeat upper Endo in 2 months -Follow H&H RENAL/LYTES - BENEDICT: Likely in the setting of poor perfusion with hypotension on arrival. Support with blood products as well as fluids. -Currently resolving creatinine today 1.34 - No concerns at this time. ENDO - DMII BSGs per unit protocol. On sliding scale HEME - Acute blood loss anemia/Symptomatic anemia: In the setting of GIB while on Coumadin for DVT prevention status post quadriceps repair. Received 2U PRBCs. Received 2U FFP on admission -Hemoglobin is stable at 7.4 -Follow-up coags -Resume heparin 5000 units 3 times daily ID - Infectious diarrheal illness: Presented w/ abd pain, hypotension, tachycardia. Unlikely as the patient has been afebrile, does not have a white count, and does not appear to be sick. Diarrhea likely secondary to GI bleed DC'd Zosyn Stool cultures C. difficile negative H. pylori pending LINES/IV ACCESS - PIVs x3 DVT PROPHYLAXIS - -Resumed heparin today 5000 3 times daily -Follow-up coags -Assuming patient continues on current progress would resume warfarin tomorrow -SCDs Disposition: Transfer to [facility] with telemetry Thank you for allowing me to participate in this patient's care. For additional documentation please see my attending Dr. Ruggiero's accompanying documentation Supervising Physician Co-Signing Physician Notes Dr. Fairchild was resident physician during care of patient. I separately evaluated patient for brooks portions of the history and the exam. I was present during the critical portion of medical decision making, and I discussed the case with the resident. I generally agree with the findings and plan. Patient was discussed in multidisciplinary rounds. I confirmed weightbearing status: Full with wearing splint 14/[address] Trevino. I also discussed the case with the hospitalist service. We will add chemical prophylaxis for DVT today with heparin 5000 3 times daily, he is continuing his acid suppression treatment starting on Carafate. We will progress his diet to clears. Hopefully the next 24 to 48 hours we will be able to slowly let his INR uptrend as orthopedics is hoping to maintain the splint for an additional 10 days and goal INR per orthopedics recommendations would be 1.8-2.2. Certainly this is balancing his gastrointestinal bleeding risk. Stable for downgrade out of the ICU to remote telemetry. Of note overnight he had several desaturations and loud snoring, he likely has undiagnosed COPD we will order a overnight pulse oximetry test. Subjective Patient doing well this morning, no acute distress. Has no pains or complaints. Tolerated procedure well yesterday,Hemoglobin has remained stable status post procedure. Patient is voiding, stooling, advance his diet to clear liquids, and sleeping without issue. Answered all questions, no acute concerns. Plan downgrade to [facility] with telemetry Physical Exam Physical Exam: General: In no acute distress, laying in bed HEENT: Normocephalic atraumatic Neck: Normal visual inspection Cardiac: Regular rate and rhythm, normal S1, normal S2, I did not appreciate any murmurs rubs or gallops negative pedal edema Respiratory: Clear to auscultation bilaterally without wheezes rales or rhonchi GI: Normal bowel sounds tender to palpation MSK: Right lower extremity in cast Skin: Normal visual inspection, warm, dry, intact Neuro: Alert and oriented x4 Psych: Cooperates with examiner a bit talkative Results & Data Vital Signs (Past 12 Hours) Vital Signs Temp Pulse Pulse Resp BP BP Pulse Ox 11/04/18 06:00 72 23 146/62 H 99 11/04/18 05:09 73 75 23 136/58 L 136/58 L 97 11/04/18 04:01 78 18 144/52 H 98 11/04/18 04:00 37.2 C 79 17 90 11/04/18 03:00 68 19 119/51 L 98 11/04/18 02:00 75 19 100/46 L 96 11/04/18 01:00 85 20 136/53 L 69 L 11/04/18 00:00 36.4 C L 126/50 L 99 11/03/18 23:00 125/49 L 96 11/03/18 22:25 77 21 110/53 L 98 11/03/18 22:20 128/52 L 97 11/03/18 22:15 132/53 L 96 11/03/18 22:10 77 19 126/53 L 96 11/03/18 22:05 76 126/63 96 11/03/18 22:00 74 28 H 123/54 L 98 11/03/18 21:55 76 20 130/56 L 96 11/03/18 21:50 67 19 102/45 L 96 11/03/18 21:45 65 22 117/49 L 95 11/03/18 21:40 65 19 113/47 L 96 11/03/18 21:35 67 19 116/48 L 95 11/03/18 21:30 68 19 122/53 L 95 11/03/18 21:25 72 21 130/54 L 96 11/03/18 21:20 73 20 133/56 L 97 11/03/18 21:16 72 21 125/48 L 92 11/03/18 21:10 75 21 124/53 L 99 11/03/18 21:05 77 18 132/59 L 98 11/03/18 21:00 75 24 132/57 L 98 11/03/18 20:55 73 19 133/57 L 98 11/03/18 20:51 76 22 117/78 97 11/03/18 20:36 77 24 103/58 L 100 11/03/18 20:30 77 23 121/75 100 11/03/18 20:25 76 20 123/55 L 100 Laboratory Results 11/04/18 11/04/18 11/04/18 Range/Units 08:48 08:44 08:44 WBC (4.8-10.8) K/uL RBC (4.7-6.1) M/uL Hgb (14.0-18.0) g/dL Hct (42-52) % MCV (80-100) fL MCH (25-34) pg MCHC (32-36) g/dL RDW Std Deviation (36.4-46.3) fL RDW Coeff of Dayo (11.5-14.5) % Plt Count (130-400) K/uL MPV (7.4-10.4) fL PT 11.9 (9.0-12.0) Seconds INR 1.2 H (0.9-1.1) Sodium 147 H (136-145) mmol/L Potassium 4.0 (3.5-5.1) mmol/L Chloride 115 H (98-107) mmol/L Carbon Dioxide 28 (21-32) mmol/L Anion Gap 4.0 (3-11) BUN 50 H (7-18) mg/dl Creatinine 1.38 (0.6-1.4) mg/dl Est Cr Clr Drug Dosing 49.4 ml/min Est GFR ( Amer) 55.6 Est GFR (Non-Af Amer) 47.9 BUN/Creatinine Ratio 36.1 H (10-20) Glucose 136 H (70-99) mg/dl POC Glucose 149 H (70-99) Calcium 7.6 L D (8.5-10.1) mg/dl Phosphorus (2.5-4.9) mg/dl Magnesium (1.8-2.4) mg/dl Troponin I (0-0.045) ng/ml Stl C. diff Tox B Gene (Neg) Blood Type Blood Type Recheck Antibody Screen Crossmatch 11/04/18 11/04/18 11/04/18 Range/Units 05:50 03:58 03:58 WBC 8.78 (4.8-10.8) K/uL RBC 2.55 L (4.7-6.1) M/uL Hgb 7.4 L (14.0-18.0) g/dL Hct 22.5 L (42-52) % MCV 88.2 (80-100) fL MCH 29.0 (25-34) pg MCHC 32.9 (32-36) g/dL RDW Std Deviation 55.3 H (36.4-46.3) fL RDW Coeff of Dayo 17.2 H (11.5-14.5) % Plt Count 207 (130-400) K/uL MPV 7.6 (7.4-10.4) fL PT (9.0-12.0) Seconds INR (0.9-1.1) Sodium (136-145) mmol/L Potassium (3.5-5.1) mmol/L Chloride (98-107) mmol/L Carbon Dioxide (21-32) mmol/L Anion Gap (3-11) BUN (7-18) mg/dl Creatinine (0.6-1.4) mg/dl Est Cr Clr Drug Dosing ml/min Est GFR ( Amer) Est GFR (Non-Af Amer) BUN/Creatinine Ratio (10-20) Glucose (70-99) mg/dl POC Glucose 150 H (70-99) Calcium (8.5-10.1) mg/dl Phosphorus 2.8 (2.5-4.9) mg/dl Magnesium 2.8 H (1.8-2.4) mg/dl Troponin I (0-0.045) ng/ml Stl C. diff Tox B Gene (Neg) Blood Type Blood Type Recheck Antibody Screen Crossmatch 11/03/18 11/03/18 11/03/18 Range/Units 20:56 19:47 17:23 WBC (4.8-10.8) K/uL RBC (4.7-6.1) M/uL Hgb 8.1 L (14.0-18.0) g/dL Hct 24.8 L (42-52) % MCV (80-100) fL MCH (25-34) pg MCHC (32-36) g/dL RDW Std Deviation (36.4-46.3) fL RDW Coeff of Dayo (11.5-14.5) % Plt Count (130-400) K/uL MPV (7.4-10.4) fL PT (9.0-12.0) Seconds INR (0.9-1.1) Sodium (136-145) mmol/L Potassium (3.5-5.1) mmol/L Chloride (98-107) mmol/L Carbon Dioxide (21-32) mmol/L Anion Gap (3-11) BUN (7-18) mg/dl Creatinine (0.6-1.4) mg/dl Est Cr Clr Drug Dosing ml/min Est GFR ( Amer) Est GFR (Non-Af Amer) BUN/Creatinine Ratio (10-20) Glucose (70-99) mg/dl POC Glucose 125 H (70-99) Calcium (8.5-10.1) mg/dl Phosphorus (2.5-4.9) mg/dl Magnesium (1.8-2.4) mg/dl Troponin I 0.134 H* (0-0.045) ng/ml Stl C. diff Tox B Gene (Neg) Blood Type Blood Type Recheck Antibody Screen Crossmatch 11/03/18 11/03/18 11/03/18 Range/Units 17:01 14:44 14:24 WBC (4.8-10.8) K/uL RBC (4.7-6.1) M/uL Hgb (14.0-18.0) g/dL Hct (42-52) % MCV (80-100) fL MCH (25-34) pg MCHC (32-36) g/dL RDW Std Deviation (36.4-46.3) fL RDW Coeff of Dayo (11.5-14.5) % Plt Count (130-400) K/uL MPV (7.4-10.4) fL PT (9.0-12.0) Seconds INR (0.9-1.1) Sodium (136-145) mmol/L Potassium (3.5-5.1) mmol/L Chloride (98-107) mmol/L Carbon Dioxide (21-32) mmol/L Anion Gap (3-11) BUN (7-18) mg/dl Creatinine (0.6-1.4) mg/dl Est Cr Clr Drug Dosing ml/min Est GFR ( Amer) Est GFR (Non-Af Amer) BUN/Creatinine Ratio (10-20) Glucose (70-99) mg/dl POC Glucose 91 90 87 (70-99) Calcium (8.5-10.1) mg/dl Phosphorus (2.5-4.9) mg/dl Magnesium (1.8-2.4) mg/dl Troponin I (0-0.045) ng/ml Stl C. diff Tox B Gene (Neg) Blood Type Blood Type Recheck Antibody Screen Crossmatch 11/03/18 11/03/18 11/03/18 Range/Units 14:02 13:40 13:20 WBC (4.8-10.8) K/uL RBC (4.7-6.1) M/uL Hgb (14.0-18.0) g/dL Hct (42-52) % MCV (80-100) fL MCH (25-34) pg MCHC (32-36) g/dL RDW Std Deviation (36.4-46.3) fL RDW Coeff of Dayo (11.5-14.5) % Plt Count (130-400) K/uL MPV (7.4-10.4) fL PT (9.0-12.0) Seconds INR (0.9-1.1) Sodium (136-145) mmol/L Potassium (3.5-5.1) mmol/L Chloride (98-107) mmol/L Carbon Dioxide (21-32) mmol/L Anion Gap (3-11) BUN (7-18) mg/dl Creatinine (0.6-1.4) mg/dl Est Cr Clr Drug Dosing ml/min Est GFR ( Amer) Est GFR (Non-Af Amer) BUN/Creatinine Ratio (10-20) Glucose (70-99) mg/dl POC Glucose 92 83 94 (70-99) Calcium (8.5-10.1) mg/dl Phosphorus (2.5-4.9) mg/dl Magnesium (1.8-2.4) mg/dl Troponin I (0-0.045) ng/ml Stl C. diff Tox B Gene (Neg) Blood Type Blood Type Recheck Antibody Screen Crossmatch 11/03/18 11/03/18 11/03/18 Range/Units 13:17 13:17 13:03 WBC (4.8-10.8) K/uL RBC (4.7-6.1) M/uL Hgb 6.9 L* (14.0-18.0) g/dL Hct 20.7 L* (42-52) % MCV (80-100) fL MCH (25-34) pg MCHC (32-36) g/dL RDW Std Deviation (36.4-46.3) fL RDW Coeff of Dayo (11.5-14.5) % Plt Count (130-400) K/uL MPV (7.4-10.4) fL PT (9.0-12.0) Seconds INR (0.9-1.1) Sodium (136-145) mmol/L Potassium (3.5-5.1) mmol/L Chloride (98-107) mmol/L Carbon Dioxide (21-32) mmol/L Anion Gap (3-11) BUN (7-18) mg/dl Creatinine (0.6-1.4) mg/dl Est Cr Clr Drug Dosing ml/min Est GFR ( Amer) Est GFR (Non-Af Amer) BUN/Creatinine Ratio (10-20) Glucose (70-99) mg/dl POC Glucose 84 (70-99) Calcium (8.5-10.1) mg/dl Phosphorus (2.5-4.9) mg/dl Magnesium (1.8-2.4) mg/dl Troponin I (0-0.045) ng/ml Stl C. diff Tox B Gene (Neg) Blood Type Blood Type Recheck A Negative Antibody Screen Crossmatch 11/03/18 11/03/18 11/03/18 Range/Units 12:49 12:30 11:31 WBC (4.8-10.8) K/uL RBC (4.7-6.1) M/uL Hgb (14.0-18.0) g/dL Hct (42-52) % MCV (80-100) fL MCH (25-34) pg MCHC (32-36) g/dL RDW Std Deviation (36.4-46.3) fL RDW Coeff of Dayo (11.5-14.5) % Plt Count (130-400) K/uL MPV (7.4-10.4) fL PT (9.0-12.0) Seconds INR (0.9-1.1) Sodium (136-145) mmol/L Potassium (3.5-5.1) mmol/L Chloride (98-107) mmol/L Carbon Dioxide (21-32) mmol/L Anion Gap (3-11) BUN (7-18) mg/dl Creatinine (0.6-1.4) mg/dl Est Cr Clr Drug Dosing ml/min Est GFR ( Amer) Est GFR (Non-Af Amer) BUN/Creatinine Ratio (10-20) Glucose (70-99) mg/dl POC Glucose 90 98 161 H (70-99) Calcium (8.5-10.1) mg/dl Phosphorus (2.5-4.9) mg/dl Magnesium (1.8-2.4) mg/dl Troponin I (0-0.045) ng/ml Stl C. diff Tox B Gene (Neg) Blood Type Blood Type Recheck Antibody Screen Crossmatch 11/03/18 11/03/18 11/03/18 Range/Units 10:59 10:10 09:25 WBC (4.8-10.8) K/uL RBC (4.7-6.1) M/uL Hgb (14.0-18.0) g/dL Hct (42-52) % MCV (80-100) fL MCH (25-34) pg MCHC (32-36) g/dL RDW Std Deviation (36.4-46.3) fL RDW Coeff of Dayo (11.5-14.5) % Plt Count (130-400) K/uL MPV (7.4-10.4) fL PT (9.0-12.0) Seconds INR (0.9-1.1) Sodium (136-145) mmol/L Potassium (3.5-5.1) mmol/L Chloride (98-107) mmol/L Carbon Dioxide (21-32) mmol/L Anion Gap (3-11) BUN (7-18) mg/dl Creatinine (0.6-1.4) mg/dl Est Cr Clr Drug Dosing ml/min Est GFR ( Amer) Est GFR (Non-Af Amer) BUN/Creatinine Ratio (10-20) Glucose (70-99) mg/dl POC Glucose 191 H (70-99) Calcium (8.5-10.1) mg/dl Phosphorus (2.5-4.9) mg/dl Magnesium (1.8-2.4) mg/dl Troponin I 0.147 H* (0-0.045) ng/ml Stl C. diff Tox B Gene Negative Cdiff Gene (Neg) Blood Type Blood Type Recheck Antibody Screen Crossmatch 11/02/18 Range/Units 22:57 WBC (4.8-10.8) K/uL RBC (4.7-6.1) M/uL Hgb (14.0-18.0) g/dL Hct (42-52) % MCV (80-100) fL MCH (25-34) pg MCHC (32-36) g/dL RDW Std Deviation (36.4-46.3) fL RDW Coeff of Dayo (11.5-14.5) % Plt Count (130-400) K/uL MPV (7.4-10.4) fL PT (9.0-12.0) Seconds INR (0.9-1.1) Sodium (136-145) mmol/L Potassium (3.5-5.1) mmol/L Chloride (98-107) mmol/L Carbon Dioxide (21-32) mmol/L Anion Gap (3-11) BUN (7-18) mg/dl Creatinine (0.6-1.4) mg/dl Est Cr Clr Drug Dosing ml/min Est GFR ( Amer) Est GFR (Non-Af Amer) BUN/Creatinine Ratio (10-20) Glucose (70-99) mg/dl POC Glucose (70-99) Calcium (8.5-10.1) mg/dl Phosphorus (2.5-4.9) mg/dl Magnesium (1.8-2.4) mg/dl Troponin I (0-0.045) ng/ml Stl C. diff Tox B Gene (Neg) Blood Type A Negative Blood Type Recheck Antibody Screen NEGATIVE Crossmatch See Detail Medications Administered Current Inpatient Medications Dextrose (Dextrose 50%) 25 - 50 ml IV UD PRN; Protocol PRN Reason: Hypoglycemia Protocol Stop: 12/03/18 08:44 Glucagon (Glucagen) 1 mg IM UD PRN; Protocol PRN Reason: Hypoglycemia Protocol Stop: 12/03/18 08:44 Glucose (Glucose 40%) 15 - 30 gm PO UD PRN; Protocol PRN Reason: Hypoglycemia Protocol Stop: 12/03/18 08:44 Glucose (Dex4 Glucose) 4 - 8 tabs PO UD PRN; Protocol PRN Reason: Hypoglycemia Protocol Stop: 12/03/18 08:44 Heparin Sodium (Porcine) (Heparin Sodium (Porcine)) 5,000 units SQ Q8 LES Stop: 12/04/18 13:59 Pantoprazole Sodium 40 mg/ (Dextrose) 100 mls @ 20 mls/hr IV Q5H LES Stop: 12/03/18 01:59 Last Admin: 11/04/18 09:21 Dose: 20 mls/hr Documented by: Sodium Chloride (Nss) 250 mls @ 15 mls/hr IV .[id number] PRN PRN Reason: For Transfusion Stop: 12/03/18 02:49 Parenteral Electrolytes (Normosol-R) 1,000 mls @ 125 mls/hr IV .Q8H LES Stop: 12/03/18 08:29 Last Admin: 11/04/18 04:54 Dose: 125 mls/hr Documented by: Sodium Chloride (Nss) 250 mls @ 15 mls/hr IV .[id number] PRN PRN Reason: For Transfusion Stop: 12/03/18 13:40 Insulin Aspart (Novolog Flexpen) 0 units SC ACHS LES Stop: 12/03/18 20:59 Last Admin: 11/04/18 05:52 Dose: Not Given Documented by: Miscellaneous (Icu Protocol For Hyperglycemia) 1 ea N/A PRN PRN; Protocol PRN Reason: Hyperglycemia Protocol Stop: 11/05/18 01:43 Miscellaneous (Carbohydrates For Hypoglycemia) 15 - 30 gm PO UD PRN PRN Reason: Hypoglycemia Treatment Stop: 12/03/18 08:44 Sucralfate (Carafate) 1 gm PO QID LES Stop: 12/03/18 20:59 Last Admin: 11/04/18 08:51 Dose: 1 gm Documented by: PG Care Time/CCT Total # of Minutes Spent Total Time Spent with Patient: Total time spent is greater than 50% in coordination of care (as documented) at patient's floor/unit and/or counseling patient: Resident Activity Tracking Resident Involvement: Resident Care Provided Care Provided: Adult Hospital Medicine (ICU GIB)
[2018-11-04] MEDS ORDERED: ACETAMINOPHEN 500 MG TAB PO ONE (13:32)
[2018-11-04] MEDS ORDERED: ACETAMINOPHEN 500 MG TAB ONE (13:35)
[2018-11-04] MEDS: SODIUM CHLORIDE 0.45 % 1,000 ML IV SCH (13:36)
[2018-11-04] MEDS: HEPARIN SOD 5,000 UNIT/0.5 ML VIAL SQ SCH ×2 (13:37→21:11)
[2018-11-04] MEDS ORDERED: Nursing to Pharmacy Communication ONE (16:04)
[2018-11-04 18:05] LABS: Hemoglobin 7.4 g/dL (14.0-18.0)
[2018-11-05] MEDS: PANTOprazole 40 MG in DEXTROSE 5% 100 ML IV SCH ×5 (01:53→20:12)
[2018-11-05] MEDS: SODIUM CHLORIDE 0.45 % 1,000 ML IV SCH (01:53)
[2018-11-05] MEDS: HEPARIN SOD 5,000 UNIT/0.5 ML VIAL SQ SCH ×3 (05:54→22:05)
[2018-11-05 06:59] LABS: Hematocrit (blood only) 22.8 % (42-52); Hemoglobin 7.3 g/dL (14.0-18.0)
[2018-11-05 07:37] LABS: Potassium 3.7 mmol/L (3.5-5.1)
[2018-11-05 07:38] LABS: Calcium 7.7 mg/dl (8.5-10.1); Creatinine Clr Calc Pharmacy 63.6 ml/min; Est GFR (African American) 72.3; Est GFR (Non-African American) 62.4
[2018-11-05] MEDS: SUCRALFATE 1 GM/10 ML UDC PO SCH ×4 (09:23→20:12)
[2018-11-05] MEDS: INSULIN ASPART 100 UNITS/ML 3 ML PEN SC SCH ×4 (09:24→22:05)
[2018-11-05] MEDS: LISINOPRIL 10 MG TAB PO SCH (12:56)
[2018-11-05 17:16] LABS: Hemoglobin 7.2 g/dL (14.0-18.0)
[2018-11-05] MEDS ORDERED: SODIUM CHLORIDE 0.9% 250 ML IV PRN (18:28)
--- NOTE | 2018-11-05 20:17 | Hospitalist Progress Note ---
Date of Service November 05, 2018 Assessment & Plan (1) Upper GI bleedinnd gastric ulcers (including 1 with visible vessel) and esophagitis as seen on EGD done several days ago. This is in the setting of recent asa and coumadin use s/p right quadriceps tendon repair in late September. s/p 3 units PRBCs since admission and 2 units FFP due to therapeutic INR from coumadin at presentation. Has completed 48 hours of PPI drip. Stop such today; transition to PO PPI bid. Advance diet to full liquids today. Hb 7.2 -- tx 1 additional unit of PRBCs tonight. CBC am. (2) Acute kidney injury: 2nd to hypotension/acute GI bleeding at presentation - resolved. BMP am. (3) Acute blood loss anemia: 2nd to upper GI bleeding/ulcers/esophagitis. Hb 7.2 today -- Tx 1 additional unit PRBCs. Start iron in am. CBC in am. (4) Gastric ulcer with hemorrhage: H pylori stool ag pending. PPI twice daily. Start fe supplementation. (5) Esophagitis: PPI (6) Hypotension: resolved. (7) Syncope: 2nd to hypotension in setting of GI bleeding. (8) Hypertension: resume lisinopril today and titrate (9) Diabetes mellitus: pharmacy glycemic management appreciated defer management to them (10) Patellar tendon rupture: RIGHT. s/p repair - Dr Trevino - September 2018. cont immobilizer WBAT to RLE with immobilizer on at all times stop bedrest order PT, OT (11) BPH (benign prostatic hyperplasia): no issues resume finasteride (12) DVT prophylaxis: SCDs SC heparin due to high risk of DVT in setting of recent ortho surgery resume coumadin tomorrow Pt, Ot evals pending patient REALLY WOULD BENEFIT FROM REHAB post-dc he is ADAMANTLY REFUSING SUCH Subjective denies any abdominal pain, nausea, emesis, intolerance to full liquids still upset about issues ongoing w/ his daughter and, like yesterday, he is ADAMANT he is going home regardless of any one's recommendations (PT, OT, physicians, etc) for rehab tele stable (NSR) Review of Systems Respiratory: no cough and no dyspnea Cardiovascular: no chest pain Gastrointestinal: + melena; no abdominal pain, no nausea and no vomiting Musculoskeletal: mild right leg pain Physical Exam Constitutional: no acute distress and no altered mental status ENMT: external ear and nose normal, oropharynx normal Respiratory: normal respiratory effort, lungs clear to auscultation Cardiovascular: Rate/Rhythm: regular rate and regular rhythm Heart Sounds: normal S1 and normal S2; no murmur Vessels: posterior tibial pulses present and dorsalis pedis pulses present; no JVD Extremities: no edema Gastrointestinal (Abdomen): normal bowel sounds, soft, nontender, no hepatosplenomegaly Musculoskeletal: immobilizer in place - RLE - no change Skin: + pallor Psychiatric: Orientation: alert and oriented x 3 Affect: + irritable affect Results & Data Vital Signs (Past 12 Hours) Vital Signs Temp Pulse Pulse Pulse Resp BP Pulse Ox 11/05/18 19:44 36.8 C 80 20 162/71 H 96 11/05/18 15:14 36.8 C 90 20 152/68 H 97 11/05/18 15:11 70 11/05/18 12:00 36.3 C L 78 18 178/72 H 98 Laboratory Results Laboratory Results - last 24 hr 11/02/18 11/04/18 11/05/18 22:57 20:14 06:22 Hgb 7.3 L Hct 22.8 L Sodium Potassium Chloride Carbon Dioxide Anion Gap BUN Creatinine Est Cr Clr Drug Dosing Est GFR ( Amer) Est GFR (Non-Af Amer) BUN/Creatinine Ratio Glucose POC Glucose 180 H Calcium Stool H. pylori Ag Blood Type Antibody Screen Crossmatch See Detail 11/05/18 11/05/18 11/05/18 06:22 13:04 13:45 Hgb Hct Sodium 145 Potassium 3.7 Chloride 114 H Carbon Dioxide 27 Anion Gap 4.0 BUN 33 H Creatinine 1.11 Est Cr Clr Drug Dosing 63.6 Est GFR ( Amer) 72.3 Est GFR (Non-Af Amer) 62.4 BUN/Creatinine Ratio 30.0 H Glucose 118 H POC Glucose 194 H Calcium 7.7 L Stool H. pylori Ag Pending Blood Type Antibody Screen Crossmatch 11/05/18 11/05/18 11/05/18 16:40 16:47 18:59 Hgb 7.2 L Hct 22.0 L Sodium Potassium Chloride Carbon Dioxide Anion Gap BUN Creatinine Est Cr Clr Drug Dosing Est GFR ( Amer) Est GFR (Non-Af Amer) BUN/Creatinine Ratio Glucose POC Glucose 118 H Calcium Stool H. pylori Ag Blood Type A Negative Antibody Screen NEGATIVE Crossmatch See Detail PG Care Time/CCT Total # of Minutes Spent Total Time Spent with Patient: Total time spent is greater than 50% in coordination of care (as documented) at patient's floor/unit and/or counseling patient: (1) BPH (benign prostatic hyperplasia) Lower urinary tract symptom presence: symptoms absent Qualified Code(s): N40.0 - Benign prostatic hyperplasia without lower urinary tract symptoms (2) Diabetes mellitus Diabetes mellitus complication status: without complication Diabetes mellitus fci insulin use: without fci use Diabetes mellitus type: type 2 Qualified Code(s): E11.9 - Type 2 diabetes mellitus without complications (3) Syncope Syncope type: unspecified Qualified Code(s): R55 - Syncope and collapse (4) Gastric ulcer with hemorrhage Gastric ulcer chronicity: acute Qualified Code(s): K25.0 - Acute gastric ulcer with hemorrhage (5) Hypertension Hypertension type: essential hypertension Qualified Code(s): I10 - Essential (primary) hypertension (6) Hypotension Hypotension type: other hypotension type Qualified Code(s): I95.89 - Other hypotension (7) Patellar tendon rupture Encounter type: subsequent encounter Laterality: right Qualified Code(s): S86.811D - Strain of other muscle(s) and tendon(s) at lower leg level, right leg, subsequent encounter
[2018-11-05] MEDS: PANTOprazole 40 MG TAB PO SCH (21:58)
[2018-11-05] MEDS ORDERED: SIMETHICONE 80 MG CHEW PO PRN (22:50)
[2018-11-06] MEDS: HEPARIN SOD 5,000 UNIT/0.5 ML VIAL SQ SCH ×3 (05:41→21:58)
[2018-11-06 06:43] LABS: Hemoglobin 8.8 g/dL (14.0-18.0); Mean Corpuscular Hemoglobin 29.6 pg (25-34); Mean Corpuscular Hgb Conc 32.6 g/dL (32-36); Mean Corpuscular Volume 90.9 fL (80-100); Mean Platelet Volume 8.9 fL (7.4-10.4); Platelet Count 235 K/uL (130-400); RDW Coefficient of Variation 16.1 % (11.5-14.5); RDW Standard Deviation 51.1 fL (36.4-46.3); Red Blood Count 2.97 M/uL (4.7-6.1)
[2018-11-06 07:30] LABS: BUN Creatinine Ratio 15.5 (10-20); Calcium 7.9 mg/dl (8.5-10.1); Creatinine Clr Calc Pharmacy 66.5 ml/min; Est GFR (African American) 76.4; Potassium 3.7 mmol/L (3.5-5.1)
[2018-11-06] MEDS: SUCRALFATE 1 GM/10 ML UDC PO SCH ×4 (08:22→20:32)
[2018-11-06] MEDS: LISINOPRIL 10 MG TAB PO SCH (08:22)
[2018-11-06] MEDS: PANTOprazole 40 MG TAB PO SCH ×2 (08:23→20:32)
[2018-11-06] MEDS: INSULIN ASPART 100 UNITS/ML 3 ML PEN SC SCH ×4 (08:27→20:41)
[2018-11-06] MEDS ORDERED: LISINOPRIL 10 MG TAB PO ONE (09:26)
[2018-11-06] MEDS: FINASTERIDE 5 MG TAB PO SCH (10:15)
[2018-11-06] MEDS: FERROUS SULFATE 325 MG TAB PO SCH ×2 (10:15→16:23)
--- NOTE | 2018-11-06 19:48 | Hospitalist Progress Note ---
Date of Service November 06, 2018 Assessment & Plan (1) Upper GI bleedinnd gastric ulcers (including 1 with visible vessel) and esophagitis as seen on EGD done several days ago. This was in the setting of recent asa and coumadin use s/p right quadriceps tendon repair in late September. s/p 4 units PRBCs since admission and 2 units FFP due to therapeutic INR from coumadin at presentation. s/p 48 hours of PPI drip. Now on PO PPI bid. Advance diet to regular today. Hb 8.8 following 1 unit PRBCs last pm. CBC in am for stability. (2) Acute kidney injury: 2nd to hypotension/acute GI bleeding at presentation - resolved. BMP today stable. (3) Acute blood loss anemia: 2nd to upper GI bleeding/ulcers/esophagitis. Start ferrous sulfate 325mg BID. CBC in am. (4) Gastric ulcer with hemorrhage: H pylori stool ag pending. PPI twice daily. Start fe supplementation today. (5) Esophagitis: PPI (6) Hypotension: resolved. (7) Syncope: 2nd to hypotension in setting of GI bleeding. Has not recurred. (8) Hypertension: Despite titration of lisinopril to 20mg daily his BPs are still high. Will add amlodipine 5mg HS. Follow. Would not restart HCTZ at this time. (9) Diabetes mellitus: pharmacy glycemic management appreciated defer management to them control acceptable (10) Patellar tendon rupture: RIGHT. s/p repair - Dr Trevino - September 2018. cont immobilizer WBAT to RLE with immobilizer on at all times PT, OT desperately needs rehab -- see below (11) BPH (benign prostatic hyperplasia): no issues cont finasteride (12) DVT prophylaxis: SCDs SC heparin due to high risk of DVT in setting of recent ortho surgery was on coumadin at time of admission - this was being use for DVT proph in the setting of prior right knee surgery could continue SC heparin if he does agree to rehab if he goes home as he desires would resume coumadin will wait until tomorrow to make this decision Pt, Ot petraals appreciated I COUNSELED THE PATIENT TODAY HE IS UNSAFE FROM THERAPY/NURSING/PHYSICIAN STANDPOINT TO RETURN HOME HE NEEDS REHAB STILL REFUSING TO GO ANYWHERE BUT HOME I TOLD HIM TODAY THAT HE IS AT RISK OF NOT DOING WELL AT HOME, FALLS, INJURY, ETC cont dispo planning on Wednesday Subjective tele stable overnight. patient received unit of PRBCs overnight and did well with such. feels good today. no GI symptoms/complaints. worked with PT/OT - did very poorly, max assist for much of both sessions. patient still ADAMANT ABOUT RETURNING HOME; DOES NOT WANT TO CONSIDER REHAB AT ANY LOCATION. Review of Systems Constitutional: no fever Respiratory: no cough and no dyspnea Cardiovascular: no chest pain Gastrointestinal: no abdominal pain, no nausea, no vomiting and no constipation Physical Exam Constitutional: no acute distress and no altered mental status ENMT: external ear and nose normal, oropharynx normal Respiratory: normal respiratory effort, lungs clear to auscultation Cardiovascular: Rate/Rhythm: regular rate and regular rhythm Heart Sounds: normal S1 and normal S2; no murmur Vessels: posterior tibial pulses present and dorsalis pedis pulses present; no JVD Extremities: no edema Gastrointestinal (Abdomen): normal bowel sounds, soft, nontender, no hepatosplenomegaly Musculoskeletal: right leg/knee in immobilizer Psychiatric: Orientation: alert and oriented x 3 Results & Data Vital Signs (Past 12 Hours) Vital Signs Temp Pulse Pulse Resp BP Pulse Ox 11/06/18 16:51 71 11/06/18 16:00 36.8 C 71 18 164/71 H 96 11/06/18 11:35 36.5 C 68 20 175/71 H 96 11/06/18 08:49 67 11/06/18 08:35 36.7 C 66 18 157/62 H Laboratory Results Laboratory Results - last 24 hr 11/02/18 11/05/18 11/05/18 22:57 18:59 20:08 WBC RBC Hgb Hct MCV MCH MCHC RDW Std Deviation RDW Coeff of Dayo Plt Count MPV Sodium Potassium Chloride Carbon Dioxide Anion Gap BUN Creatinine Est Cr Clr Drug Dosing Est GFR ( Amer) Est GFR (Non-Af Amer) BUN/Creatinine Ratio Glucose POC Glucose 164 H Calcium Blood Type A Negative Antibody Screen NEGATIVE Crossmatch See Detail See Detail 11/06/18 11/06/18 11/06/18 05:29 05:29 07:50 WBC 5.70 RBC 2.97 L Hgb 8.8 L Hct 27.0 L MCV 90.9 MCH 29.6 MCHC 32.6 RDW Std Deviation 51.1 H RDW Coeff of Dayo 16.1 H Plt Count 235 MPV 8.9 Sodium 147 H Potassium 3.7 Chloride 114 H Carbon Dioxide 27 Anion Gap 5.0 BUN 16 D Creatinine 1.06 Est Cr Clr Drug Dosing 66.5 Est GFR ( Amer) 76.4 Est GFR (Non-Af Amer) 66.0 BUN/Creatinine Ratio 15.5 Glucose 116 H POC Glucose 135 H Calcium 7.9 L Blood Type Antibody Screen Crossmatch 11/06/18 11/06/18 11:38 16:29 WBC RBC Hgb Hct MCV MCH MCHC RDW Std Deviation RDW Coeff of Dayo Plt Count MPV Sodium Potassium Chloride Carbon Dioxide Anion Gap BUN Creatinine Est Cr Clr Drug Dosing Est GFR ( Amer) Est GFR (Non-Af Amer) BUN/Creatinine Ratio Glucose POC Glucose 151 H 155 H Calcium Blood Type Antibody Screen Crossmatch PG Care Time/CCT Total # of Minutes Spent Total Time Spent with Patient: Total time spent is greater than 50% in coordination of care (as documented) at patient's floor/unit and/or counseling patient: (1) BPH (benign prostatic hyperplasia) Lower urinary tract symptom presence: symptoms absent Qualified Code(s): N40.0 - Benign prostatic hyperplasia without lower urinary tract symptoms (2) Diabetes mellitus Diabetes mellitus complication status: without complication Diabetes mellitus submarine element coordinator insulin use: without submarine element coordinator use Diabetes mellitus type: type 2 Qualified Code(s): E11.9 - Type 2 diabetes mellitus without complications (3) Syncope Syncope type: unspecified Qualified Code(s): R55 - Syncope and collapse (4) Gastric ulcer with hemorrhage Gastric ulcer chronicity: acute Qualified Code(s): K25.0 - Acute gastric ulcer with hemorrhage (5) Hypertension Hypertension type: essential hypertension Qualified Code(s): I10 - Essential (primary) hypertension (6) Hypotension Hypotension type: other hypotension type Qualified Code(s): I95.89 - Other hypotension (7) Patellar tendon rupture Encounter type: subsequent encounter Laterality: right Qualified Code(s): S86.811D - Strain of other muscle(s) and tendon(s) at lower leg level, right leg, subsequent encounter
[2018-11-06] MEDS: AMLODIPINE BESYLATE 5 MG TAB PO SCH (20:35)
[2018-11-07] MEDS: HEPARIN SOD 5,000 UNIT/0.5 ML VIAL SQ SCH ×3 (06:05→20:36)
[2018-11-07 07:43] LABS: BUN Creatinine Ratio 11.8 (10-20); Calcium 8.3 mg/dl (8.5-10.1); Creatinine Clr Calc Pharmacy 68.5 ml/min; Est GFR (African American) 80.1; Est GFR (Non-African American) 69.1; Potassium 3.5 mmol/L (3.5-5.1)
[2018-11-07] MEDS: SUCRALFATE 1 GM/10 ML UDC PO SCH ×4 (07:49→20:08)
[2018-11-07] MEDS: PANTOprazole 40 MG TAB PO SCH ×2 (07:49→20:08)
[2018-11-07] MEDS: FERROUS SULFATE 325 MG TAB PO SCH ×2 (07:49→16:23)
[2018-11-07] MEDS: FINASTERIDE 5 MG TAB PO SCH (07:49)
[2018-11-07] MEDS: LISINOPRIL 20 MG TAB PO SCH (07:50)
[2018-11-07] MEDS: INSULIN ASPART 100 UNITS/ML 3 ML PEN SC SCH ×4 (07:53→20:36)
[2018-11-07] MEDS ORDERED: MICONAZOLE NITRATE POWDER 43 GM EXT PRN (08:41)
--- NOTE | 2018-11-07 15:33 | Orthopedic Progress Note ---
Date of Service November 07, 2018 Assessment & Plan (1) S/P knee surgery: Awaiting insurance determination for [facility] placement. Progress with physical therapy as strength and comfort dictate Keep the cast and immobilizer on at all times. Continue anticoagulation with either heparin subcu or oral Coumadin. If using oral Coumadin, INR should be no greater than 2.0. Follow-up in the office on November [address] Trevino at 9:15am for reexamination Subjective Patient is seen in his room today. He is sitting up. He appears happy. He states he did participate in physical therapy today. He realized that his left leg is weaker than what he thought. He denies any abdominal pain. No right leg pain. He is agreeable to going to [facility] for rehab at this point. No other complaints. Physical Exam Physical Exam: Right leg has intact cylindrical cast and knee immobilizer. No areas of abrasion visible at the ends of the cast. Distal end is well-padded. Intact motor function of the ankle and toes. Neurologic: Gross sensation is intact across the lower extremities by soft touch. Peripheral pulses are 2+. Results & Data Vital Signs (Past 12 Hours) Vital Signs Temp Pulse Pulse Resp BP BP Pulse Ox 11/07/18 11:19 36.9 C 68 20 164/68 H 94 11/07/18 07:23 68 11/07/18 07:00 36.6 C 66 20 177/73 H 96 11/07/18 03:37 36.6 C 70 20 132/68 96 Laboratory Results Hemoglobin today is 9.5.
--- NOTE | 2018-11-07 17:22 | Hospitalist Progress Note ---
Date of Service November 07, 2018 Assessment & Plan (1) Upper GI bleedinnd gastric ulcers (including 1 with visible vessel) and esophagitis as seen on EGD done several days ago. This was in the setting of recent asa and coumadin use s/p right quadriceps tendon repair in late September. s/p 4 units PRBCs since admission and 2 units FFP due to therapeutic INR from coumadin at presentation. s/p 48 hours of PPI drip. Now on PO PPI bid. tolerating diet Hb up to 9.5 from 8.8, continue to follow (2) Acute kidney injury: 2nd to hypotension/acute GI bleeding at presentation - resolved. BMP shows Cr of 1.0, making adequate urine (3) Acute blood loss anemia: 2nd to upper GI bleeding/ulcers/esophagitis. Start ferrous sulfate 325mg BID. Hb up to 9.5 s/p 4 units PRBC this admission (4) Gastric ulcer with hemorrhage: H pylori stool ag pending. PPI twice daily. Start fe supplementation today. (5) Esophagitis: PPI (6) Hypotension: resolved. (7) Syncope: 2nd to hypotension in setting of GI bleeding. Has not recurred. (8) Hypertension: Despite titration of lisinopril to 20mg daily his BPs are still high. Will add amlodipine 5mg HS. Follow. Would not restart HCTZ at this time. (9) Diabetes mellitus: pharmacy glycemic management appreciated defer management to them control acceptable (10) Patellar tendon rupture: RIGHT. s/p repair - Dr Trevino - September 2018. cont immobilizer WBAT to RLE with immobilizer on at all times PT, OT he is agreeing to rehab (11) BPH (benign prostatic hyperplasia): no issues cont finasteride (12) DVT prophylaxis: SCDs SC heparin due to high risk of DVT in setting of recent ortho surgery was on coumadin at time of admission - this was being use for DVT proph in the setting of prior right knee surgery Subjective patient eating well, no melena, no vomiting, no abdominal pain discussed going to rehab he is more open to idea today he had PT evaluation and realized how weak his good leg has become CM will discuss with patient checked labs, Hb up to 9.5 from 8.8, BMP normal Review of Systems Review of Systems: All systems reviewed & are unremarkable except as noted in HPI & below Musculoskeletal: + stiffness, + myalgia and + muscle weakness (bilaterally, more in right leg with immobilization); no back pain Physical Exam Constitutional: WD/WN, vitals as above Eyes: PERRL, conjunctivae normal, anicteric sclerae ENMT: external ear and nose normal, oropharynx normal Neck: trachea midline, no thyromegaly Respiratory: normal respiratory effort, lungs clear to auscultation Cardiovascular: RRR, no murmur, no edema Gastrointestinal (Abdomen): normal bowel sounds, soft, nontender, no hepatosplenomegaly Musculoskeletal: Head/Neck/Chest: normocephalic and head atraumatic Extremities: + limited ROM of extremities and + abnormal strength (weak in left leg); + extremities abnormal to inspection (right leg in immobilizer) Skin: no rashes, warm and dry Neurologic: patellar DTR's 2+ bilat, sensation intact and PERRL, EOMI, accommodation nl, no face palsy, no dysarthria Psychiatric: A+Ox3, euthymic affect Lymphatic: no cervical or axillary lymphadenopathy Results & Data Vital Signs (Past 12 Hours) Vital Signs Temp Pulse Pulse Resp BP BP Pulse Ox 11/07/18 16:03 64 11/07/18 15:29 36.8 C 67 18 151/77 H 97 11/07/18 11:19 36.9 C 68 20 164/68 H 94 11/07/18 07:23 68 11/07/18 07:00 36.6 C 66 20 177/73 H 96 Laboratory Results Laboratory Results - last 24 hr 11/06/18 11/07/18 11/07/18 20:18 06:47 06:47 Hgb 9.5 L Sodium 145 Potassium 3.5 Chloride 110 H Carbon Dioxide 28 Anion Gap 6.0 BUN 12 Creatinine 1.02 Est Cr Clr Drug Dosing 68.5 Est GFR ( Amer) 80.1 Est GFR (Non-Af Amer) 69.1 BUN/Creatinine Ratio 11.8 Glucose 120 H POC Glucose 143 H Calcium 8.3 L 11/07/18 11/07/18 11/07/18 07:31 11:54 16:28 Hgb Sodium Potassium Chloride Carbon Dioxide Anion Gap BUN Creatinine Est Cr Clr Drug Dosing Est GFR ( Amer) Est GFR (Non-Af Amer) BUN/Creatinine Ratio Glucose POC Glucose 143 H 178 H 155 H Calcium Medications Administered Current Inpatient Medications Amlodipine Besylate (Norvasc) 5 mg PO HS [facility] Stop: 12/06/18 20:59 Last Admin: 11/06/18 20:35 Dose: 5 mg Documented by: Dextrose (Dextrose 50%) 25 - 50 ml IV UD PRN; Protocol PRN Reason: Hypoglycemia Protocol Stop: 12/03/18 08:44 Ferrous Sulfate (Feosol) 325 mg PO BIDM [facility]ES Stop: 12/06/18 09:44 Last Admin: 11/07/18 16:23 Dose: 325 mg Documented by: Finasteride (Proscar) 5 mg PO QAM [facility] Stop: 12/06/18 09:59 Last Admin: 11/07/18 07:49 Dose: 5 mg Documented by: Glucagon (Glucagen) 1 mg IM UD PRN; Protocol PRN Reason: Hypoglycemia Protocol Stop: 12/03/18 08:44 Glucose (Glucose 40%) 15 - 30 gm PO UD PRN; Protocol PRN Reason: Hypoglycemia Protocol Stop: 12/03/18 08:44 Glucose (Dex4 Glucose) 4 - 8 tabs PO UD PRN; Protocol PRN Reason: Hypoglycemia Protocol Stop: 12/03/18 08:44 Heparin Sodium (Porcine) (Heparin Sodium (Porcine)) 5,000 units SQ Q8 [facility] Stop: 12/04/18 13:59 Last Admin: 11/07/18 14:01 Dose: 5,000 units Documented by: Sodium Chloride (Nss) 250 mls @ 15 mls/hr IV .[id number] PRN PRN Reason: For Transfusion Stop: 12/05/18 18:27 Insulin Aspart (Novolog Flexpen) 0 units SC ACHS [facility] Stop: 12/03/18 20:59 Last Admin: 11/07/18 17:08 Dose: 2 units Documented by: Lisinopril (Zestril) 20 mg PO QAM [facility] Stop: 12/07/18 08:59 Last Admin: 11/07/18 07:50 Dose: 20 mg Documented by: Miconazole Nitrate (Desenex) 1 appln EXT PRN PRN PRN Reason: Affected Skin Folds Stop: 12/07/18 08:40 Miscellaneous (Carbohydrates For Hypoglycemia) 15 - 30 gm PO UD PRN PRN Reason: Hypoglycemia Treatment Stop: 12/03/18 08:44 Pantoprazole Sodium (Protonix) 40 mg PO BID [facility] Stop: 12/05/18 20:59 Last Admin: 11/07/18 07:49 Dose: 40 mg Documented by: Simethicone (Mylicon) 80 mg PO Q6H PRN PRN Reason: Flatulence Stop: 12/05/18 22:49 Sucralfate (Carafate) 1 gm PO QID [facility] Stop: 12/03/18 20:59 Last Admin: 11/07/18 16:23 Dose: 1 gm Documented by: PG Care Time/CCT Total # of Minutes Spent Total Time Spent with Patient: Total time spent is greater than 50% in coordination of care (as documented) at patient's floor/unit and/or counseling patient: (1) BPH (benign prostatic hyperplasia) Lower urinary tract symptom presence: symptoms absent Qualified Code(s): N 40.0 - Benign prostatic hyperplasia without lower urinary tract symptoms (2) Diabetes mellitus Diabetes mellitus complication status: without complication Diabetes mellitus intermediate accountant insulin use: without intermediate accountant use Diabetes mellitus type: type 2 Qualified Code(s): E11.9 - Type 2 diabetes mellitus without complications (3) Syncope Syncope type: unspecified Qualified Code(s): R55 - Syncope and collapse (4) Gastric ulcer with hemorrhage Gastric ulcer chronicity: acute Qualified Code(s): K25.0 - Acute gastric ulcer with hemorrhage (5) Hypertension Hypertension type: essential hypertension Qualified Code(s): I10 - Essential (primary) hypertension (6) Hypotension Hypotension type: other hypotension type Qualified Code(s): I95.89 - Other hypotension (7) Patellar tendon rupture Encounter type: subsequent encounter Laterality: right Qualified Code(s): S86.811D - Strain of other muscle(s) and tendon(s) at lower leg level, right leg, subsequent encounter
[2018-11-07] MEDS: AMLODIPINE BESYLATE 5 MG TAB PO SCH (20:08)
[2018-11-08] MEDS: HEPARIN SOD 5,000 UNIT/0.5 ML VIAL SQ SCH ×3 (05:29→21:24)
[2018-11-08 08:08] LABS: Hematocrit (blood only) 29.5 % (42-52); Hemoglobin 9.7 g/dL (14.0-18.0)
[2018-11-08] MEDS: LISINOPRIL 20 MG TAB PO SCH (08:09)
[2018-11-08] MEDS: FINASTERIDE 5 MG TAB PO SCH (08:10)
[2018-11-08] MEDS: PANTOprazole 40 MG TAB PO SCH ×2 (08:10→20:15)
[2018-11-08] MEDS: SUCRALFATE 1 GM/10 ML UDC PO SCH ×4 (08:10→20:15)
[2018-11-08] MEDS: FERROUS SULFATE 325 MG TAB PO SCH ×2 (08:10→16:25)
[2018-11-08] MEDS: INSULIN ASPART 100 UNITS/ML 3 ML PEN SC SCH ×4 (08:11→20:20)
--- NOTE | 2018-11-08 16:07 | Hospitalist Progress Note ---
Date of Service November 08, 2018 Assessment & Plan (1) Upper GI bleedinnd gastric ulcers (including 1 with visible vessel) and esophagitis as seen on EGD done several days ago. This was in the setting of recent asa and coumadin use s/p right quadriceps tendon repair in late September. s/p 4 units PRBCs since admission and 2 units FFP due to therapeutic INR from coumadin at presentation. s/p 48 hours of PPI drip. Now on PO PPI bid. tolerating diet Hb up to 9.7 from 8.8, no melena, it would appear bleeding is completely resolved (2) Acute kidney injury: 2nd to hypotension/acute GI bleeding at presentation - resolved. BMP yesterday shows Cr of 1.0, making adequate urine (3) Acute blood loss anemia: 2nd to upper GI bleeding/ulcers/esophagitis. continue ferrous sulfate 325mg BID. Hb up to 9.7 s/p 4 units PRBC this admission (4) Gastric ulcer with hemorrhage: H pylori stool ag still pending PPI twice daily. (5) Esophagitis: PPI (6) Hypotension: resolved with PRBC transfusion (7) Syncope: 2nd to hypotension in setting of GI bleeding. Has not recurred. (8) Hypertension: Despite titration of lisinopril to 20mg daily his BPs are still high. Will add amlodipine 5mg HS. Follow. Would not restart HCTZ at this time. (9) Diabetes mellitus: pharmacy glycemic management appreciated defer management to them control acceptable, no hypoglycemia (10) Patellar tendon rupture: RIGHT. s/p repair - Dr Trevino - September 2018. cont immobilizer WBAT to RLE with immobilizer on at all times PT, OT he is agreeing to rehab, has a bed on 11/10 (11) BPH (benign prostatic hyperplasia): no issues cont finasteride (12) DVT prophylaxis: SCDs heparin Subjective patient doing well, participating in therapy, no melena, eating well he was excited this morning about prospect of going to [facility] unfortunately he was denied insurance, they will approve SNF can go to [facility] on , he accepts this reviewed labs, Hb up further to 9.7 vitals stable Review of Systems Review of Systems: All systems reviewed & are unremarkable except as noted in HPI & below Musculoskeletal: + joint pain (right knee), + muscle weakness (bilateral legs, right leg weaker than right) and + muscle atrophy (right thigh) Physical Exam Constitutional: WD/WN, vitals as above Eyes: PERRL, conjunctivae normal, anicteric sclerae ENMT: external ear and nose normal, oropharynx normal Neck: trachea midline, no thyromegaly Respiratory: normal respiratory effort, lungs clear to auscultation Cardiovascular: RRR, no murmur, no edema Gastrointestinal (Abdomen): normal bowel sounds, soft, nontender, no hepatosplenomegaly Musculoskeletal: Head/Neck/Chest: normocephalic and head atraumatic Extremities: + limited ROM of extremities and + abnormal strength (weak in left leg); + extremities abnormal to inspection (right leg in immobilizer) Skin: no rashes, warm and dry Neurologic: patellar DTR's 2+ bilat, sensation intact and PERRL, EOMI, accommodation nl, no face palsy, no dysarthria Psychiatric: A+Ox3, euthymic affect Lymphatic: no cervical or axillary lymphadenopathy Results & Data Vital Signs (Past 12 Hours) Vital Signs Temp Pulse Resp BP Pulse Ox 11/08/18 15:47 36.8 C 65 93 H 147/68 H 93 11/08/18 11:24 36.8 C 76 20 152/75 H 95 11/08/18 05:24 158/66 H Laboratory Results Laboratory Results - last 24 hr 11/05/18 11/07/18 11/07/18 13:45 16:28 20:26 Hgb Hct POC Glucose 155 H 130 H Stool H. pylori Ag NOT DETECTED 11/08/18 11/08/18 11/08/18 07:52 07:57 11:53 Hgb 9.7 L Hct 29.5 L POC Glucose 131 H 195 H Stool H. pylori Ag Medications Administered Current Inpatient Medications Amlodipine Besylate (Norvasc) 5 mg PO HS [facility] Stop: 12/06/18 20:59 Last Admin: 11/07/18 20:08 Dose: 5 mg Documented by: Dextrose (Dextrose 50%) 25 - 50 ml IV UD PRN; Protocol PRN Reason: Hypoglycemia Protocol Stop: 12/03/18 08:44 Ferrous Sulfate (Feosol) 325 mg PO BIDM [facility] Stop: 12/06/18 09:44 Last Admin: 11/08/18 08:10 Dose: 325 mg Documented by: Finasteride (Proscar) 5 mg PO QAM [facility] Stop: 12/06/18 09:59 Last Admin: 11/08/18 08:10 Dose: 5 mg Documented by: Glucagon (Glucagen) 1 mg IM UD PRN; Protocol PRN Reason: Hypoglycemia Protocol Stop: 12/03/18 08:44 Glucose (Glucose 40%) 15 - 30 gm PO UD PRN; Protocol PRN Reason: Hypoglycemia Protocol Stop: 12/03/18 08:44 Glucose (Dex4 Glucose) 4 - 8 tabs PO UD PRN; Protocol PRN Reason: Hypoglycemia Protocol Stop: 12/03/18 08:44 Heparin Sodium (Porcine) (Heparin Sodium (Porcine)) 5,000 units SQ Q8 [facility] Stop: 12/04/18 13:59 Last Admin: 11/08/18 13:59 Dose: 5,000 units Documented by: Sodium Chloride (Nss) 250 mls @ 15 mls/hr IV .[id number] PRN PRN Reason: For Transfusion Stop: 12/05/18 18:27 Insulin Aspart (Novolog Flexpen) 0 units SC ACHS [facility] Stop: 12/03/18 20:59 Last Admin: 11/08/18 12:34 Dose: 5 units Documented by: Lisinopril (Zestril) 20 mg PO QAM [facility] Stop: 12/07/18 08:59 Last Admin: 11/08/18 08:09 Dose: 20 mg Documented by: Miconazole Nitrate (Desenex) 1 appln EXT PRN PRN PRN Reason: Affected Skin Folds Stop: 12/07/18 08:40 Miscellaneous (Carbohydrates For Hypoglycemia) 15 - 30 gm PO UD PRN PRN Reason: Hypoglycemia Treatment Stop: 12/03/18 08:44 Pantoprazole Sodium (Protonix) 40 mg PO BID [facility] Stop: 12/05/18 20:59 Last Admin: 11/08/18 08:10 Dose: 40 mg Documented by: Simethicone (Mylicon) 80 mg PO Q6H PRN PRN Reason: Flatulence Stop: 12/05/18 22:49 Sucralfate (Carafate) 1 gm PO QID [facility] Stop: 12/03/18 20:59 Last Admin: 11/08/18 12:33 Dose: 1 gm Documented by: PG Care Time/CCT Total # of Minutes Spent Total Time Spent with Patient: Total time spent is greater than 50% in coordination of care (as documented) at patient's floor/unit and/or counseling patient: (1) BPH (benign prostatic hyperplasia) Lower urinary tract symptom presence: symptoms absent Qualified Code(s): N40.0 - Benign prostatic hyperplasia without lower urinary tract symptoms (2) Diabetes mellitus Diabetes mellitus complication status: without complication Diabetes mellitus intermission coordinator insulin use: without intermission coordinator use Diabetes mellitus type: type 2 Qualified Code(s): E11.9 - Type 2 diabetes mellitus without complications (3) Syncope Syncope type: unspecified Qualified Code(s): R55 - Syncope and collapse (4) Gastric ulcer with hemorrhage Gastric ulcer chronicity: acute Qualified Code(s): K25.0 - Acute gastric ulcer with hemorrhage (5) Hypertension Hypertension type: essential hypertension Qualified Code(s): I10 - Essential (primary) hypertension (6) Hypotension Hypotension type: other hypotension type Qualified Code(s): I95.89 - Other hypotension (7) Patellar tendon rupture Encounter type: subsequent encounter Laterality: right Qualified Code(s): S86.811D - Strain of other muscle(s) and tendon(s) at lower leg level, right leg, subsequent encounter
[2018-11-08] MEDS: AMLODIPINE BESYLATE 5 MG TAB PO SCH (20:11)
[2018-11-08] MEDS: ACETAMINOPHEN 325 MG TAB PO PRN (20:44)
[2018-11-09] MEDS: HEPARIN SOD 5,000 UNIT/0.5 ML VIAL SQ SCH ×3 (05:57→22:53)
[2018-11-09] MEDS: SUCRALFATE 1 GM/10 ML UDC PO SCH ×4 (08:14→20:05)
[2018-11-09] MEDS: LISINOPRIL 20 MG TAB PO SCH (08:14)
[2018-11-09] MEDS: PANTOprazole 40 MG TAB PO SCH ×2 (08:14→20:05)
[2018-11-09] MEDS: FERROUS SULFATE 325 MG TAB PO SCH ×2 (08:15→17:23)
[2018-11-09] MEDS: FINASTERIDE 5 MG TAB PO SCH (08:15)
[2018-11-09] MEDS: INSULIN ASPART 100 UNITS/ML 3 ML PEN SC SCH ×4 (08:16→21:03)
--- NOTE | 2018-11-09 16:47 | Hospitalist Progress Note ---
Date of Service November 09, 2018 Assessment & Plan (1) Upper GI bleedinnd gastric ulcers (including 1 with visible vessel) and esophagitis as seen on EGD done several days ago. This was in the setting of recent asa and coumadin use s/p right quadriceps tendon repair in late September. s/p 4 units PRBCs since admission and 2 units FFP due to therapeutic INR from coumadin at presentation. s/p 48 hours of PPI drip. stable on PO PPI bid. tolerating diet Hb up to 9.7 from 8.8, no melena, it would appear bleeding is completely resolved (2) Acute kidney injury: 2nd to hypotension/acute GI bleeding at presentation - resolved. most recent BMP shows Cr of 1.0, making adequate urine (3) Acute blood loss anemia: 2nd to upper GI bleeding/ulcers/esophagitis. continue ferrous sulfate 325mg BID. Hb up to 9.7 s/p 4 units PRBC this admission (4) Gastric ulcer with hemorrhage: H pylori stool ag still pending PPI twice daily. (5) Esophagitis: PPI (6) Hypotension: resolved with PRBC transfusion (7) Syncope: 2nd to hypotension in setting of GI bleeding. Has not recurred. (8) Hypertension: Despite titration of lisinopril to 20mg daily his BPs are still high. Will add amlodipine 5mg HS. Follow. Would not restart HCTZ at this time. (9) Diabetes mellitus: pharmacy glycemic management appreciated defer management to them control acceptable, no hypoglycemia (10) Patellar tendon rupture: RIGHT. s/p repair - Dr Trevino - September 2018. cont immobilizer WBAT to RLE with immobilizer on at all times PT, OT he is agreeing to rehab, has a bed on 11/10 will discuss follow up with ortho tomorrow and discuss Coumadin for DVT prophylaxis (11) BPH (benign prostatic hyperplasia): no issues cont finasteride (12) DVT prophylaxis: SCDs heparin Subjective patient doing well today participating in therapy eating well no BM or melena, says he normally moves bowels once every 7-10 days discussed going to rehab tomorrow, he says he is ready Review of Systems Review of Systems: All systems reviewed & are unremarkable except as noted in HPI & below Musculoskeletal: + joint pain (right knee), + muscle weakness (bilateral legs, right leg weaker than right) and + muscle atrophy (right thigh) Physical Exam Constitutional: WD/WN, vitals as above Eyes: PERRL, conjunctivae normal, anicteric sclerae ENMT: external ear and nose normal, oropharynx normal Neck: trachea midline, no thyromegaly Respiratory: normal respiratory effort, lungs clear to auscultation Cardiovascular: RRR, no murmur, no edema Gastrointestinal (Abdomen): normal bowel sounds, soft, nontender, no hepatosplenomegaly Musculoskeletal: Head/Neck/Chest: normocephalic and head atraumatic Extremities: + limited ROM of extremities and + abnormal strength (weak in left leg); + extremities abnormal to inspection (right leg in immobilizer) Skin: no rashes, warm and dry Neurologic: patellar DTR's 2+ bilat, sensation intact and PERRL, EOMI, accommodation nl, no face palsy, no dysarthria Psychiatric: A+Ox3, euthymic affect Lymphatic: no cervical or axillary lymphadenopathy Results & Data Vital Signs (Past 12 Hours) Vital Signs Temp Pulse Pulse Resp BP BP Pulse Ox 11/09/18 16:15 73 11/09/18 15:00 36.8 C 71 16 156/67 H 96 11/09/18 12:32 36.8 C 71 16 169/74 H 95 11/09/18 11:28 75 151/77 H 95 11/09/18 09:45 36.2 C L 92 H 16 195/88 H 96 11/09/18 07:15 78 Medications Administered Current Inpatient Medications Acetaminophen (Tylenol) 650 mg PO Q4H PRN PRN Reason: Pain Stop: 12/08/18 20:32 Last Admin: 11/08/18 20:44 Dose: 650 mg Documented by: Amlodipine Besylate (Norvasc) 5 mg PO HS LES Stop: 12/06/18 20:59 Last Admin: 11/08/18 20:11 Dose: 5 mg Documented by: Dextrose (Dextrose 50%) 25 - 50 ml IV UD PRN; Protocol PRN Reason: Hypoglycemia Protocol Stop: 12/03/18 08:44 Ferrous Sulfate (Feosol) 325 mg PO BIDM LES Stop: 12/06/18 09:44 Last Admin: 11/09/18 08:15 Dose: 325 mg Documented by: Finasteride (Proscar) 5 mg PO QAM LES Stop: 12/06/18 09:59 Last Admin: 11/09/18 08:15 Dose: 5 mg Documented by: Glucagon (Glucagen) 1 mg IM UD PRN; Protocol PRN Reason: Hypoglycemia Protocol Stop: 12/03/18 08:44 Glucose (Glucose 40%) 15 - 30 gm PO UD PRN; Protocol PRN Reason: Hypoglycemia Protocol Stop: 12/03/18 08:44 Glucose (Dex4 Glucose) 4 - 8 tabs PO UD PRN; Protocol PRN Reason: Hypoglycemia Protocol Stop: 12/03/18 08:44 Heparin Sodium (Porcine) (Heparin Sodium (Porcine)) 5,000 units SQ Q8 LES Stop: 12/04/18 13:59 Last Admin: 11/09/18 14:02 Dose: 5,000 units Documented by: Sodium Chloride (Nss) 250 mls @ 15 mls/hr IV .[id number] PRN PRN Reason: For Transfusion Stop: 12/05/18 18:27 Insulin Aspart (Novolog Flexpen) 0 units SC ACHS [facility] Stop: 12/03/18 20:59 Last Admin: 11/09/18 12:27 Dose: 8 units Documented by: Lisinopril (Zestril) 20 mg PO QAM [facility] Stop: 12/07/18 08:59 Last Admin: 11/09/18 08:14 Dose: 20 mg Documented by: Miconazole Nitrate (Desenex) 1 appln EXT PRN PRN PRN Reason: Affected Skin Folds Stop: 12/07/18 08:40 Miscellaneous (Carbohydrates For Hypoglycemia) 15 - 30 gm PO UD PRN PRN Reason: Hypoglycemia Treatment Stop: 12/03/18 08:44 Pantoprazole Sodium (Protonix) 40 mg PO BID [facility] Stop: 12/05/18 20:59 Last Admin: 11/09/18 08:14 Dose: 40 mg Documented by: Simethicone (Mylicon) 80 mg PO Q6H PRN PRN Reason: Flatulence Stop: 12/05/18 22:49 Sucralfate (Carafate) 1 gm PO QID [facility] Stop: 12/03/18 20:59 Last Admin: 11/09/18 12:47 Dose: 1 gm Documented by: PG Care Time/CCT Total # of Minutes Spent Total Time Spent with Patient: Total time spent is greater than 50% in coordination of care (as documented) at patient's floor/unit and/or counseling patient: (1) Gastric ulcer with hemorrhage Gastric ulcer chronicity: acute Qualified Code(s): K25.0 - Acute gastric ulcer with hemorrhage (2) Hypotension Hypotension type: other hypotension type Qualified Code(s): I95.89 - Other hypotension (3) Syncope Syncope type: unspecified Qualified Code(s): R55 - Syncope and collapse (4) Hypertension Hypertension type: essential hypertension Qualified Code(s): I10 - Essential (primary) hypertension (5) Diabetes mellitus Diabetes mellitus type: type 2 Diabetes mellitus retirement insulin use: without buttermaker continuous churn use Diabetes mellitus complication status: without complication Qualified Code(s): E11.9 - Type 2 diabetes mellitus without complications (6) Patellar tendon rupture Encounter type: subsequent encounter Laterality: right Qualified Code(s): S86.811D - Strain of other muscle(s) and tendon(s) at lower leg level, right l eg, subsequent encounter (7) BPH (benign prostatic hyperplasia) Lower urinary tract symptom presence: symptoms absent Qualified Code(s): N40.0 - Benign prostatic hyperplasia without lower urinary tract symptoms
[2018-11-09] MEDS: AMLODIPINE BESYLATE 5 MG TAB PO SCH (20:05)
[2018-11-10] MEDS: HEPARIN SOD 5,000 UNIT/0.5 ML VIAL SQ SCH (06:04)
[2018-11-10] MEDS: ACETAMINOPHEN 325 MG TAB PO PRN (08:17)
[2018-11-10] MEDS: FINASTERIDE 5 MG TAB PO SCH (08:18)
[2018-11-10] MEDS: PANTOprazole 40 MG TAB PO SCH (08:19)
[2018-11-10] MEDS: LISINOPRIL 20 MG TAB PO SCH (08:19)
[2018-11-10] MEDS: SUCRALFATE 1 GM/10 ML UDC PO SCH ×2 (08:19→12:06)
[2018-11-10] MEDS: FERROUS SULFATE 325 MG TAB PO SCH (08:19)
[2018-11-10] MEDS: INSULIN ASPART 100 UNITS/ML 3 ML PEN SC SCH ×2 (08:19→12:05)
--- NOTE | 2018-11-10 13:10 | Discharge Summary ---
Date of Service November 10, 2018 Admission HPI Per Admitting Provider Mr. Carlson is an 78 year old male with a past medical history of type 2 diabetes mellitus, hypertension, asthma, recent surgery on 10/11 (a right leg quadriceps repair) who presents to the emergency department from [facility] after a syncopal episode. Since yesterday, he reports he has not been feeling well. He has been nauseous, with an episode of vomiting. He endorses abdominal pain that began today, and has been having several bloody bowel movements. He states that his syncopal episode occurred while he was on the commode. He states his abdominal pain was severe, and is now down to a 6/10. He denies fever, chills, chest pain, cough, or shortness of breath. He reports that he is on Coumadin, but is unsure why. He states that he does not have a history of atrial fibrillation or DVT/PE. He reports that he does not have a history of blood in his bowel movements, and states that all of his prior colonoscopies have been normal. He does state his last colonoscopy was 10 years ago. Past medical history: Hypertension, type 2 diabetes mellitus, asthma, osteoarthritis Past surgical history: Appendectomy, foot surgery, tonsillectomy, left total knee replacement, right leg quadriceps repair Medications: Aspirin, ferrous sulfate, finasteride, glipizide, lisinoprilhydrochlorothiazide, metformin, Percocet, warfarin Allergies: No known drug allergies Social history: Currently living at [facility]. No tobacco use, occasional alcohol use. Principal Diagnosis Acute GI bleed due to gastric ulcer Discharge Exam Constitutional WD/WN, vitals as above Eyes PERRL, conjunctivae normal, anicteric sclerae ENMT external ear and nose normal, oropharynx normal Neck trachea midline, no thyromegaly Respiratory normal respiratory effort, lungs clear to auscultation Cardiovascular RRR, no murmur, no edema Gastrointestinal (Abdomen) normal bowel sounds, soft, nontender, no hepatosplenomegaly Musculoskeletal Head/Neck/Chest: normocephalic and head atraumatic Extremities: + limited ROM of extremities and + abnormal strength (weak in left leg); + extremities abnormal to inspection (right leg in immobilizer) Skin no rashes, warm and dry Neurologic patellar DTR's 2+ bilat, sensation intact and PERRL, EOMI, accommodation nl, no face palsy, no dysarthria Psychiatric A+Ox3, euthymic affect Lymphatic no cervical or axillary lymphadenopathy Discharge Data Allergies Allergy/AdvReac Type Severity Reaction Status Date / Time No Known Allergies Allergy Unverified 11/02/18 23:57 Consultations 11/02/18 23:33 ED Decision to Admit Stat 11/03/18 01:44 Consult Case Management - Discharge Planning Routine Consult Manager Operating Routine 11/03/18 01:56 Consult Gastroenterology Routine Procedures Performed Operation Date: 11/03/18 12:45 Actual Procedures p EGD Hemostasis - Jessica Rico MD Ordered Studies 11/03/18 00:51 CT abd pelvis wo con Urgent Hospital Course (1) Upper GI bleeding: due to two gastric ulcers (including 1 with visible vessel) and esophagitis as seen on EGD done several days ago. This was in the setting of recent asa and coumadin use s/p right quadriceps tendon repair in late September. s/p 4 units PRBCs since admission and 2 units FFP due to therapeutic INR from coumadin at presentation. s/p 48 hours of PPI drip. stable on PO PPI bid. tolerating diet Hb up to 9.7 from 8.8, no melena, it would appear bleeding is completely resolved will continue Protonix BID x 4 weeks then daily continue Carafate for another week okay to resume aspirin and Coumadin on discharge since he is now on PPI therapy (2) Acute kidney injury: 2nd to hypotension/acute GI bleeding at presentation - resolved. most recent BMP shows Cr of 1.0, making adequate urine (3) Acute blood loss anemia: 2nd to upper GI bleeding/ulcers/esophagitis. continue ferrous sulfate 325mg BID. Hb up to 9.7 s/p 4 units PRBC this admission but no transfusions for 5 days prior to discharge (4) Gastric ulcer with hemorrhage: H pylori stool ag NOT DETECTED so no role for triple therapy PPI twice daily. (5) Esophagitis: PPI (6) Hypotension: resolved with PRBC transfusion (7) Syncope: 2nd to hypotension in setting of GI bleeding. Has not recurred. (8) Hypertension: Despite titration of lisinopril to 20mg daily his BPs are still high. Will add amlodipine 5mg HS. Follow. Would not restart HCTZ at this time. (9) Diabetes mellitus: pharmacy glycemic management appreciated defer management to them control acceptable, no hypoglycemia (10) Patellar tendon rupture: RIGHT. s/p repair - Dr Trevino - September 2018. cont immobilizer WBAT to RLE with immobilizer on at all times PT, OT he is agreeing to rehab, has a bed on 11/10 Coumadin DVT prophylaxis will resume, was on Heprain SC while here INR goal should be 2.0, not higher follow up with Dr. Amato on 11/14 (11) BPH (benign prostatic hyperplasia): no issues cont finasteride (12) DVT prophylaxis: SCDs heparin Total Time Total Time Spent Total Time Spent (In Minutes): 34 minutes Total Time Includes: Examination of the Patient, Discharge Planning and Medication Reconciliation Discharge Plan Discharge Items Patient Disposition: Transfer Assisted Fac Reason For Visit: SEPSIS, ANEMIA, GI BLEED Discharge Diagnosis: Acute GI bleed due to gastric ulcer Acute kidney injury, resolved Acute blood loss anemia, Hb stable s/p right knee surgery Condition on Discharge: Good Health Concerns: - watch INR closely, would want it around 2.0 - watch for any GI bleeding, no bleeding for nearly a week Goals: - improve strength and mobility Activity: Per Instructions section Lifting: None Bathing: Keep incision dry Exercise/Sports: Gradually increase as tolerated Weightbearing: Full weightbearing Weightbearing Comment: keep right knee immobilizer and cast on at all times Non-emergency contact: Primary Care Provider and Surgeon Call non-emergency contact if: you have any medication questions, your symptoms worsen, your pain is not controlled, your pain is worsening and you have a fever Follow-up/Referrals: Glynn Brennan D.O. [Primary Care Provider] - Diet: Carb Consistent or DM2 Addtl Attending Provider Instructions: Medications: - PROTONIX: 40mg twice a day for one month then reduce to once a day - CARAFATE: take 10mL by mouth four times a day for 5 more days to help ulcer heal - OXYCODONE: use as needed for knee pain - ASPIRIN: please note that dose is reduced to 81mg daily - COUMADIN: 2mg daily, okay to resume, please monitor INR every other day or every day if possible while at SNF want INR at 1.9 to 2.1 range, this is for DVT prophylaxis after knee surgery, not actually treating DVT continue until okay to stop per orthopedic surgery Acute GI bleed due to gastric ulcers, acute blood loss anemia no further bleeding for over a week had EGD with ulcers and one visible vessel that was clipped treated with Protonix IV and then transitioned to Protonix PO BID, continue for 1 month then once a day carafate for 5 more days okay to resume aspirin but at 81mg daily avoid NSAIDs s/p right knee surgery with Dr. Naranjo he has follow up on 11/[address] Naranjo he is full weight bearing on right leg but NEEDS to wear immobilizer and cast at all times do not remove the cast until ordered by Dr. Naranjo Pending Studies at Discharge: No Stand-Alone Forms: [facility] Skilled Items Patient informed of condition?: Yes DNR: No Discharge Level of Care: Skilled Communicable Disease: No Discharge Prognosis: Stable Lines: None Urinary Catheter: No Medications and DC Order Prescriptions: New sucralfate 100 mg/mL Suspension 10 ml PO QID 5 Days Qty: 200 RF: 0 pantoprazole 40 mg Tablet,Delayed Release (Dr/Ec) 40 mg PO BID 30 Days Qty: 60 RF: 1 Continued glipizide 10 mg Tablet 20 mg PO QAM RF: 0 metformin 1,000 mg Tablet 1,000 mg PO QAM RF: 0 finasteride [Proscar] 5 mg Tablet 5 mg PO QAM RF: 0 acetaminophen [Tylenol] 325 mg Tablet 650 mg PO Q4H MDD 3G PRN (Reason: Fever Or Pain) RF: 0 warfarin 2 mg tablet 2 mg PO HS RF: 0 ferrous sulfate 325 mg (65 mg iron) Tablet 325 mg PO TID RF: 0 polyethylene glycol 3350 [Miralax] 17 gram/dose Powder 17 g PO QAM RF: 0 ondansetron HCl [Zofran] 4 mg Tablet 4 mg PO Q6H PRN (Reason: Nausea) RF: 0 lisinopril-hydrochlorothiazide 20-12.5 mg tablet 1 tab PO QAM RF: 0 sennosides 8.6 mg Tablet 8.6 mg PO QAM RF: 0 oxycodone-acetaminophen [Percocet] 5-325 mg tablet 2 tab PO Q4H MDD 3GM APAP PRN (Reason: pain) Qty: 30 RF: 0 Discontinued aspirin [Aspir-81] 81 mg Tablet,Delayed Release (Dr/Ec) 162 mg PO QAM RF: 0 Discharge Orders: Discharge Order (Routine); Ordered 11/10/18 Ordered By: Saeed Maardiaga Admission Data Admit Date/Time: 11/03/18 00:59 Attending Provider: Saeed Maradiaga Admit Provider: Tom Dey Primary Care Provider: Glynn Brennan Other Providers: Kenney Rockwell ; Brian Ruggiero ; Benjamin Medina Other Interventions: Discharge Summary Assessment (RN) Last Done: 11/10/18 11:07 DC Date/Time DO NOT enter until pt leaves facility: 11/10/18 13:15
== END 2018-11-10 13:15 | DRG 813 ==
LOC: ED 22:42 → SUATTDRO 11-03 00:59 → 1E 11-03 00:59 → 2N 11-04 12:37
DX: Z79.84 Long term (current) use of oral hypoglycemic drugs; K20.9 Esophagitis, unspecified; D68.32 Hemorrhagic disorder due to extrinsic circulating anticoagulants; N17.9 Acute kidney failure, unspecified; E11.9 Type 2 diabetes mellitus without complications; S86.811D Strain of other muscle(s) and tendon(s) at lower leg level, right leg, subsequent encounter; Z79.82 Long term (current) use of aspirin; X58.XXXA Exposure to other specified factors, initial encounter; D62 Acute posthemorrhagic anemia; I95.9 Hypotension, unspecified; Z96.652 Presence of left artificial knee joint; I10 Essential (primary) hypertension; K25.4 Chronic or unspecified gastric ulcer with hemorrhage